=== PATIENT | male | born 1990 | race Caucasian/White ===

== ENCOUNTER → 2022-04-13 14:10 | Outpatient (BNVA) | payer BC, MEDICAID, SELFPAY | PROVIDERS: Visit Provider Registered Nurse Neonatal Intensive Care | DX: Z20.822 Contact with and (suspected) exposure to COVID-19 (principal) | CPT/HCPCS: 87426 ==

== ENCOUNTER 2022-05-26 02:38 | Emergency (ER) | payer BC, MEDICAID, SELFPAY ==
[2022-05-26 02:44] VITALS: BP 150/95; PULSE 116; RESP 16; TEMP 36.6; O2SAT 97
--- NOTE | 2022-05-26 02:50 | ED_ITS ---
HPI - General Adult General: Chief complaint: General Medical Stated complaint: ETOH Time Seen by Provider: 05/26/22 02:39 Source: patient and EMS Mode of arrival: EMS Limitations: no limitations History of Present Illness: 32-year-old male states he has been drinking today along with using marijuana. He states he has had 3-4 shots of alcohol tonight he states he is also smoked 8 bowls of marijuana. He states that roughly an hour ago he started to feel like he was seeing triple vision. He states that his vision has been blurry and he feels like he is seeing 3 of everything. He had no slurred speech no weakness patient is able ambulate here. Denies any pain anywhere PFS ED PFSH: Medical History (Updated 05/26/22 @ 04:29 by Carlos Stanley MD) Seizure Social History (Updated 05/26/22 @ 02:51 by Carlos Stanley MD) Substance/Drug Use: current Substance/Drug use type: Marijuana Physical Exam Const: COMMON NORMALS: no acute distress and patient oriented x3 OTHER: Appears to be under the influence of drugs and alcohol HENMT: COMMON NORMALS: normocephalic and atraumatic HEAD & SCALP: normocephalic and atraumatic Eye: COMMON NORMALS: Equal, round and reactive pupils present and EOMs intact bilaterally PUPIL: Yes Equal, round and reactive pupils present Neck/C-Spine: COMMON NORMALS: full ROM and supple Chest: COMMONS NORMALS: normal inspection of the chest and normal palpation of entire chest wall Resp: COMMON NORMALS: normal respiratory effort, No retractions, No use of accessory muscles and clear to auscultation bilaterally AUSCULTATION: clear to auscultation bilaterally Cardio: COMMON NORMALS: regular rate, regular rhythm and No murmurs present (Cardio) RATE: regular rate RHYTHM: regular rhythm GI: COMMON NORMALS: Normal to inspection, nondistended, normoactive bowel sounds present, Soft to palpation, non-tender and no masses PALPATION: Yes Soft to palpation Extremity: COMMON NORMALS: normal to inspection and full ROM Neuro: COMMON NORMALS: patient oriented x3, moves all extremities and no focal motor deficits Psych: COMMON NORMALS: mental status grossly normal, Normal thought process present and cooperative THOUGHT PROCESS: Normal thought process present Skin: COMMON NORMALS: no rashes or lesions noted and no wounds GENERAL SKIN EXAM: no rashes or lesions noted Course Vital Signs: Vital signs: Vital Signs Temperature 97.8 F 05/26/22 02:44 Pulse Rate 111 H 05/26/22 04:52 Respiratory Rate 16 05/26/22 04:52 Blood Pressure 165/90 05/26/22 04:52 Pulse Oximetry 97 05/26/22 04:52 Oxygen Delivery Me thod 05/26/22 02:44 MDM - General Adult Medical Decision Making Patient presents with blurry vision that is now resolved is likely due to drug abuse he feels improved here he is able ambulate he is stable for discharge he is to follow-up with PCP and return if worsening. Lab Data : 05/26/22 02:25 05/26/22 02:25 Laboratory Results WBC 8.7 10^3/uL (4.0-10.0) 05/26/22 02:25 RBC 4.23 10^6/uL (4.1-5.3) 05/26/22 02:25 Hgb 14.3 g/dL (11.7-16.6) 05/26/22 02:25 Hct 39.9 % (42.0-52.0) L 05/26/22 02:25 MCV 94.3 fl (80-94) H 05/26/22 02:25 MCH 33.8 pg (28.0-34.0) 05/26/22 02:25 MCHC 35.8 g/dL (30.0-36.0) 05/26/22 02:25 RDW 11.3 % (12.1-15.1) L 05/26/22 02:25 Plt Count 181 10^3/cmm (130-400) 05/26/22 02:25 MPV 11.0 fL (7.4-10.4) H 05/26/22 02:25 Neut % (Auto) 29.1 % 05/26/22 02:25 Lymph % (Auto) 66.4 % 05/26/22 02:25 [place] % (Auto) 4.0 % 05/26/22 02:25 Eos % (Auto) 0.2 % 05/26/22 02:25 Baso % (Auto) 0.2 % 05/26/22 02:25 Neut # (Auto) 2.51 10^3/uL (1.8-7.7) 05/26/22 02:25 Lymph # (Auto) 5.8 10^3/uL (0.8-4.8) H 05/26/22 02:25 [place] # (Auto) 0.4 10^3/uL (0.2-0.9) 05/26/22 02:25 Eos # (Auto) 0.0 10^3/uL (0.0-0.8) 05/26/22 02:25 Baso # (Auto) 0.0 10^3/uL (0.0-0.1) 05/26/22 02:25 Nucleated RBC % (auto) 0 % 05/26/22 02:25 Nucleated RBCs # 0.0 /100WBC 05/26/22 02:25 Sodium 140 mmol/L (136-145) 05/26/22 02:25 Potassium 3.4 mmol/L (3.5-5.1) L 05/26/22 02:25 Chloride 101 mmol/L (98-107) 05/26/22 02:25 Carbon Dioxide 26 mmol/L (22-29) 05/26/22 02:25 Anion Gap 16.4 (5-19) 05/26/22 02:25 BUN 13 mg/dL (6-20) 05/26/22 02:25 Creatinine 1.0 mg/dL (0.7-1.2) 05/26/22 02:25 GFR Calculation 87.7 mL/min (90-130) L 05/26/22 02:25 Glucose 126 mg/dL (65-115) H 05/26/22 02:25 Calculated Osmolality 292 mOsm/kg (285-295) 05/26/22 02:25 Calcium 9.7 mg/dL (8.5-10.5) 05/26/22 02:25 Total Bilirubin 0.3 mg/dL (0.15-1.2) 05/26/22 02:25 AST 15 U/L (0-40) 05/26/22 02:25 ALT 11 U/L (0-41) 05/26/22 02:25 Alkaline Phosphatase 40 U/L (40-130) 05/26/22 02:25 Total Protein 7.2 g/dL (6.6-8.7) 05/26/22 02:25 Albumin 4.8 g/dL (3.5-5.2) 05/26/22 02:25 Globulin 2.4 g/dL (1.3-4.6) 05/26/22 02:25 Valproic Acid 134.5 ug/mL (50-100) H 05/26/22 02:25 Ethyl Alcohol < 10 mg/dL (0-10) 05/26/22 02:25 EKG Data EKG 1: I personally reviewed and interpreted this EKG as follows: EKG interpretation date: 05/26/22 EKG interpretation time: 03:00 Interpretation: sinus tach hr [address] or t wave abnormalities qrs 93 qtc 391 Discharge Plan Discharge Patient Disposition: Home Clinical Impression: Blurred vision, Cannabis abuse Prescriptions: No Action clobazam 10 mg tablet 25 mg PO BID oxcarbazepine 300 mg tablet 450 mg PO BID lamotrigine 100 mg tablet 100 mg PO BID aripiprazole 15 mg tablet 7.5 mg PO DAILY divalproex 250 mg tablet,delayed release (DR/EC) 750 mg PO TID mupirocin 2 % ointment 1 applic topical TID Qty: 22 0RF Discharge Orders: Discharge ED (Routine); Ordered 05/26/22 Ordered By: Carlos Stanley Discharge Diet: Advance as tolerated Discharge Activity: Resume usual activity Patient Instructions: Marijuana Abuse Coding Level of Care Code ED Hair Machine Operator for Chg Fwd Exam Comprehensive
--- NOTE | 2022-05-26 03:00 | ECG_ITS ---
[facility] Test Date: 2022-05-26 Pat Name: Guido Dill Department: Room: Gender: Male Seat Trimmer: : 1990 Requested By: Carlos Stanley Order Number: [id number] Sita MD: Ramiro Crocker M.D. Measurements Intervals Matthews Rate: 113 P: 55 NV: 140 QRS: 84 QRSD: 93 T: 48 QT: 324 QTc: 445 Interpretive Statements SINUS TACHYCARDIA VOLTAGE CRITERIA FOR LVH [MEETS CRITERIA IN ONE OF: R(aVL), S(V1), R(V5), R(V5/V6)+S(V1)] Compared to ECG 06/07/2019 06:05:10 Left ventricular hypertrophy now present Sinus bradycardia no longer present Early repolarization no longer present Electronically Signed On 05-27-2022 22:01:40 CDT by Ramiro Crocker M.D. [id number]
[2022-05-26] MEDS: lactated ringers 1,000 ML 999 ML IV (03:02)
[2022-05-26 03:03] LABS: Basophils % 0.2 %; Eosinophils % 0.2 %; Hematocrit 39.9 % (42.0-52.0); Hemoglobin 14.3 g/dL (11.7-16.6); Lymphocytes # 5.8 10^3/uL (0.8-4.8); Lymphocytes % 66.4 %; Mean Corpuscular HGB Conc 35.8 g/dL (30.0-36.0); Mean Corpuscular Hemoglobin 33.8 pg (28.0-34.0); Mean Corpuscular Volume 94.3 fl (80-94); Monocytes # 0.4 10^3/uL (0.2-0.9); Neutrophils # 2.51 10^3/uL (1.8-7.7); Neutrophils % 29.1 %; Nucleated Red Blood Cells % 0 %; Platelet Count 181 10^3/cmm (130-400); Red Blood Count 4.23 10^6/uL (4.1-5.3); Red Cell Distribution Width 11.3 % (12.1-15.1); White Blood Count 8.7 10^3/uL (4.0-10.0)
[2022-05-26] MEDS: LORazepam 1 mg Tablet PO (03:06)
[2022-05-26 03:21] LABS: Valproic Acid Level 134.5 ug/mL (50-100)
[2022-05-26 03:22] LABS: Alanine Aminotransferase 11 U/L (0-41); Albumin Level 4.8 g/dL (3.5-5.2); Alkaline Phosphatase 40 U/L (40-130); Anion Gap 16.4 (5-19); Aspartate Amino Transferase 15 U/L (0-40); Blood Urea Nitrogen 13 mg/dL (6-20); Calcium 9.7 mg/dL (8.5-10.5); Carbon Dioxide 26 mmol/L (22-29); Chloride 101 mmol/L (98-107); Globulin 2.4 g/dL (1.3-4.6); Glomerular Filtration Rate 87.7 mL/min (90-130); Glucose 126 mg/dL (65-115); Osmolality Calculated 292 mOsm/kg (285-295); Potassium 3.4 mmol/L (3.5-5.1); Sodium 140 mmol/L (136-145); Total Bilirubin 0.3 mg/dL (0.15-1.2); Total Protein 7.2 g/dL (6.6-8.7)
[2022-05-26 03:25] LABS: Alcohol Level < 10 mg/dL (0-10)
[2022-05-26 03:40] LABS: Slide Review Slide Review Perform
[2022-05-26 04:52] VITALS: BP 165/90; PULSE 111; RESP 16; O2SAT 97
== END 2022-05-26 04:54 | disposition home or self-care (01) ==
PROVIDERS: Emergency Provider Emergency Medicine
DX: H53.8 Other visual disturbances (principal); F12.10 Cannabis abuse, uncomplicated
CPT/HCPCS: 80053; 80164; 80307; 85025; 93005; 96360; 96361; 99284

== ENCOUNTER 2022-06-25 16:49 | Inpatient (IN) | payer BC, SELFPAY ==
--- NOTE | 2022-06-25 16:52 | ED.C_ITS ---
HPI - Psych General: Chief Complaint: Psychiatric Symptoms Stated Complaint: SUICIDAL IDEATIONS Time Seen by Provider: 06/25/22 16:52 Limitations: other (Mental state) History of Present Illness: Mr. Dill is a 32-year-old gentleman with history of psychiatric disorder and seizures presenting to the emergency department due to suicidal ideation and psychiatric symptoms. History is somewhat limited as the patient appears quite anxious and frantic at times. He does endorse suicidal ideation with plan to cut himself though this has been going on for so me time. Apparently he was in half-way and released and was trying to get back into half-way to see his friends. He has quite focused on seeing his friends and appears to be fearful of not being able to see his friends that he made in half-way. He did report that he would commit a crimes to get back into half-way. He has difficulty articulating why he feels so strongly about this. History is otherwise limited by current psychiatric state. Review of Systems General: Reports: ROS unobtainable due to medical condition PFSH ED PFSH: Medical History (Updated 07/09/22 @ 00:00 by Henri Garrett MD) Bipolar disorder Psychiatric care Seizure Family History (Updated 07/06/22 @ 13:29 by Jcarlos Yu MD) Grandmother Hyperlipidemia Hypertension Mother Lupus Other Cancer Stroke Denies family history of Diabetes CAD (coronary artery disease) Clotting disorder Psychiatric illness Chronic kidney disease (CKD) Anesthesia complication Bleeding disorder Lung disease Social History (Updated 07/06/22 @ 13:11 by Shanell Coon LPN) Smoking and tobacco status: current some day smoker e-cigarettes E-Cigarette Details: vaporizer device Alcohol intake: former Desire information about alcohol rehabilitation?: No Substance/Drug Use: current Substance/Drug use frequency: daily Substance/Drug use type: Marijuana Desire information about substance/drug rehabilitation?: No Lives independently: Yes Marital status: Single Number of children: 0 Current occupational status: unemployed Current gender identity: Male Physical Exam Const: COMMON NORMALS: alert GENERAL APPEARANCE: well developed HENMT: COMMON NORMALS: normocephalic and atraumatic HEAD & SCALP: normocephalic and atraumatic Eye: COMMON NORMALS: conjunctivae normal CONJUNCTIVA: Yes conjunctivae normal SCLERA: sclerae normal Neck/C-Spine: COMMON NORMALS: supple GENERAL: Yes trachea midline Resp: COMMON NORMALS: clear to auscultation bilaterally EFFORT & IN SPECTION: Yes able to speak in complete sentences and Yes tachypneic AUSC ULTATION: clear to auscultation bilaterally Cardio: COMMON NORMALS: regular rate RATE: regular rate GI: COMMON NORMALS: Soft to palpation PALPATION: Yes Soft to palpation and No Tenderness to palpation present (GI) PERCUSSION: normal to percussion Extremity: GENERAL: Yes normal exam except as noted and No edema Neuro: COMMON NORMALS: moves all extremities SENSORIUM/ORIENTATION: Yes alert and No Orientation impaired Psych: ATTITUDE: Yes bizarre ACTIVITY/MOTOR BEHAVIOR: Yes fidgeting MOOD & AFFECT: Yes anxious and Yes fearful THOUGHT PROCESS: Perseverating thought process present THOUGHT CONTENT: Yes Suicidality present INSIGHT: Limited insight present (Psych) JUDGEMENT: questionable Course Vital Signs: Vital signs: Vital Signs Temperature 98.0 F 06/29/22 11:47 Pulse Rate 51 L 06/29/22 11:47 Respiratory Rate 16 06/29/22 11:47 Blood Pressure 100/82 06/29/22 11:47 Pulse Oximetry 97 06/29/22 11:47 Oxygen Delivery Me thod 06/29/22 06:00 MDM - Psych Medical Decision Making 32-year-old male presenting for psychiatric evaluation. Exams above. Patient is acting bizarrely and is fixated on returning to half-way. No leukocytosis or significant hematologic abnormality. Mild dehydration, patient can satisfactorily orally rehydrate. Negative toxic ingestions. Patient became increasingly frantic and Ativan and Geodon given with desired therapeutic effect. Given the patient's bizarre behavior and concern regarding suicidal ideation as well as patient reported plan to admit crime if necessary to get back into half-way I do believe that he requires inpatient psychiatric assessment and stabilization. Based on ED evaluation at this point there is no obvious condition that would preclude the patient from inpatient management of psychiatric symptoms. Discussed case with psychiatry service and patient admitted to neuropsych unit. Medical Records I reviewed the patient's medical records. Lab Data I reviewed the patient's lab results. 06/25/22 17:49 06/25/22 17:49 Laboratory Results WBC 5.8 10^3/uL (4.0-10.0) 06/25/22 17:49 RBC 4.09 10^6/uL (4.1-5.3) L 06/25/22 17:49 Hgb 13.5 g/dL (11.7-16.6) 06/25/22 17:49 Hct 38.1 % (42.0-52.0) L 06/25/22 17:49 MCV 93.2 fl (80-94) 06/25/22 17:49 MCH 33.0 pg (28.0-34.0) 06/25/22 17:49 MCHC 35.4 g/dL (30.0-36.0) 06/25/22 17:49 RDW 11.8 % (12.1-15.1) L 06/25/22 17:49 Plt Count 175 10^3/cmm (130-400) 06/25/22 17:49 MPV 10.4 fL (7.4-10.4) 06/25/22 17:49 Neut % (Auto) 43.9 % 06/25/22 17:49 Lymph % (Auto) 47.9 % 06/25/22 17:49 [place] % (Auto) 7.6 % 06/25/22 17:49 Eos % (Auto) 0.3 % 06/25/22 17:49 Baso % (Auto) 0.3 % 06/25/22 17:49 Neut # (Auto) 2.52 10^3/uL (1.8-7.7) 06/25/22 17:49 Lymph # (Auto) 2.8 10^3/uL (0.8-4.8) 06/25/22 17:49 [place] # (Auto) 0.4 10^3/uL (0.2-0.9) 06/25/22 17:49 Eos # (Auto) 0.0 10^3/uL (0.0-0.8) 06/25/22 17:49 Baso # (Auto) 0.0 10^3/uL (0.0-0.1) 06/25/22 17:49 Nucleated RBC % (auto) 0 % 06/25/22 17:49 Nucleated RBCs # 0.0 /100WBC 06/25/22 17:49 Sodium 133 mmol/L (136-145) L 06/25/22 17:49 Potassium 3.4 mmol/L (3.5-5.1) L 06/25/22 17:49 Chloride 100 mmol/L (98-107) 06/25/22 17:49 Carbon Dioxide 26 mmol/L (22-29) 06/25/22 17:49 Anion Gap 10.4 (5-19) 06/25/22 17:49 BUN 16 mg/dL (6-20) 06/25/22 17:49 Creatinine 0.8 mg/dL (0.7-1.2) 06/25/22 17:49 GFR Calculation 113.5 mL/min (90-130) 06/25/22 17:49 Glucose 96 mg/dL (65-115) 06/25/22 17:49 Calculated Osmolality 277 mOsm/kg (285-295) L 06/25/22 17:49 Calcium 9.4 mg/dL (8.5-10.5) 06/25/22 17:49 Total Bilirubin 0.3 mg/dL (0.15-1.2) 06/25/22 17:49 AST 19 U/L (0-40) 06/25/22 17:49 ALT 14 U/L (0-41) 06/25/22 17:49 Alkaline Phosphatase 44 U/L (40-130) 06/25/22 17:49 Total Protein 6.6 g/dL (6.6-8.7) 06/25/22 17:49 Albumin 4.2 g/dL (3.5-5.2) 06/25/22 17:49 Globulin 2.4 g/dL (1.3-4.6) 06/25/22 17:49 TSH 0.48 uIU/mL (0.27-4.20) 06/25/22 17:49 Salicylates < 0.3 mg/dL (3-10) L 06/25/22 17:49 Acetaminophen < 5.0 ug/mL (10-30) L 06/25/22 17:49 Valproic Acid 53.3 ug/mL (50-100) 06/25/22 17:49 Ethyl Alcohol < 10 mg/dL (0-10) 06/25/22 17:49 Discharge Plan Discharge Patient Disposition: Admitted As Inpatient Admit Provider: Darnell Singh Clinical Impression: Acute psychosis, Suicidal ideation Condition: Stable Discharge Diet: Regular Discharge Activity: Resume usual activity Coding Level of Care Code ED Machine Tool Technician Instructor for Chg Fwd Exam Comprehensive
[2022-06-25 17:07] VITALS: BP 183/102; PULSE 83; RESP 18; O2SAT 98
[2022-06-25] MEDS: ziprasidone 20 mg/mL SDV IM (17:35)
[2022-06-25 18:02] LABS: Basophils % 0.3 %; Eosinophils % 0.3 %; Hematocrit 38.1 % (42.0-52.0); Hemoglobin 13.5 g/dL (11.7-16.6); Lymphocytes # 2.8 10^3/uL (0.8-4.8); Lymphocytes % 47.9 %; Mean Corpuscular HGB Conc 35.4 g/dL (30.0-36.0); Mean Corpuscular Volume 93.2 fl (80-94); Mean Platelet Volume 10.4 fL (7.4-10.4); Monocytes # 0.4 10^3/uL (0.2-0.9); Monocytes % 7.6 %; Neutrophils # 2.52 10^3/uL (1.8-7.7); Neutrophils % 43.9 %; Nucleated Red Blood Cells % 0 %; Platelet Count 175 10^3/cmm (130-400); Red Blood Count 4.09 10^6/uL (4.1-5.3); Red Cell Distribution Width 11.8 % (12.1-15.1); White Blood Count 5.8 10^3/uL (4.0-10.0)
[2022-06-25 18:47] LABS: Acetaminophen < 5.0 ug/mL (10-30); Alanine Aminotransferase 14 U/L (0-41); Albumin Level 4.2 g/dL (3.5-5.2); Alcohol Level < 10 mg/dL (0-10); Alkaline Phosphatase 44 U/L (40-130); Anion Gap 10.4 (5-19); Aspartate Amino Transferase 19 U/L (0-40); Blood Urea Nitrogen 16 mg/dL (6-20); Calcium 9.4 mg/dL (8.5-10.5); Carbon Dioxide 26 mmol/L (22-29); Chloride 100 mmol/L (98-107); Globulin 2.4 g/dL (1.3-4.6); Glomerular Filtration Rate 113.5 mL/min (90-130); Glucose 96 mg/dL (65-115); Osmolality Calculated 277 mOsm/kg (285-295); Potassium 3.4 mmol/L (3.5-5.1); Salicylate < 0.3 mg/dL (3-10); Sodium 133 mmol/L (136-145); Thyroid Stimulating Hormone 0.48 uIU/mL (0.27-4.20); Total Bilirubin 0.3 mg/dL (0.15-1.2); Total Protein 6.6 g/dL (6.6-8.7)
[2022-06-25 18:54] VITALS: BP 115/63; PULSE 58; RESP 17; O2SAT 98
[2022-06-25 20:41] VITALS: BP 115/63; PULSE 58; RESP 17; O2SAT 98
[2022-06-25 20:47] VITALS: BP 115/63; PULSE 58; RESP 17; O2SAT 98
[2022-06-25 22:16] LABS: Valproic Acid Level 53.3 ug/mL (50-100)
--- NOTE | 2022-06-25 23:36 | NUR.SHIFT ---
Patient was sedated but able to be aroused and able to answer a limited amount of questions upon admission to [facility]PU.
[2022-06-26] MEDS: diphenhydrAMINE 50 mg/mL SDV 1mL IM (02:07)
[2022-06-26] MEDS: haloperidol inj 5 mg/mL INJ 1 mL IM (02:07)
[2022-06-26] MEDS: LORazepam 2 mg/mL INJ 1 mL IM (02:07)
--- NOTE | 2022-06-26 02:40 | PC.NURSE ---
Patient woke up around 01:20 stating that he had urinated in his sleep and needed new pants. He was provided with clean dry scrubs. Skin assessment was done while he changed into new scrubs. He then began to become agitated stating that he wanted to leave NOW! It was explained to him again that he was on a 96 hour hold. It was also explained to him again that the Doctor would see him in the morning and the doctor was the only one that could determine his length of stay. He became increasingly angry, belligerent and aggressive. Security and household manager were called as patient was obviously escalating. Patient was standing at the nurses station loudly ranting that he was allowed to call his emg technician and I am not staying here, let me the FUCK OUT OF HERE NOW! Multiple attempts were made by the charge nurse(me)as well as the household manager to deescalate / quiet down the patient's tone and voice level. These attempts were marginally successful. Patient was offered food, snacks, and a beverage as well as PO medication to help him better deal with his situation; of which he refused. Again, Patient was instructed to vacate the nurses station and go to the dayroom or his room. His response was that he was going to stay at the nurses station so I can hear the the shit you people talk about the patients! . At that point I gave the patient five options. 1. Go to his room. 2.Go to the dayroom. 3. Take PO medications to calm him down. 4. Take IM medication willingly to calm him down OR 5. Take IM medication weather he wanted it or not!. He stated he would take a shot if it was IV OXYCONTIN, I want the high! I explained that was not an option however the end result would be the same... He would most likely fall asleep. He stated he would take option # 5. At 01:53 I requested the med nurse to draw up 5mg IM Haldol, 50mg IM Benadryl and 2mg IM Atavan. At 02:05 patient was willingly escorted to his room with Security, Director Of Individual Giving, Med Nurse, DEALER CARD ROOM and myself. Patient received 2mg IM Atavan and 5mg IM Haldol in his right deltoid and 50mg IM Benadryl in his left deltoid. At the time of this note Patient had consumed two sandwiches and two cups of lemonade (of which he had requested calmly, politely and respectfully). Patient is calmly sitting on his bed, in his room reading quietly.
[2022-06-26 06:00] VITALS: RESP 18
--- NOTE | 2022-06-26 10:05 | PC.OT ---
OT EVALUATION ATTEMPTED. SLEEPING SOUNDLY; UNABLE TO AWAKEN. WILL ATTEMPT AGAIN AT A LATER TIME.
--- NOTE | 2022-06-26 12:09 | PC.NURSE ---
Patient refusing to take medications. This RN explained the importance of taking his seizure meds and that he would most likely have one if he skipped doses. He stated, I didn't take them in longterm for two days and I had a seizure so hopefully I will. Patient then stormed off to his room.
[2022-06-26] MEDS: divalproex DR 250 mg Tablet 750 MG PO ×3 (12:39→20:05)
[2022-06-26] MEDS: lamoTRIgine 100 mg Tablet PO ×2 (12:41→16:35)
[2022-06-26] MEDS: OXcarbazepine 300 mg Tablet 900 MG PO ×2 (12:41→16:35)
[2022-06-26] MEDS: CLOBAZAM 10 MG 25 EACH PO ×2 (13:22→16:36)
--- NOTE | 2022-06-26 13:22 | PC.NURSE ---
At 12:38 patient approached the nurses' station and asked, Will I get out of here faster if I take my meds? Another nurses stated, It will help with your chances, yes. Patient then took his medications that he had refused earlier this morning.
--- NOTE | 2022-06-26 13:28 | P.NPUHP_ITS ---
Providers/Chief Complaint Admitting Physician: Darnell Singh MD Chief Complaint: SUICIDAL IDEATIONS HPI NPU History of Present Illness Guido Dill is a 32 year old male who presented to the emergency department with the following report: Chief Complaint: Psychiatric Symptoms Stated Complaint: SUICIDAL IDEATIONS Time Seen by Provider: 06/25/22 16:52 Limitations: other (Mental state) History of Present Illness: Mr. Dill is a 32-year-old gentleman with history of psychiatric disorder and seizures presenting to the emergency department due to suicidal ideation and psychiatric symptoms. History is alexys ewhat limited as the patient appears quite anxious and frantic at times. He does endorse suicidal ideation with plan to cut himself though this has been going on for some time. Apparently he was in group home and released and was trying to get back into group home to see his friends. He has quite focused on seeing his friends and appears to be fearful of not being able to see his friends that he made in group home. He did report that he would admit a crimes to get back into group home. He has difficulty articulating why he feels so strongly about this. History is otherwise limited by current psychiatric state. The patient was admitted to the neuropsychiatric unit for definitive treatment of those issues. He is not currently taking any psychiatric medications. He presents today reporting he does not know why he presents on a 96 hour hold. He has been psychiatrically hospitalized 5 times but could not recall the first time he was hospitalized, has received outpatient services when he was younger but not recently, and has been on some psychiatric medications. He reports vaping and using nicotine pouches, alcohol occasionally, marijuana daily since he was 16 years old, and reports illicit drug use of ?everything except heroine?. He has never had drug and alcohol treatment but has a DUI from when he was 18 years old though no other drug and alcohol related charges. He had been in group home for around 2 weeks for breaking and entering when he went to court and was told he was being released which he was after he had lunch. After he was released, he tried to pay his roommates gutierrez but was told it was a reinoso only gutierrez. He reports he wanted to go back into group home for a night as his friends were in there and he did not appreciate being lied to about the gutierrez. He was then taken to the hospital by the police. He denies having any knowledge of why he was previously psychiatrically hospitalized nor why he was put on psychiatric medication in the past such as [place], reporting that his ?doctor just pre scribes medication?. He reports self-injurious behaviors which began later in life and the last time of which was before he went into group home. Psychiatric History: As above. Substance Abuse History: As above. Family History: He reports he does not know his father?s side of the family and denies mental health or addiction issues on his mother?s side of the family and denies suicide attempts or completions. 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 Psychosocial History: He reports his parents were not together when he was born and he is the only product of this union. He has a younger half brother and his father had one a dditional child. He described his childhood as harsh due to his stepfather being ?a hard man? and denies emotional, physical or sexual abuse. He denies CYS involvement. He reports he has had two people in front of him but denies any tomasz symptoms of PTSD. 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 He endorses being heterosexual with his longest relationship being a year. He has never been , does not have children, has not been in the and endorses being roman catholic. His longest employment history is a year and a half at [employer] and he is not currently employed. He currently lives in an apartment by himself. Legal History: He has been to group home twice, the longest time of which was 2 weeks. Medical History: He denies any known allergies to medications. He reports epilepsy which began at age 22 for which he is on medication. Meds NPU Home Medications Medication Instructions Recorded Confirmed Last Taken Type aripiprazole 15 mg tablet 7.5 mg PO BEDTIME 04/05/22 06/25/22 06/24/22 History clobazam 10 mg tablet 25 mg PO BID 04/05/22 06/25/22 06/24/22 History divalproex 250 mg tablet,delayed 750 mg PO TID 04/05/22 06/25/22 06/24/22 History release lamotrigine 100 mg tablet 100 mg PO BID 04/05/22 06/25/22 06/25/22 History mupirocin 2 % topical ointment 1 applic topical TID #22 grams 04/05/22 06/25/22 Unknown Rx oxcarbazepine 600 mg tablet 900 mg PO BID 06/25/22 06/25/22 06/24/22 History Allergies Allergy/AdvReac Type Severity Reaction Status Date / Time No Known Allergies Allergy Verified 04/13/22 13:56 PFSH NPU PFSH: Medical History Psychiatric care Seizure Social History Smoking and tobacco status: unknown if ever smoked Mental Status Exam MSE Comments: This is a thin well nourished, well developed male with hospital scrubs on with limited grooming and eye contact. No abnormal movements except for psychomotor retardation. Cooperative with exam in mild to moderate distress. Speech was normal rate and volume. Mood described as ?ready to get out of here?, affect is restricted. Thought process, organized. Thought content: patient denies suicidal or homicidal ideation, no delusions reported or noted and denies any auditory or visual hallucinations. Attention and concentration are intact and memory appeared reliable but none were formally tested. He is alert and oriented times three. Insight and judgment are limited. Impulse control is fair. Vitals/I&O/Wt Last Vital Signs Temp 98 F 06/26/22 14:00 Pulse 80 06/26/22 14:00 Resp 16 06/26/22 14:00 BP 118/68 06/26/22 14:00 Pulse Ox 98 06/26/22 14:00 O2 Del Method 06/26/22 14:00 Weight last 48 hrs Weight 68.039 kg Data NPU : 06/25/22 17:49 06/25/22 17:49 A&P Assessment and plan (1) Seizure: (2) Altered mental status: (3) Psychosis: Plan This is a 32 year old man with a record of five psychiatric hospitalizations with likely some psychosis versus mood dysregulation who presents after recently being discharged from group home reporting he tried to return for a night to group home as his friends are all in there and denying any mental health issues or need for changes at this time. 1. Continue current medications 2. Encourage individual, group and milieu therapy 3. Continue q-15 minute check for safety 4. Recommend sober living treatment at the highest level of care to which the patient is willing to commit. Involuntary Hold Information 96 Hour Hold: 96 Hour Involuntary Admission: Yes 96 Hour Hold Ending Date: 06/29/22 96 Hour Hold Ending Time: 18:30 Attestations NPU Medical Necessity Statement*: Inpatient hospitalization is medically necessary and the clinically appropriate intervention at this time. We will monitor medications and make changes as indicated. Patient will be in the hospital for over two midnights. Likely length of stay is three to five days. Coding Level of Care Code Acute Technology Recruiter for Neda Chambers Diagnoses Seizure R56.9 Altered mental status R41.82 Psychosis F29
[2022-06-26 14:00] VITALS: BP 118/68; PULSE 80; RESP 16; TEMP 36.6; O2SAT 98
[2022-06-26 15:07] LABS: Amphetamines Screen Urine Negative (Negative); Barbiturates Screen Urine Negative (Negative); Benzodiazepines Screen Urine Positive (Negative); Cocaine Screen Urine Negative (Negative); Opiate Screen Urine Negative (Negative); PCP Screen Urine Negative (Negative); THC Screen Urine Negative (Negative)
[2022-06-26] MEDS: nicotine 4 mg lozenge MUCOUS MEM (18:46)
[2022-06-26] MEDS: ARIPiprazole 10 mg Tablet 7.5 MG PO (20:05)
[2022-06-26 20:20] VITALS: BP 125/67; PULSE 76; RESP 18; TEMP 36.7; O2SAT 98
[2022-06-27 06:00] VITALS: BP 117/59; PULSE 78; RESP 18; TEMP 36.6; O2SAT 98
[2022-06-27] MEDS: OXcarbazepine 300 mg Tablet 900 MG PO ×2 (07:58→20:11)
[2022-06-27] MEDS: divalproex DR 250 mg Tablet 750 MG PO ×2 (07:59→20:11)
[2022-06-27] MEDS: lamoTRIgine 100 mg Tablet PO ×2 (07:59→20:11)
[2022-06-27] MEDS: CLOBAZAM 10 MG 25 EACH PO ×2 (08:00→20:18)
[2022-06-27] MEDS: nicotine 4 mg lozenge MUCOUS MEM (10:06)
[2022-06-27] MEDS: nicotine 2 mg Gum BUCCAL ×2 (13:38→17:30)
[2022-06-27 14:00] VITALS: BP 131/74; PULSE 107; RESP 16; TEMP 36.6; O2SAT 100
--- NOTE | 2022-06-27 18:10 | P.NPUPN_ITS ---
Subjective NPU Subjective: Patient presents today reporting that he is optimistic about discharge soon. He reports that he wants to return to his apartment and hopefully connect with some of his new friends [facility]. We discussed some of the concerns that were raised in the affidavits and the fact that he would continue to monitor him to determine a plan for when it would be reasonable to discharge. We agreed to meet with a 30-day and discharged him as soon as it is appropriate. Mental Status Exam MSE Comments: This is a thin well nourished, well developed male with hospital scrubs on with limited grooming and eye contact. No abnormal movements except for mild psychomotor retardation. Cooperative with exam in decreasing distress. Speech was normal rate and volume. Mood described as good, affect is restricted. Thought process, organized. Thought content: patient denies suicidal or homicidal ideation, no delusions reported or noted and denies any auditory or visual hallucinations. Attention and concentration are intact and memory appeared unreliable but likely purposely so but none were formally tested. He is alert and oriented times three. Insight and judgment are limited. Impulse cont rol is limited but improving. Vitals/I&O/Wt Last Vital Signs Temp 98.6 F 06/27/22 22:00 Pulse 84 06/27/22 22:00 Resp 18 06/27/22 22:00 BP 134/74 06/27/22 22:00 Pulse Ox 96 06/27/22 22:00 O2 Del Method 06/27/22 22:00 Data NPU 06/25/22 17:49 06/25/22 17:49 A&P Assessment and plan (1) Seizure: (2) Altered mental status: (3) Psychosis: Plan This is a 32 year old man with a record of five psychiatric hospitali zations with likely some psychosis versus mood dysregulation who presents after recently being [facility] reporting he tried to return for a night to penitentiary as his friends are all in there and denying any mental health issues or need for changes at this time. 1. Continue current medications 2. Encourage individual, group and milieu therapy 3. Continue q-15 minute check for safety 4. Recommend sober living treatment at the highest level of care to which the patient is willing to commit. Involuntary Hold Information 96 Hour Hold: 96 Hour Involuntary Admission: Yes 96 Hour Hold Ending Date: 06/29/22 96 Hour Hold Ending Time: 18:30 Attestations NPU Medical Necessity Statement*: Inpatient hospitalization is medically necessary and the clinically appropriate intervention at this time. We will monitor medications and make changes as indicated. Likely length of stay is 1-4 days. Coding Level of Care Code Acute Workers Compensation Claims Assistant for Wilfridg Fwd Diagnoses Seizure R56.9 Altered mental status R41.82 Psychosis F29
[2022-06-27] MEDS: trazodone 50 mg Tablet PO (20:11)
[2022-06-27] MEDS: ARIPiprazole 10 mg Tablet 7.5 MG PO (20:11)
[2022-06-27 22:00] VITALS: BP 134/74; PULSE 84; RESP 18; TEMP 37; O2SAT 96
[2022-06-28 06:00] VITALS: RESP 18
[2022-06-28] MEDS: divalproex DR 250 mg Tablet 750 MG PO ×2 (08:39→22:10)
[2022-06-28] MEDS: OXcarbazepine 300 mg Tablet 900 MG PO ×2 (08:39→22:09)
[2022-06-28] MEDS: lamoTRIgine 100 mg Tablet PO ×2 (08:39→22:10)
[2022-06-28 14:00] VITALS: BP 128/79; PULSE 75; RESP 16; TEMP 36.7; O2SAT 99
[2022-06-28] MEDS: nicotine 2 mg Gum BUCCAL (14:07)
[2022-06-28] MEDS: mupirocin oint 22 gm 1 APPLIC TOPICAL (15:15)
[2022-06-28] MEDS: nicotine 4 mg lozenge MUCOUS MEM (18:31)
--- NOTE | 2022-06-28 18:39 | W.PM.NPUPNS ---
Subjective NPU Subjective: Patient presents today continuing to slowly gain more self control and appeared less frantic. He reported he was doing fine, from the standpoint of medication. We discussed his 90 hold and plan for discharge tomorrow. Mental Status Exam MSE Comments: This is a thin well nourished, well developed male with hospital scrubs on with limited grooming and eye contact. No abnormal movements except for mild psychomotor retardation. Cooperative with exam in no acute distress. Speech was normal rate and volume. Mood described as good, affect is less restricted. Thought process, organized. Thought content: patient denies suicidal or homicidal ideation, no delusions reported or noted and denies any auditory or visual hallucinations. Attention and concentration are intact and memory appeared unreliable but likely purposely so but none were formally tested. He is alert and oriented times three. Insight and judgment are limited. Impulse control is limited but improving. Vitals/I&O/Wt Last Vital Signs Temp 98.9 F 06/28/22 22:00 Pulse 97 06/28/22 22:00 Resp 16 06/28/22 22:00 BP 129/85 06/28/22 22:00 Pulse Ox 98 06/28/22 22:00 O2 Del Method 06/28/22 22:00 Data NPU 06/25/22 17:49 06/25/22 17:49 A&P Assessment and plan (1) Seizure: (2) Altered mental status: (3) Psychosis: (4) Cluster A personality disorder: Plan This is a 32 year old man with a record of five psychiatric hospitalizations with likely some psychosis versus mood dysregulation who presents after recently being discharged from longterm reporting he tried to return for a night to longterm as his friends are all in there and denying any mental health issues or need for changes at this time. 1. Continue current medications 2. Encourage individual, group and milieu therapy 3. Continue q-15 minute check for safety 4. Recommend sober living treatment at the highest level of care to which the patient is willing to commit. Involuntary Hold Information 96 Hour Hold: 96 Hour Involuntary Admission: Yes 96 Hour Hold Ending Date: 06/29/22 96 Hour Hold Ending Time: 18:30 Attestations NPU Medical Necessity Statement*: Inpatient hospitalization is medically necessary and the clinically appropriate intervention at this time. We will monitor medications and make changes as indicated. Plan for discharge tomorrow. Coding Level of Care Code Acute Rn Resource Nurse for Chg Fwd Diagnoses Seizure R56.9 Altered mental status R41.82 Psychosis F29 Cluster A personality disorder F60.89
[2022-06-28 22:00] VITALS: BP 129/85; PULSE 97; RESP 16; TEMP 37.2; O2SAT 98
[2022-06-28] MEDS: trazodone 50 mg Tablet PO (22:10)
[2022-06-28] MEDS: ARIPiprazole 10 mg Tablet 7.5 MG PO (22:10)
--- NOTE | 2022-06-29 02:59 | PC.NURSE ---
pt refused to take the three tabs of oxycarbazepine 300mg. he stated he would take 1.5 tabs because that is what he did at home. attempted to talk pt into taking all three tablets but pt refused.
[2022-06-29 06:00] VITALS: BP 100/82; PULSE 51; RESP 16; TEMP 36.7; O2SAT 97
[2022-06-29] MEDS: divalproex DR 250 mg Tablet 750 MG PO (09:54)
[2022-06-29] MEDS: nicotine 4 mg lozenge MUCOUS MEM (09:54)
[2022-06-29] MEDS: mupirocin oint 22 gm 1 APPLIC TOPICAL (09:55)
[2022-06-29] MEDS: lamoTRIgine 100 mg Tablet PO (09:55)
[2022-06-29] MEDS: OXcarbazepine 300 mg Tablet 900 MG PO (09:55)
--- NOTE | 2022-06-29 11:25 | W.PM.NPUDCS ---
Diagnoses at Discharge Discharge Diagnosis (1) Seizure: Status: Acute (2) Altered mental status: Status: Resolved (3) Psychosis: Status: Resolved (4) Cluster A personality disorder: Status: Acute Reason for Visit Reason for Visit: SUICIDAL IDEATIONS Brief History: History of Present Illness Guido Dill is a 32 year old male who presented to the emergency department with the following report: Chief Complaint: Psychiatric Symptoms Stated Complaint: SUICIDAL IDEATIONS Time Seen by Provider: 06/25/22 16:52 Limitations: other (Mental state) History of Present Illness:?? Mr. Dill is a 32-year-old gentleman with history of psychiatric disorder and seizures presenting to the emergency department due to suicidal ideation and psychiatric symptoms.? History is somewhat limited as the patient appears quite anxious and frantic at times.? He does endorse suicidal ideation with plan to cut himself though this has been going on for some time.? Apparently he was in detention and released and was trying to get back into detention to see his friends.? He has quite focused on seeing his friends and appears to be fearful of not being able to see his friends that he made in detention.? He did report that he would admit a crimes to get back into detention.? He has difficulty articulating why he feels so strongly about this.? History is otherwise limited by current psychiatric state. The patient was admitted to the neuropsychiatric unit for definitive treatment of those issues. He is not currently taking any psychiatric medications. He presents today reporting he does not know why he presents on a 96 hour hold. He has been psychiatrically hospitalized 5 times but could not recall the first time he was hospitalized, has received outpatient services when he was younger but not recently, and has been on some psychiatric medications. He reports vaping and using nicotine pouches, alcohol occasionally, marijuana daily since he was 16 years old, and reports illicit drug use of ?everything except heroine?. He has never had drug and alcohol treatment but has a DUI from when he was 18 years old though no other drug and alcohol related charges. He had been in detention for around 2 weeks for breaking and entering when he went to court and was told he was being released which he was after he had lunch. After he was released, he tried to pay his roommates gutierrez but was told it was a reinoso only gutierrez. He reports he wanted to go back into detention for a night as his friends were in there and he did not appreciate being lied to about the gutierrez. He was then taken to the hospital by the police. He denies having any knowledge of why he was previously psychiatrically hospitalized nor why he was put on psychiatric medication in the past such as [place], reporting that his ?doctor just prescribes medication?. He reports self-injurious behaviors which began later in life and the last time of which was before he went into detention. Psychiatric History: As above. Substance Abuse History: As above. Family History: He reports he does not know his father?s side of the family and denies mental health or addiction issues on his mother?s side of the family and denies suicide attempts or completions. 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 Psychosocial History: He reports his parents were not together when he was born and he is the only product of this union. He has a younger half brother and his father had one additional child. He described his childhood as harsh due to his stepfather being ?a hard man? and denies emotional, physical or sexual abuse. He denies CYS involvement. He reports he has had two people in front of him but denies any tomasz symptoms of PTSD. 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 He endorses being heterosexual with his longest relationship being a year. He has never been , does not have children, has not been in the and endorses being tenriism. His longest employment history is a year and a half at [employer] and he is not currently employed. He currently lives in an apartment by himself. Legal History: He has been to detention twice, the longest time of which was 2 weeks. Medical History: He denies any known allergies to medications. He reports epilepsy which began at age 22 for which he is on medication. Hospital Course Hospital Course He slowly acclimated to the individual, group and milieu therapies provided.? He presented with odd behavior including trying to get back into detention/visit. He was restarted on home medications including those procedures. He progressively improved after restarting his medications. He was able to contract for safety outside of the hospital prior to discharge and showed marked improvement.? During the hospitalization, patient had routine laboratory studies which were within normal limits except for few outliers.? Additionally there was a general medical evaluation which was also within normal limits and revealed no new acute processes. Discharge Summary: At the time of discharge, she denied psychosis or lethality.? Mood and anxiety were well managed.? Patient endorsed a plan to avoid all drugs of abuse and follow-up with the aftercare recommendations of the treatment team.? Patient was evaluated and deemed to be absent credible lethality, and had achieved the maximum benefit from an inpatient hospitalization, so was discharged.? Involuntary Hold Information 96 Hour Hold: 96 Hour Involuntary Admission: Yes 96 Hour Hold Ending Date: 06/29/22 96 Hour Hold Ending Time: 18:30 Mental Status Exam MSE Comments: This is a thin well nourished, well developed male with hospital scrubs on with limited grooming and eye contact. No abnormal movements except for mild psychomotor retardation. Cooperative with exam in no acute distress. Speech was normal rate and volume. Mood described as good, affect is less restricted. Thought process, organized. Thought content: patient denies suicidal or homicidal ideation, no delusions reported or noted and denies any auditory or visual hallucinations. Attention and concentration are intact and memory appeared unreliable but likely purposely so but none were formally tested. He is alert and oriented times three. Insight and judgment are limited. Impulse control is limited but improving. Discharge Data Studies Completed and Pending: Laboratory Results WBC 5.8 10^3/uL (4.0- 10.0) 06/25/22 17:49 RBC 4.09 10^6/uL (4.1 -5.3) L 06/25/22 17:49 Hgb 13.5 g/dL (11.7-1 6.6) 06/25/22 17:49 Hct 38.1 % (42.0-52.0 ) L 06/25/22 17:49 MCV 93.2 fl (80-94) 06/25/22 17:49 MCH 33.0 pg (28.0-34. 0) 06/25/22 17:49 MCHC 35.4 g/dL (30.0-3 6.0) 06/25/22 17:49 RDW 11.8 % (12.1-15.1 ) L 06/25/22 17:49 Plt Count 175 10^3/cmm (130 -400) 06/25/22 17:49 MPV 10.4 fL (7.4-10.4 ) 06/25/22 17:49 Neut % (Auto) 43.9 % 06/25/22 17:49 Lymph % (Auto) 47.9 % 06/25/22 17:49 [place] % (Auto) 7.6 % 06/25/22 17:49 Eos % (Auto) 0.3 % 06/25/22 17:49 Baso % (Auto) 0.3 % 06/25/22 17:49 Neut # (Auto) 2.52 10^3/uL (1.8 -7.7) 06/25/22 17:49 Lymph # (Auto) 2.8 10^3/uL (0.8- 4.8) 06/25/22 17:49 [place] # (Auto) 0.4 10^3/uL (0.2- 0.9) 06/25/22 17:49 Eos # (Auto) 0.0 10^3/uL (0.0- 0.8) 06/25/22 17:49 Baso # (Auto) 0.0 10^3/uL (0.0- 0.1) 06/25/22 17:49 Nucleated RBC % (a uto) 0 % 06/25/22 17:49 Nucleated RBCs # 0.0 /100WBC 06/25/22 17:49 Sodium 133 mmol/L (136-1 45) L 06/25/22 17:49 Potassium 3.4 mmol/L (3.5-5 .1) L 06/25/22 17:49 Chloride 100 mmol/L (98-10 7) 06/25/22 17:49 Carbon Dioxide 26 mmol/L (22-29) 06/25/22 17:49 Anion Gap 10.4 (5-19) 06/25/22 17:49 BUN 16 mg/dL (6-20) 06/25/22 17:49 Creatinine 0.8 mg/dL (0.7-1. 2) 06/25/22 17:49 GFR Calculation 113.5 mL/min (90- 130) 06/25/22 17:49 Glucose 96 mg/dL (65-115) 06/25/22 17:49 Calculated Osmolal ity 277 mOsm/kg (285- 295) L 06/25/22 17:49 Calcium 9.4 mg/dL (8.5-10 .5) 06/25/22 17:49 Total Bilirubin 0.3 mg/dL (0.15-1 .2) 06/25/22 17:49 AST 19 U/L (0-40) 06/25/22 17:49 ALT 14 U/L (0-41) 06/25/22 17:49 Alkaline Phosphata se 44 U/L (40-130) 06/25/22 17:49 Total Protein 6.6 g/dL (6.6-8.7 ) 06/25/22 17:49 Albumin 4.2 g/dL (3.5-5.2 ) 06/25/22 17:49 Globulin 2.4 g/dL (1.3-4.6 ) 06/25/22 17:49 TSH 0.48 uIU/mL (0.27 -4.20) 06/25/22 17:49 Salicylates < 0.3 mg/dL (3-10 ) L 06/25/22 17:49 Urine Opiates Scre en Negative ng/mL (N egative) 06/26/22 14:32 Acetaminophen < 5.0 ug/mL (10-3 0) L 06/25/22 17:49 Ur Barbiturates Sc reen Negative ng/mL (N egative) 06/26/22 14:32 Valproic Acid 53.3 ug/mL (50-10 0) 06/25/22 17:49 Ur Phencyclidine S crn Negative ng/mL (N egative) 06/26/22 14:32 Ur Amphetamines Sc reen Negative ng/mL (N egative) 06/26/22 14:32 U Benzodiazepines Scrn Positive ng/mL (N egative) H 06/26/22 14:32 Urine Cocaine Scre en Negative ng/mL (N egative) 06/26/22 14:32 U Marijuana (THC) Screen Negative ng/mL (N egative) 06/26/22 14:32 Ethyl Alcohol < 10 mg/dL (0-10) 06/25/22 17:49 Vitals: Last Vital Signs Temp 98.0 F 06/29/22 06:00 Pulse 51 L 06/29/22 06:00 Resp 16 06/29/22 06:00 BP 100/82 06/29/22 06:00 Pulse Ox 97 06/29/22 06:00 O2 Del Method 06/29/22 06:00 Discharge Plan Discharge Patient Disposition: Home Condition: Stable Prescriptions: Continued clobazam 10 mg tablet 25 mg PO BID lamotrigine 100 mg tablet 100 mg PO BID aripiprazole 15 mg tablet 7.5 mg PO BEDTIME divalproex 250 mg tablet,delayed release (DR/EC) 750 mg PO TID mupirocin 2 % ointment 1 applic topical TID Qty: 22 0RF oxcarbazepine 600 mg tablet 900 mg PO BID Discharge Orders: Discharge Order (Routine); Ordered 06/29/22 Ordered By: Darnell Singh Referrals: Bonilla Chowdary MD Neurologist [Other] - 07/19/22 11:00 am (Will see Latisha Pacheco NP) [employer] [Other] (Call Lynne Begum for assistance with [employer] insurance. ) [facility] [Outside] - 07/02/22 11:45 am (07/02/22@1200-needs to be here at 11:45am for check-in to see Lali Walton. [facility] will call for other appointments when they get the referrals assigned to appropriate providers. ) Jcarlos Yu MD [Physician] - 07/04/22 10:00 am (Follow up ) Discharge Diet: Regular Discharge Activity: Resume usual activity Patient Instructions: Bipolar Disorder (DC), Altered Mental Status (ED), Psychotic Disorder (DC), Opioid Safety, Seizures Discharge Attestations NPU Time Spent in Discharge Care*: less than 30 min Specific Discharge Activities: Specific discharge activities: educating patient, discussing with caser/social workers/dc planners, documenting/other paperwork and evaluating patient/reviewing data Coding Level of Care Code Acute Chg FW DC note Diagnoses Seizure R56.9 Altered mental status R41.82 Psychosis F29 Cluster A personality disorder F60.89
[2022-06-29 11:47] VITALS: BP 100/82; PULSE 51; RESP 16; TEMP 36.7; O2SAT 97
== END 2022-06-29 12:14 | disposition home or self-care (01) | DRG 885 ==
LOC: ER 17:25 → NP 18:11
PROVIDERS: Admitting Provider Psychiatry & Neurology Psychiatry; Emergency Provider Emergency Medicine; Visit Provider Psychiatry & Neurology Psychiatry
DX: F29 Unspecified psychosis not due to a substance or known physiological condition (principal); R45.851 Suicidal ideations; F60.89 Other specific personality disorders; G40.909 Epilepsy, unspecified, not intractable, without status epilepticus; Z79.899 Other long term (current) drug therapy; Z65.3 Problems related to other legal circumstances
CPT/HCPCS: 80053; 80164; 80306; 80307; 84443; 85025; 96372; 97150; 97165; 99285; J1200; J1630; J2060; J3486

== ENCOUNTER 2022-07-23 13:36 | Outpatient (CLI) | payer BC, MEDICAID, SELFPAY ==
[2022-07-23 14:37] LABS: Basophils % 0.2 %; Eosinophils % 0.4 %; Hematocrit 46.3 % (42.0-52.0); Hemoglobin 15.8 g/dL (11.7-16.6); Lymphocytes # 2.3 10^3/uL (0.8-4.8); Lymphocytes % 42.5 %; Mean Corpuscular HGB Conc 34.1 g/dL (30.0-36.0); Mean Corpuscular Hemoglobin 34.1 pg (28.0-34.0); Mean Corpuscular Volume 99.8 fl (80-94); Mean Platelet Volume 10.6 fL (7.4-10.4); Monocytes # 0.4 10^3/uL (0.2-0.9); Monocytes % 7.8 %; Neutrophils # 2.61 10^3/uL (1.8-7.7); Neutrophils % 48.7 %; Nucleated Red Blood Cells % 0 %; Platelet Count 207 10^3/cmm (130-400); Red Blood Count 4.64 10^6/uL (4.1-5.3); Red Cell Distribution Width 12.2 % (12.1-15.1); White Blood Count 5.4 10^3/uL (4.0-10.0)
[2022-07-23 14:58] LABS: Valproic Acid Level 93.3 ug/mL (50-100)
[2022-07-23 14:59] LABS: Alanine Aminotransferase 16 U/L (0-41); Albumin Level 4.8 g/dL (3.5-5.2); Alkaline Phosphatase 44 U/L (40-130); Anion Gap 12.5 (5-19); Aspartate Amino Transferase 16 U/L (0-40); Blood Urea Nitrogen 15 mg/dL (6-20); Calcium 9.7 mg/dL (8.5-10.5); Carbon Dioxide 28 mmol/L (22-29); Chloride 100 mmol/L (98-107); Globulin 2.1 g/dL (1.3-4.6); Glomerular Filtration Rate 132.4 mL/min (90-130); Glucose 92 mg/dL (65-115); Osmolality Calculated 282 mOsm/kg (285-295); Potassium 4.5 mmol/L (3.5-5.1); Sodium 136 mmol/L (136-145); Total Bilirubin 0.3 mg/dL (0.15-1.2); Total Protein 6.9 g/dL (6.6-8.7)
[2022-07-27 04:19] LABS: Oxcarbazepine Metabolite 22.7 mcg/mL (8.0-35.0)
[2022-07-27 09:54] LABS: Lamotrigine (Lamictal) Level 4.3 mcg/mL (4.0-18.0)
== END 2022-07-23 13:37 | disposition home or self-care (01) ==
PROVIDERS: Visit Provider Nurse Practitioner Gerontology
DX: G40.019 Localization-related (focal) (partial) idiopathic epilepsy and epileptic syndromes with seizures of localized onset, intractable, without status epilepticus (principal)
CPT/HCPCS: 36415; 80053; 80164; 80175; 80183; 85025

== ENCOUNTER 2022-09-28 17:25 | Emergency (ER) | payer BC, MEDICAID, SELFPAY ==
[2022-09-28 17:39] VITALS: BP 124/84; PULSE 73; RESP 16; TEMP 37.1; O2SAT 97; BMI 21.5
--- NOTE | 2022-09-28 18:47 | ED_ITS ---
HPI - Extremity Problem General: Chief complaint: Extremity Injury, Upper Stated complaint: left arm pain Time Seen by Provider: 09/28/22 18:47 History of Present Illness: 32-year-old male patient comes in for injury to the left shoulder. Patient has a history of seizures and believes he might of had a seizure when the injury occurred. Patient responds appropriate to questions. Patient appears nontoxic. On exam we note some abrasion to the anterior left shoulder. Tenderness is noted to palpation. Review of history notes psychosis, cannabis use disorder, bipolar disorder, cluster personality disorder and seizures. Associated symptoms: Deny chest pain, fever(s) or rash Review of Systems Const: Denies: fever(s) ENMT: Denies: throat pain Card: Denies: chest pain Resp: Denies: dyspnea GI: Denies: abdominal pain Musc: Reports: joint pain (Left shoulder pain) Skin/Breast: Denies: rash Neuro: Denies: headache(s) Psych: Denies: depression or paranoia PFSH ED PFSH: Medical History Bipolar disorder Psychiatric care Seizure Family History (Updated 07/06/22 @ 13:29 by Jcarlos Yu MD) Grandmother Hyperlipidemia Hypertension Mother Lupus Other Cancer Stroke Denies family history of Diabetes CAD (coronary artery disease) Clotting disorder Psychiatric illness Chronic kidney disease (CKD) Anesthesia complication Bleeding disorder Lung disease Social History (Updated 07/06/22 @ 13:11 by Shanell Coon LPN) Smoking and tobacco status: current some day smoker e-cigarettes E-Cigarette Details: vaporizer device Alcohol intake: former Desire information about alcohol rehabilitation?: No Desire information about substance/drug rehabilitation?: No Lives independently: Yes Marital status: Single Number of children: 0 Current occupational status: unemployed Current gender identity: Male Physical Exam Const: COMMON NORMALS: alert HENMT: COMMON NORMALS: TM's normal bilaterally and Normal external nose p resent HEAD & SCALP: abrasion (2 superficial abrasions left cheek) NOSE: Normal external nose present TYMPANIC MEMBRANE: TM's normal bilaterally MOUTH: Normal oral and palatal mucosa present Neck/C-Spine: CERVICAL SPINE: Yes cervical ROM normal and No Cervical spine tenderness Chest: COMMONS NORMALS: normal palpation of entire chest wall Resp: COMMON NORMALS: normal respiratory effort and clear to auscultation bilaterally AUSCULTATION: clear to auscultation bilaterally Cardio: COMMON NORMALS: regular rate and regular rhythm RATE: regular rate RHYTHM: regular rhythm GI: COMMON NORMALS: non-tender Back/Pelvis: COMMON NORMALS: thoracic and lumbar spine normal to inspection Extremity: LEFT UPPER EXTREMITY: Yes shoulder joint (Decreased range of motion due to pain) Left shoulder joint: Yes inspection (4 cm circular abrasion an terior left shoulder), Yes palpation (Tenderness) and Yes ROM (Decreased due to pain) Neuro: SENSORIUM/ORIENTATION: Yes alert Psych: COMMON NORMALS: cooperative Skin: TRAUMA: abrasion (Large abrasion left anterior shoulder) Course Vital Signs: Vital signs: Vital Signs Temperature 98.8 F 09/28/22 17:39 Pulse Rate 73 09/28/22 17:39 Respiratory Rate 16 09/28/22 17:39 Blood Pressure 124/84 09/28/22 17:39 Pulse Oximetry 97 09/28/22 17:39 Oxygen Delivery Me thod 09/28/22 17:39 MDM - Extremity (Nontraumatic) Medical Decision Making 32-year-old male patient comes in today for concerns of injury to the left shoulder. On exam patient has a large abrasion approximately 4 cm to the anterior left shoulder. Patient has some increased pain with movement of the s houlder. Distal pulses and sensation are intact. No signs of serious injury is noted. Differential diagnosis includes dislocation of the shoulder, fracture of the humerus, abrasion of the skin, contusion. X-ray noted no fracture or dislocation of the shoulder. Reviewed exam with patient recommended medication for pain and inflammation with diclofenac. Recommend treatment of the wound with bacitracin ointment. Patient reported understanding agreed to plan. Discharge Plan Discharge Patient Disposition: Home Clinical Impression: Abrasion of left shoulder, initial encounter Condition: Stable Prescriptions: New bacitracin 500 unit/gram ointment 1 applic topical BID Qty: 28 0RF diclofenac potassium 50 mg tablet 50 mg PO Q8H PRN (Reason: pain) Qty: 10 0RF No Action divalproex [Depakote] 250 mg tablet,delayed release (DR/EC) 750 mg PO BID Qty: 60 1RF Rx Instructions: 340b aripiprazole 15 mg tablet 7.5 mg PO BEDTIME Qty: 30 1RF Rx Instructions: 340b clobazam 10 mg tablet 25 mg PO BID 30 Days Qty: 150 1RF Rx Instructions: 340b lamotrigine 100 mg tablet 100 mg PO BID 30 Days Qty: 60 1RF Rx Instructions: 340b oxcarbazepine 600 mg tablet 900 mg PO BID 30 Days Qty: 90 1RF Rx Instructions: 340b mupirocin 2 % ointment 1 applic topical BID 7 Days Qty: 22 0RF Discharge Orders: Discharge ED (Routine); Ordered 09/28/22 Ordered By: Humberto Malhotra Discharge Diet: Usual diet Discharge Activity: Increase activity as tolerated Patient Instructions: Abrasion (ED) Activity Restrictions/Additional Instructions: Clean wound gently with mild soap and water. Apply antibiotic ointment do this twice a day until wound is healed. Follow-up with primary care in 2 to 3 days for recheck. Return to emergency department for worsening symptoms such as increased redness, fever greater than 100.4, increased swelling and tenderness to the left arm and hand, or new concerns. Coding Level of Care Code ED Watcher [employer] for Neda Chambers
--- NOTE | 2022-09-28 19:01 | XRR_ITS ---
PROCEDURE INFORMATION: Exam: XR Left Shoulder Exam date and time: 09/28/2022 7:07 PM Age: 32 years old Clinical indication: Pain; Shoulder; Left; Additional info: Injury TECHNIQUE: Imaging protocol: Radiologic exam of the Left shoulder. Views: 2 or more views. COMPARISON: CR XR chest 1V [id number] 06/06/2019 3:56 PM FINDINGS: Bones/joints: Osseous structures are intact. Negative for fracture. Joint spaces are preserved. Soft tissues: Normal. XR/XR shoulder LT min 2V* [id number] IMPRESSION: No acute findings.
== END 2022-09-28 19:27 | disposition home or self-care (01) ==
PROVIDERS: Emergency Provider Nurse Practitioner Family
DX: S40.212A Abrasion of left shoulder, initial encounter (principal); F17.290 Nicotine dependence, other tobacco product, uncomplicated; X58.XXXA Exposure to other specified factors, initial encounter
CPT/HCPCS: 73030; 99283

== ENCOUNTER → 2023-01-17 11:49 | Outpatient (BNVA) | payer BC, MEDICAID, SELFPAY | PROVIDERS: Visit Provider Psychiatry & Neurology Psychiatry | DX: F33.2 Major depressive disorder, recurrent severe without psychotic features (principal); Z79.899 Other long term (current) drug therapy | CPT/HCPCS: 80061; 83036 ==

== ENCOUNTER 2023-03-21 15:03 | Emergency (ER) | payer BC, MEDICAID, SELFPAY ==
[2023-01-22 16:55] VITALS: BP 120/70; BMI 30.9
[2023-03-21 15:07] VITALS: BP 137/86; TEMP 36.7
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
[2023-03-21] MEDS: HYDROcodone-acetaminophen 5-325 mg Tablet 1 TAB PO (15:41)
[2023-03-21] MEDS: tetanus-dipt-pertussis 0.5 mL SDV IM (15:42)
[2023-03-21 15:47] VITALS: BP 135/80; PULSE 81; RESP 17; O2SAT 97
[2023-03-21 16:06] LABS: Glucose Point of Care 89 mg/dL (70-110)
--- NOTE | 2023-03-21 17:07 | XRR_ITS ---
PROCEDURE INFORMATION: Exam: XR Left Elbow Exam date and time: 03/21/2023 5:17 PM Age: 32 years old Clinical indication: Pain; Elbow; Left; Additional info: Abnormal forearm XR, with radial head view please TECHNIQUE: Imaging protocol: Radiologic exam of the left elbow. Views: 3 or more views. COMPARISON: CR XR forearm LT 2V [id number] 03/21/2023 3:56 PM FINDINGS: Bones/joints: Mild cortical irregularity along the articular surface of the radial head, with mild depression. The other bones are intact. No visible elbow joint effusion or hemarthrosis. Soft tissues: Normal. XR/XR elbow LT min 3V* [id number] IMPRESSION: 1. Depression and mild cortical irregularity in the articular surface of the radial head is suspicious for an acute fracture.
[2023-03-21 17:47] VITALS: BP 132/82; PULSE 77; O2SAT 100
[2023-03-21 18:33] VITALS: BP 134/77; PULSE 75; O2SAT 99
--- NOTE | 2023-03-22 07:37 | DCPLANNER ---
Addendum entered by Celine Farrell 04/08/23 15:42: Patient did attend this appointment. Addendum entered by Celine Farrell 03/27/23 11:34: Patient has a follow up appointment scheduled for Saturday, April 01, [address]23 at 8:[address] Erickson at ortho. Original Note: intermediate manager had message to schedule a follow up appointment for patient with ortho. intermediate manager sent patients information to the front office staff at ortho. Patients information will be printed and reviewed. Clinic will call patient with appointment information.
== END 2023-03-21 18:34 | disposition home or self-care (01) ==
PROVIDERS: Emergency Provider Emergency Medicine; PCP Family Medicine
DX: S42.032A Displaced fracture of lateral end of left clavicle, initial encounter for closed fracture (principal); S52.122A Displaced fracture of head of left radius, initial encounter for closed fracture; S60.812A Abrasion of left wrist, initial encounter; S50.312A Abrasion of left elbow, initial encounter; V13.4XXA Pedal cycle driver injured in collision with car, pick-up truck or van in traffic accident, initial encounter; Z23 Encounter for immunization
CPT/HCPCS: 29105; 36416; 70450; 71045; 72125; 73060; 73080; 73090; 73562; 82962; 90471; 90715; 99284

== ENCOUNTER → 2023-04-03 09:27 | Outpatient (BNVA) | payer BC, MEDICAID, SELFPAY ==
[2023-01-22 16:55] VITALS: BP 120/70; BMI 30.9
== END ==
PROVIDERS: PCP Family Medicine; Visit Provider Specialist
DX: S52.122A Displaced fracture of head of left radius, initial encounter for closed fracture; V09.9XXA Pedestrian injured in unspecified transport accident, initial encounter
CPT/HCPCS: 73000; 73080

== ENCOUNTER 2023-04-03 15:18 | Outpatient (CLI) | payer BC, MEDICAID, SELFPAY ==
[2023-01-22 16:55] VITALS: BP 120/70; BMI 30.9
== END 2023-04-03 15:19 | disposition home or self-care (01) ==
LOC: SPT 15:18
PROVIDERS: PCP Family Medicine; Visit Provider Specialist
DX: Z46.89 Encounter for fitting and adjustment of other specified devices (principal); S42.002D Fracture of unspecified part of left clavicle, subsequent encounter for fracture with routine healing; X58.XXXD Exposure to other specified factors, subsequent encounter
CPT/HCPCS: 97760; L3761

== ENCOUNTER 2023-05-14 16:33 | Observation (INO) | payer MEDICAID, SELFPAY ==
[2023-01-22 16:55] VITALS: BP 120/70; BMI 30.9
[2023-05-14] VITALS (35 sets, daily range): BP systolic 98–131; BP diastolic 44–73; PULSE 52–115; RESP 16–39; TEMP 36.6–38.3; O2SAT 90–100; BMI 24.3
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
--- NOTE | 2023-05-14 17:05 | W.ED.SEIZURE ---
HPI - Seizure General: Chief Complaint: Seizure Stated Complaint: seizure Time Seen by Provider: 05/14/23 16:43 Source: patient Mode of arrival: wheelchair Limitations: altered mental status History of Present Illness: HPI Narrative: Patient is a 32-year-old male who presents to ED today after a taxicab brought him for report of witnessed seizure. According to the student truck driver he was also having a seizure in the cab upon arrival to the ED. Apparently post-ictal he was swinging at the student truck driver. Upon my initial assessment in patient's room he is curled in a position complaining of a headache. He states he has had intermittent headaches over the past month or so. He states he discontinued all of his seizure medications 3 days ago thinking that they could be responsible for his headaches. He states his neurologist is in [place]. Patient states he is not sure of the names of all his medications. He tells me he lives here in [place] at the [facility]. Patient admits to marijuana use but no other drug use. complaint: seizure Onset (ago): hour(s) Description of Episode: tonic-clonic movement -: minutes(s) Witnessed: Yes - by Bystander Trauma: No Seizure History: Yes Place: unsure Possible Precipitating Event: none Associated symptoms: Reports confusion; Deny chest pain, chills, fever(s), malaise or syncope Treatments prior to arrival: none Review of Systems Const: Denies: fever(s), chills, body aches, fatigue or malaise Eyes: Denies: change in vision, blurry vision, photophobia, floaters or seeing flashes Card: Denies: chest pain, palpitations, irregular heart rhythm, edema, swelling of feet/ankles, lightheadedness, syncope or pre-syncope Resp: Denies: dyspnea GI: Reports: nausea; Denies: abdominal pain, vomiting or diarrhea Musc: Denies: neck pain, back pain, extremity pain or joint pain Skin/Breast: Denies: rash Neuro: Reports: headache(s), confusion and seizure-like activity; Denies: numbness in extremities, weakness in extremities, sensory changes, frequent falls, dizziness or Slurred speech present [facility] ED PFSH: Medical History Bipolar disorder Psychiatric care Seizure Family History Grandmother Hyperlipidemia Hypertension Mother Lupus Other Cancer Stroke Denies family history of Diabetes CAD (coronary artery disease) Clotting disorder Psychiatric illness Chronic kidney disease (CKD) Anesthesia complication Bleeding disorder Lung disease Social History Smoking and tobacco status: current some day smoker e-cigarettes E-Cigarette Details: vaporizer device E-cig/vape details: rare but if someone has some in a flavor i like. Second hand smoke exposure: Yes Alcohol intake: former Desire information about alcohol rehabilitation?: No Substance/Drug Use: current Substance/Drug use frequency: daily Desire information about substance/drug rehabilitation?: No Adopted: No Caregiver/support person: No Lives independently: Yes Household members: none Housing: Apartment Marital status: Single Number of children: 0 Highest education level completed: High School Graduate service: No Current occupational status: unemployed Current occupational exposures/hazards: No Pets and animals: No Leisure activites: exercise, games and other Leisure activities details: video games, cards, bike rides Sexually active: No Current gender identity: Male Veronica/Synagogue: Orthodox Special veronica needs: No Agree to transfusion: Yes Financial difficulty paying for basics: Somewhat Hard Physical Exam Const: COMMON NORMALS: average body habitus, healthy appearing, alert and well nourished EXAM LIMITATIONS: altered mental status (pt makes statements at times that do not make much sense) GENERAL APPEARANCE: cooperative ORIENTATION/CONSCIOUSNESS: Yes awake, Yes oriented to person, Yes oriented to place and Yes oriented to time OTHER: pt is curled in a position-he does answer the majority of my questions appropriately and can tell me where he lives, his mother's name, names of some of his medications, social history, etc but there are a few times where his comments do not seem to make much sense in the context HENMT: COMMON NORMALS: normocephalic, atraumatic and TM's normal bilaterally HEAD & SCALP: normal to inspection, normocephalic and atraumatic FACE & SINUS: normal facial exam TYMPANIC MEMBRANE: TM's normal bilaterally Eye: COMMON NORMALS: Equal, round and reactive pupils present and EOMs intact bilaterally GENERAL EYE: appearance normal, both eyes and all related structures PUPIL: Yes Equal, round and reactive pupils present Neck/C-Spine: COMMON NORMALS: full ROM, no lymphadenopathy, no meningeal signs and no JVD GENERAL: Yes normal visual inspection, No anterior neck swelling and No submandibular swelling Chest: COMMONS NORMALS: normal inspection of the chest Resp: COMMON NORMALS: normal respiratory effort and clear to auscultation bilaterally AUSCULTATION: clear to auscultation bilaterally Cardio: COMMON NORMALS: no JVD, regular rate and regular rhythm RATE: regular rate RHYTHM: regular rhythm GI: COMMON NORMALS: Normal to inspection, nondistended, normoactive bowel sounds present, Soft to palpation and non-tender PALPATION: Yes Soft to palpation Extremity: COMMON NORMALS: normal to inspection GENERAL: Yes normal exam except as noted Neuro: BABATUNDE COMA SCALE: document GCS findings [place] coma scale eye opening: Spontaneous [place] coma scale verbal response: Orientated [place] coma scale motor response: Obey commands [place] coma scale total score: 15 COMMON NORMALS: moves all extremities, no focal motor deficits and no sensory deficits noted SENSORIUM/ORIENTATION: Yes alert, Yes oriented to person, Yes oriented to place and Yes oriented to time MENINGEAL SIGNS: Yes no meningeal signs Skin: COMMON NORMALS: no rashes or lesions noted GENERAL SKIN EXAM: no rashes or lesions noted Course ED course: Patient witnessed by medical staff services manager having a seizure. IV Ativan was ordered but patient ripped out his IV during administration thus most of it infiltrated. He was given 2mg IM as we tried to re-establish IV access. Following this he was very combative postictal swinging at staff and again trying to rip out his IV/remove his oxygen and trying to flip over on his side/back. He was eventually placed in partial restraints and moved to room 10 where restraints were removed as he was resting comfortably at this time. Patient was re-evaluated shortly later and had rolled himself over in bed and again pulled on his IV causing fluids to infiltrate into his upper arm. He once again became combative during IV attempt requiring eventual restraints again. Dr. Mcadams aware of patient and has assessed him as well. Dr. Stanley aware of restraints and will write additional orders for these. Consultations: Consultation #1: Dr. Dwyer-accepts admission Vital Signs: Vital signs: Vital Signs Temperature 98 F 05/14/23 21:52 Pulse Rate 59 L 05/14/23 21:52 Respiratory Rate 16 05/14/23 21:52 Blood Pressure 130/63 05/14/23 21:52 Pulse Oximetry 100 05/14/23 21:52 Oxygen Delivery Me thod Room Air 05/14/23 19:28 MDM - Seizure MDM Narrative Medical decision making narrative: Patient is a 32-year-old male with a history of seizures here following a witnessed seizure. For whatever reason he arrived to the emergency department via taxicab and according to the student truck driver had a seizure on the way here. He was combative towards student truck driver turing post-ictal period. During my assessment he seemed to be more alert and oriented but shortly later seized and was again combative post-ictal. He had to eventually be placed in restraints to maintain IV access and monitoring. Patient will be admitted to medicine for continued observation. Lab Data 05/14/23 17:30 05/14/23 17:30 Labs: Radiology Impressions Chest X-Ray 05/14/23 17:02 IMPRESSION: No acute findings. Head CT 05/14/23 17:02 IMPRESSION: No acute intracranial abnormality. Laboratory Results WBC 18.67 10^3/uL (3.29-11.43) H 05/14/23 17:30 RBC 4.80 10^6/uL (3.85-5.65) 05/14/23 17:30 Hgb 15.70 g/dL (11.27-16.99) 05/14/23 17:30 Hct 45.2 % (37-53) 05/14/23 17:30 MCV 94.2 fl (82-101) 05/14/23 17:30 MCH 32.7 pg (27-33) 05/14/23 17:30 MCHC 34.7 g/dL (30-55) 05/14/23 17:30 RDW 12.0 % (12.1-15.1) L 05/14/23 17:30 Plt Count 270 10^3/cmm (157-399) 05/14/23 17:30 MPV 10.3 fL (7.4-10.4) 05/14/23 17:30 Neut % (Auto) 86.1 % 05/14/23 17:30 Lymph % (Auto) 8.2 % 05/14/23 17:30 Cobb % (Auto) 5.2 % 05/14/23 17:30 Eos % (Auto) 0.0 % 05/14/23 17:30 Baso % (Auto) 0.2 % 05/14/23 17:30 Neut # (Auto) 16.07 10^3/uL (1.8-7.7) H 05/14/23 17:30 Lymph # (Auto) 1.5 10^3/uL (0.8-4.8) 05/14/23 17:30 Cobb # (Auto) 1.0 10^3/uL (0.2-0.9) H 05/14/23 17:30 Eos # (Auto) 0.0 10^3/uL (0.0-0.8) 05/14/23 17:30 Baso # (Auto) 0.0 10^3/uL (0.0-0.1) 05/14/23 17:30 Nucleated RBC % (auto) 0 % 05/14/23 17:30 Nucleated RBCs # 0.0 /100WBC 05/14/23 17:30 Sodium 142 mmol/L (136-145) 05/14/23 17:30 Potassium 4.2 mmol/L (3.5-5.1) 05/14/23 17:30 Chloride 103 mmol/L (98-107) 05/14/23 17:30 Carbon Dioxide 24 mmol/L (22-29) 05/14/23 17:30 Anion Gap 19.2 (5-19) H 05/14/23 17:30 BUN 15 mg/dL (6-20) 05/14/23 17:30 Creatinine 1.0 mg/dL (0.7-1.2) 05/14/23 17:30 GFR Calculation 87.7 mL/min (90-130) L 05/14/23 17:30 Glucose 74 mg/dL (65-115) 05/14/23 17:30 Calculated Osmolality 293 mOsm/kg (285-295) 05/14/23 17:30 Lactic Acid 4.1 mmol/L (0.5-2.2) H* 05/14/23 17:30 Lactic Acid (Sepsis) 2.2 mmol/L (0.5-2.2) 05/14/23 21:06 Calcium 9.8 mg/dL (8.5-10.5) 05/14/23 17:30 Total Bilirubin 0.5 mg/dL (0.15-1.2) 05/14/23 17:30 AST 29 U/L (0-40) 05/14/23 17:30 ALT 49 U/L (0-41) H 05/14/23 17:30 Alkaline Phosphatase 71 U/L (40-130) 05/14/23 17:30 Ammonia 54 umol/L (16-60) 05/14/23 21:10 Creatine Kinase 710 U/L (39-308) H* 05/14/23 17:30 CK-MB (CK-2) 3.3 ng/mL (0-10.4) 05/14/23 17:30 CK-MB (CK-2) Rel Index % (0.0-5.3) 05/14/23 17:30 C-Reactive Protein 3.0 mg/L (0.0-4.9) 05/14/23 21:06 Total Protein 8.5 g/dL (6.6-8.7) 05/14/23 17:30 Albumin 5.4 g/dL (3.5-5.2) H 05/14/23 17:30 Globulin 3.1 g/dL (1.3-4.6) 05/14/23 17:30 Procalcitonin 0.08 ng/mL (0-0.5) 05/14/23 21:06 Urine Color Yellow (Yellow) 05/14/23 19:17 Urine Appearance Hazy (CLEAR) A 05/14/23 19:17 Urine pH 5 (5-7) 05/14/23 19:17 Ur Specific [place] 1.030 (1.005-1.030) 05/14/23 19:17 Urine Protein 2+ (Negative) H 05/14/23 19:17 Urine Glucose (UA) Norm (Normal) 05/14/23 19:17 Urine Ketones 2+ (Negative) H 05/14/23 19:17 Urine Blood 2+ (Negative) H 05/14/23 19:17 Urine Nitrate Negative (Negative) 05/14/23 19:17 Urine Bilirubin Neg (Negative) 05/14/23 19:17 Urine Urobilinogen Norm mg/dL (Negative) 05/14/23 19:17 Ur Leukocyte Esterase Negative (Negative) 05/14/23 19:17 Urine RBC 0-4 /hpf (0-2) H 05/14/23 19:17 Urine WBC 0-4 /hpf (0-5) H 05/14/23 19:17 Ur Squamous Epith Cells Rare /hpf (0-5) 05/14/23 19:17 Amorphous Sediment 1+ /hpf 05/14/23 19:17 Urine Bacteria Trace /hpf (NONE) 05/14/23 19:17 Urine Mucus 1+ /hpf 05/14/23 19:17 Salicylates 0.8 mg/dL (3-10) L 05/14/23 17:30 Urine Opiates Screen Negative ng/mL (Negative) 05/14/23 19:17 Acetaminophen < 5.0 ug/mL (10-30) L 05/14/23 17:30 Ur Barbiturates Screen Negative ng/mL (Negative) 05/14/23 19:17 Valproic Acid 38.4 ug/mL (50-100) L 05/14/23 21:06 Ur Phencyclidine Scrn Negative ng/mL (Negative) 05/14/23 19:17 Ur Amphetamines Screen Negative ng/mL (Negative) 05/14/23 19:17 U Benzodiazepines Scrn Positive ng/mL (Negative) H 05/14/23 19:17 Urine Cocaine Screen Negative ng/mL (Negative) 05/14/23 19:17 U Marijuana (THC) Screen Positive ng/mL (Negative) H 05/14/23 19:17 Ethyl Alcohol < 10 mg/dL (0-10) 05/14/23 17:30 All radiology interpretation(s) finalized by discharge Discharge Plan Discharge Patient Disposition: Admitted As Inpatient Admit Provider: Agustin Dwyer Clinical Impression: Seizure Condition: Stable Coding Level of Care Code ED Lockstitch Front Edge Tape Sewer for g Fwd Face to Face: Restrn/Seclusion Events leading up to initiation: Combative/Striking out at staff or others (combative post-ictal) Evaluation of patient's immediate situation: Signs of physical distress (post-ictal/altered) Patient reaction since intervention applied: Continued attempts/displays harmful behavior (still trying to rip out IV/oxygen/cardiac leads; trying to roll onto stomach-seizure aspiration risk) Recent labs reviewed: Yes Review of medications: Yes Need for restraint or seclusion is: Continued Attending notified: Yes
[2023-05-14] MEDS: divalproex ER 250 mg Tablet (24H) 500 MG PO (17:22)
[2023-05-14] MEDS: sodium chloride 0.9% 1,000 ML 999 ML IV (17:31)
[2023-05-14 17:38] LABS: Basophils % 0.2 %; Hematocrit 45.2 % (37-53); Lymphocytes # 1.5 10^3/uL (0.8-4.8); Lymphocytes % 8.2 %; Mean Corpuscular HGB Conc 34.7 g/dL (30-55); Mean Corpuscular Hemoglobin 32.7 pg (27-33); Mean Corpuscular Volume 94.2 fl (82-101); Mean Platelet Volume 10.3 fL (7.4-10.4); Monocytes % 5.2 %; Neutrophils # 16.07 10^3/uL (1.8-7.7); Neutrophils % 86.1 %; Nucleated Red Blood Cells % 0 %; Platelet Count 270 10^3/cmm (157-399); White Blood Count 18.67 10^3/uL (3.29-11.43)
[2023-05-14] MEDS: LORazepam 2 mg/mL INJ 1 mL 4 MG IVP (17:55)
[2023-05-14] MEDS: LORazepam 2 mg/mL INJ 1 mL IM (17:55)
--- NOTE | 2023-05-14 17:56 | PC.NURSE ---
HEARD OTHER NURSE SOFIE FOR HELP. ARRIVED TO ROOM TO SEE PT SITTING UP IN BED. PT STARTED SEIZING. SEIZURE LASTED APPROX 45 SECONDS. 15L 02 APPLIED BY NONREBREATHER. PT PULLED IV. ONE NEW IV STARTED IN LEFT UPPER ARM. ATIVAN GIVEN THROUGH IV AND IM. PT PLACED IN TWO POINT RESTRAINT DURING POSTICTAL PHASE FOR TRANSPORT. PT TRANSPORTED TO ROOM 10 FROM ROOM 3. PHYSICIAN SUPPLY AND DISTRIBUTION MANAGER AT BEDSIDE FOR ENTIRETY OF EVENT. PT RESTING IN ROOM 10. RESTRAINTS RELEASED. PT EYES CLOSE. RR 16 CHEST RISE AND FALL EQUAL. PT LYING RIGHT SIDE.
--- NOTE | 2023-05-14 17:57 | PC.NURSE ---
this nurse heard commotion coming from down the hallway and heard other staff calling for help. arrived to room to see pt seizing and seizure lasted about 45sec to 1min. this nurse got verbal orders to pull and override 2mg of Ativan in the Pyxis from GARY V[place]. returned to room with medication and November, RN began pushing the medication when pt pulled out IV and pt did not get full dose of medication. pt was put in restraints for transport from room 3 to room 10. restraints have been removed at this time and seizure pads have been applied. pt is resting with eyes closed and equal chest rise.
--- NOTE | 2023-05-14 17:57 | PC.NURSE ---
Patient was laying in bed while this nurse was placing PIV and drawing labs. As soon as PIV was placed patient jumped impulsively out of bed and starting throwing and swinging. This nurse called for assistance, a team arrived to assist at patient went into a full seizure lasting approximately 45-60 seconds then went into a postical phase combative state. Mid level was present at start of seizure and verbally gave orders for ativan and orders have been placed and given. Patient lost PIV during aggressive state. Patient had non-rebreather placed and suction available while staff had to hold patient down for safety precautions as patient was combative and unaware. Place patient in fish style soft restraints. Moved patient to trauma room 10 to be closer to nurses station and reported off to nurse taking over. Patients belongings moved to room.
[2023-05-14 18:06] LABS: Alanine Aminotransferase 49 U/L (0-41); Albumin Level 5.4 g/dL (3.5-5.2); Alkaline Phosphatase 71 U/L (40-130); Anion Gap 19.2 (5-19); Aspartate Amino Transferase 29 U/L (0-40); Blood Urea Nitrogen 15 mg/dL (6-20); Calcium 9.8 mg/dL (8.5-10.5); Carbon Dioxide 24 mmol/L (22-29); Chloride 103 mmol/L (98-107); Globulin 3.1 g/dL (1.3-4.6); Glomerular Filtration Rate 87.7 mL/min (90-130); Glucose 74 mg/dL (65-115); Osmolality Calculated 293 mOsm/kg (285-295); Potassium 4.2 mmol/L (3.5-5.1); Salicylate 0.8 mg/dL (3-10); Sodium 142 mmol/L (136-145); Total Bilirubin 0.5 mg/dL (0.15-1.2); Total Protein 8.5 g/dL (6.6-8.7)
[2023-05-14 18:10] LABS: Acetaminophen < 5.0 ug/mL (10-30); Alcohol Level < 10 mg/dL (0-10)
[2023-05-14 18:11] LABS: Creatine Phosphokinase 710 U/L (39-308); Lactic Sepsis W/Reflex 4.1 mmol/L (0.5-2.2)
[2023-05-14 18:43] LABS: CKMB 3.3 ng/mL (0-10.4)
[2023-05-14 19:23] LABS: Reflex Lactate Order REFLEX LACTIC ORDERD
[2023-05-14 19:50] LABS: Amphetamines Screen Urine Negative (Negative); Barbiturates Screen Urine Negative (Negative); Benzodiazepines Screen Urine Positive (Negative); Cocaine Screen Urine Negative (Negative); Opiate Screen Urine Negative (Negative); PCP Screen Urine Negative (Negative); THC Screen Urine Positive (Negative)
[2023-05-14 19:59] LABS: Add Urine Microscopic? YES; Bilirubin Urine Neg (Negative); Blood Urine 2+ (Negative); Glucose Urine UA Norm (Normal); Ketones Urine 2+ (Negative); Leukocyte Esterase Urine Negative (Negative); Nitrate Urine Negative (Negative); Protein Urine 2+ (Negative); Urine Appearance Hazy (CLEAR); Urine Color Yellow (Yellow); Urobilinogen Urine Norm (Negative); pH Urine 5 (5-7)
[2023-05-14 20:03] LABS: Add Urine Culture? No; Amorphous Sediment Urine 1+ /hpf; Bacteria Urine TRACE /hpf; Mucus Urine 1+ /hpf; RBC Urine 0-4 /hpf (0-2); Squamous Epithelial Cell Urine RARE /hpf (0-5); WBC Urine 0-4 /hpf (0-5)
[2023-05-14] MEDS: sodium chloride 0.9% 1,000 ML 100 ML IV (21:14)
[2023-05-14 21:39] LABS: Ammonia 54 umol/L (16-60)
[2023-05-14 21:39] LABS: Valproic Acid Level 38.4 ug/mL (50-100)
[2023-05-14 21:40] LABS: Lactic Acid level (Lactate) 2.2 mmol/L (0.5-2.2)
--- NOTE | 2023-05-14 21:40 | PM.HP ---
Providers/Chief Complaint Admitting Physician: Agustin Dwyer MD Primary Care Provider: Jcarlos Yu MD Chief Complaint: seizure History of Present Illness Guido Dill is a 32 year old male with a past medical history of seizures, on Depakote, Lamictal, oxcarbazepine clobazam, bipolar disorder, is on Abilify, follows up with a neurologist at [facility], who presents to [facility] due to seizures. Currently patient is alert and oriented x0, he does awaken, but falls back asleep, he has received several sedating medications, normotensive, bradycardia cardiac, respiratory rate 16, temperature 98, O2 sats 100% on room air, pupils are somewhat constricted, they are reactive to light, he does track, he does withdraw from pain, he does localize pain, he does awaken once stimulated, his GCS score is 9, currently, according to ER provider, patient was brought in from a taxicab due to report of witnessed seizure episode, according to local company tanker driver patient was having seizure in the back of the cab upon arrival to the ED, was postictal and was swinging at the local company tanker driver, upon ER providers evaluation, patient was curled in position complaining of headache, has been having headaches for the last month, so he is stopped taking seizure medications 3 days ago as he was thinking that this was etiology, patient then had a witnessed seizure episode in the ER by staff development nurse, was given IV 4 mg Ativan, but patient ripped out his IV during administration, resulting in most of it being infiltrated, he was then given 2 mg IM Ativan, trying to establish IV access, patient was very combative, postictal, swinging at staff again tried to rip out his IV, remove his oxygen, try to flip over on his side his back, patient was placed in partial restraints, then placed in four-point restraints, currently patient is calm, post ictal, under the effect also of Ativan, Aaron Ngte Review of Systems General: Reports: ROS unobtainable due to medical condition and ROS unobtainable due to mental status Medications/Allergies Home Medications Medication Instructions Recorded Confirmed Last Taken Type aripiprazole 15 mg tablet 7.5 mg PO BEDTIME #30 tabs 07/06/22 03/21/23 03/20/23 Rx clobazam 10 mg tablet 25 mg PO BID 30 days #150 tabs 07/06/22 03/21/23 03/21/23 Rx divalproex 250 mg tablet,delayed 750 mg PO BID #60 tabs 07/06/22 03/21/23 03/21/23 Rx release (Depakote) lamotrigine 100 mg tablet 100 mg PO BID 30 days #60 tabs 07/06/22 03/21/23 03/21/23 Rx oxcarbazepine 600 mg tablet 900 mg PO BID 30 days #90 tabs 07/06/22 03/21/23 03/21/23 Rx ondansetron 4 mg disintegrating 4 mg PO Q8H PRN nausea and 03/21/23 Unknown Rx tablet vomiting #15 tabs oxycodone 5 mg tablet 5 mg PO Q4H PRN pain #10 tabs 03/21/23 Unknown Rx HINGED ELBOW BRACE #1 ea 04/03/23 04/03/23 Unknown Rx naloxone 4 mg/actuation nasal 1 spray intranasal Q3M 04/03/23 04/03/23 Unknown History spray (Narcan) Allergies Allergy/AdvReac Type Severity Reaction Status Date / Time No Known Allergies Allergy Verified 03/07/23 13:06 PFSH Acute PFSH: Medical History Bipolar disorder Psychiatric care Seizure Family History Grandmother Hyperlipidemia Hypertension Mother Lupus Other Cancer Stroke Denies family history of Diabetes CAD (coronary artery disease) Clotting disorder Psychiatric illness Chronic kidney disease (CKD) Anesthesia complication Bleeding disorder Lung disease Social History Smoking and tobacco status: current some day smoker e-cigarettes E-Cigarette Details: vaporizer device E-cig/vape details: rare but if someone has some in a flavor i like. Second hand smoke exposure: Yes Alcohol intake: former Desire information about alcohol rehabilitation?: No Substance/Drug Use: current Substance/Drug use frequency: daily Desire information about substance/drug rehabilitation?: No Adopted: No Caregiver/support person: No Lives independently: Yes Household members: none Housing: Apartment Marital status: Single Number of children: 0 Highest education level completed: High School Graduate service: No Current occupational status: unemployed Current occupational exposures/hazards: No Pets and animals: No Leisure activites: exercise, games and other Leisure activities details: video games, cards, bike rides Sexually active: No Current gender identity: Male Veronica/Orthodoxy: Confucianist Special veronica needs: No Agree to transfusion: Yes Financial difficulty paying for basics: Somewhat Hard Vitals/I&O/Wt Last Vital Signs Temp 98 F 05/14/23 16:43 Pulse 59 L 05/14/23 20:44 Resp 16 05/14/23 20:44 BP 130/63 05/14/23 20:44 Pulse Ox 100 05/14/23 20:44 O2 Del Method Room Air 05/14/23 19:28 05/14/23 05/14/23 05/14/23 06:59 14:59 22:59 Intake Total 1000 / 1000 Balance 1000 / 1000 Weight last 48 hrs Weight 77.111 kg Physical Exam Const: COMMON NORMALS: no acute distress EXAM LIMITATIONS: altered mental status ORIENTATION/CONSCIOUSNESS: Yes awake; not oriented to person, not oriented to place, not oriented to time and not confused HENMT: COMMON NORMALS: normocephalic HEAD & SCALP: normocephalic Eye: COMMON NORMALS: Equal, round and reactive pupils present Neck/C-Spine: COMMON NORMALS: no JVD Lymph: LYMPHATIC: no lymphadenopathy noted Chest: COMMONS NORMALS: normal inspection of the chest Resp: COMMON NORMALS: normal respiratory effort, No retractions, No use of accessory muscles and clear to auscultation bilaterally AUSCULTATION: clear to auscultation bilaterally Cardio: COMMON NORMALS: regular rate, regular rhythm, S1 normal heart sound present and S2 normal heart sound present RATE: regular rate RHYTHM: regular rhythm HEART SOUNDS: S1 normal heart sound present and S2 normal heart sound present GI: COMMON NORMALS: Normal to inspection, nondistended, normoactive bowel sounds present, Soft to palpation and non-tender : COMMON NORMALS: Yes no CVA tenderness Extremity: COMMON NORMALS: capillary refill normal, no clubbing, cyanosis or edema, no calf tenderness and no pedal edema Neuro: OTHER: Does not follow neurologic testing Data 05/14/23 17:30 05/14/23 17:30 Micro: Microbiology 05/14/23 21:06 Blood Culture - Preliminary Blood SPECIMEN COLLECTED 05/14/23 21:06 Blood Culture - Preliminary Blood SPECIMEN COLLECTED A&P Assessment and plan (1) Seizures: (2) Acute encephalopathy: (3) Leukocytosis: (4) Rhabdomyolysis: (5) Elevated lactic acid level: Plan Seizures -Patient has stopped taking his seizure medications for the last 3 days as he has been having persistent headaches -Has received Keppra, Depakote, Ativan in the emergency room -Currently GCS 9, postictal Plan -Monitor in ICU -Neurochecks, aspiration precautions -Continue home appropriate Zoll, clobazam, divalproex, Lamictal, oxcarbazepine -Keppra 500 mg IV twice daily for now Elevated lactic acid, monitor Rhabdomyolysis, likely sec to seizures, IV fluids Acute encephalopathy likely postictal Patient had a combative state in the emergency room, monitor in ICU Complaints of headaches, CT head no acute findings Does not leukocytosis, Kernig sign negative, Babinski sign negative, Pro-Graham, CRP negative, follow blood cultures monitor for fevers Attestations Medical Necessity Statement*: Patient requires hospitalization, outpatient with observation, for seizures, elevated lactic acid, elevated white blood cell count, acute encephalopathy, rhabdomyolysis, leukocytosis Diagnoses Seizures R56.9 Acute encephalopathy G93.40 Leukocytosis D72.829 Rhabdomyolysis M62.82 Elevated lactic acid level R79.89
[2023-05-14 21:47] LABS: Procalcitonin 0.08 ng/mL (0-0.5)
[2023-05-14] MEDS: pantoprazole 40 mg SDV IVP (22:29)
[2023-05-14] MEDS: enoxaparin 40 mg/0.4 mL Syringe SUBCUT (22:29)
[2023-05-14 22:48] LABS: Erythrocyte Sedimentation Rate < 1 mm/hr (0-10)
[2023-05-14] MEDS: acetaminophen 325 mg Tablet 650 MG PO (23:56)
[2023-05-15] VITALS (86 sets, daily range): BP systolic 78–121; BP diastolic 45–82; PULSE 56–114; RESP 12–45; TEMP 36.6–37.2; O2SAT 91–97
[2023-05-15 01:13] LABS: Magnesium 2.1 mg/dL (1.7-2.3); Thyroid Stimulating Hormone 0.37 uIU/mL (0.27-4.20)
[2023-05-15 01:14] LABS: Alcohol Level < 10 mg/dL (0-10)
[2023-05-15 06:11] LABS: Basophils % 0.2 %; Eosinophils % 0.1 %; Hematocrit 41.3 % (37-53); Lymphocytes # 4.5 10^3/uL (0.8-4.8); Lymphocytes % 31.6 %; Mean Corpuscular HGB Conc 33.4 g/dL (30-55); Mean Corpuscular Hemoglobin 32.5 pg (27-33); Mean Corpuscular Volume 97.2 fl (82-101); Mean Platelet Volume 10.6 fL (7.4-10.4); Monocytes # 1.2 10^3/uL (0.2-0.9); Monocytes % 8.4 %; Neutrophils % 59.4 %; Nucleated Red Blood Cells % 0 %; Platelet Count 219 10^3/cmm (157-399); Red Blood Count 4.25 10^6/uL (3.85-5.65); Red Cell Distribution Width 12.1 % (12.1-15.1); White Blood Count 14.29 10^3/uL (3.29-11.43)
[2023-05-15] MEDS: sodium chloride 0.9% 1,000 ML 100 ML IV (06:12)
[2023-05-15 06:28] LABS: Anion Gap 15.7 (5-19); Blood Urea Nitrogen 14 mg/dL (6-20); Calcium 8.6 mg/dL (8.5-10.5); Carbon Dioxide 24 mmol/L (22-29); Chloride 107 mmol/L (98-107); Glomerular Filtration Rate 113.5 mL/min (90-130); Glucose 89 mg/dL (65-115); Osmolality Calculated 296 mOsm/kg (285-295); Potassium 3.7 mmol/L (3.5-5.1); Sodium 143 mmol/L (136-145)
--- NOTE | 2023-05-15 08:40 | PM.DCS ---
Discharge Providers Date of Admission: 05/14/23 21:56 Date of Discharge: May 15, 2023 Attending Provider at Admission: Agustin Dwyer MD Attending Provider at Discharge: Deny Langston MD Primary Care Provider: Jcarlos Yu MD Diagnoses at Discharge Discharge Diagnosis (1) Seizures: Status: Acute (2) Acute encephalopathy: Status: Acute (3) Leukocytosis: Status: Acute (4) Rhabdomyolysis: Status: Acute (5) Elevated lactic acid level: Status: Acute Reason for Visit Reason for Visit: seizure Hospital Course Hospital Course 33 male with past medical history of seizures on antiepileptics follows up with neurologist at [facility] presented with breakthrough seizure for noncompliance with his medications. Patient required IV Ativan for his agitation and hyperactivity in the ER, he was monitored in the ICU he did not experience recurrent/breakthrough seizures during hospitalization. High temperatures likely related to seizure related activity. Patient is not confused at the time of my evaluation, patient is stating that he will follow-up with neurologist at [facility], I have given him refills for his antiepileptics and added Augmentin for possible aspiration pneumonitis. Head CT is unremarkable No signs of UTI Drug screen positive for marijuana and benzodiazepines antiepileptic levels are low Physical Exam Narrative: Awake and alert Euvolemic GCS 15 S1, S2 Abdomen soft Hemodynamically stable Doing well on room air Discharge Data Studies Completed and Pending Completed Studies During Hospitalization Category Date Time Status CT head wo con* [id number] Urgent Cat Scan 05/14/23 17:02 Completed XR chest 1V portable [id number] Urgent Exams 05/14/23 17:02 Completed Pending at discharge Category Date Time Status Blood Culture Stat Lab 05/14/23 21:06 Results Lamotrigine (Lamictal) Level Timed Lab 05/14/23 17:30 Received Radiology Impressions Chest X-Ray 05/14/23 17:02 IMPRESSION: No acute findings. Head CT 05/14/23 17:02 IMPRESSION: No acute intracranial abnormality. Laboratory Results WBC 14.29 10^3/uL (3.29-11.43) H 05/15/23 05:15 RBC 4.25 10^6/uL (3.85-5.65) 05/15/23 05:15 Hgb 13.80 g/dL (11.27-16.99) 05/15/23 05:15 Hct 41.3 % (37-53) 05/15/23 05:15 MCV 97.2 fl (82-101) 05/15/23 05:15 MCH 32.5 pg (27-33) 05/15/23 05:15 MCHC 33.4 g/dL (30-55) 05/15/23 05:15 RDW 12.1 % (12.1-15.1) 05/15/23 05:15 Plt Count 219 10^3/cmm (157-399) 05/15/23 05:15 MPV 10.6 fL (7.4-10.4) H 05/15/23 05:15 Neut % (Auto) 59.4 % 05/15/23 05:15 Lymph % (Auto) 31.6 % 05/15/23 05:15 [place] % (Auto) 8.4 % 05/15/23 05:15 Eos % (Auto) 0.1 % 05/15/23 05:15 Baso % (Auto) 0.2 % 05/15/23 05:15 Neut # (Auto) 8.50 10^3/uL (1.8-7.7) H 05/15/23 05:15 Lymph # (Auto) 4.5 10^3/uL (0.8-4.8) 05/15/23 05:15 [place] # (Auto) 1.2 10^3/uL (0.2-0.9) H 05/15/23 05:15 Eos # (Auto) 0.0 10^3/uL (0.0-0.8) 05/15/23 05:15 Baso # (Auto) 0.0 10^3/uL (0.0-0.1) 05/15/23 05:15 Nucleated RBC % (auto) 0 % 05/15/23 05:15 Nucleated RBCs # 0.0 /100WBC 05/15/23 05:15 ESR < 1 mm/hr (0-10) 05/14/23 17:50 Sodium 143 mmol/L (136-145) 05/15/23 05:15 Potassium 3.7 mmol/L (3.5-5.1) 05/15/23 05:15 Chloride 107 mmol/L (98-107) 05/15/23 05:15 Carbon Dioxide 24 mmol/L (22-29) 05/15/23 05:15 Anion Gap 15.7 (5-19) 05/15/23 05:15 BUN 14 mg/dL (6-20) 05/15/23 05:15 Creatinine 0.8 mg/dL (0.7-1.2) 05/15/23 05:15 GFR Calculation 113.5 mL/min (90-130) 05/15/23 05:15 Glucose 89 mg/dL (65-115) 05/15/23 05:15 Calculated Osmolality 296 mOsm/kg (285-295) H 05/15/23 05:15 Lactic Acid 1.0 mmol/L (0.5-2.2) 05/15/23 05:15 Lactic Acid (Sepsis) 2.2 mmol/L (0.5-2.2) 05/14/23 21:06 Calcium 8.6 mg/dL (8.5-10.5) 05/15/23 05:15 Magnesium 2.1 mg/dL (1.7-2.3) 05/15/23 00:00 Total Bilirubin 0.5 mg/dL (0.15-1.2) 05/14/23 17:30 AST 29 U/L (0-40) 05/14/23 17:30 ALT 49 U/L (0-41) H 05/14/23 17:30 Alkaline Phosphatase 71 U/L (40-130) 05/14/23 17:30 Ammonia 54 umol/L (16-60) 05/14/23 21:10 Creatine Kinase 710 U/L (39-308) H* 05/14/23 17:30 CK-MB (CK-2) 3.3 ng/mL (0-10.4) 05/14/23 17:30 CK-MB (CK-2) Rel Index % (0.0-5.3) 05/14/23 17:30 C-Reactive Protein 3.0 mg/L (0.0-4.9) 05/14/23 21:06 Total Protein 8.5 g/dL (6.6-8.7) 05/14/23 17:30 Albumin 5.4 g/dL (3.5-5.2) H 05/14/23 17:30 Globulin 3.1 g/dL (1.3-4.6) 05/14/23 17:30 Procalcitonin 0.08 ng/mL (0-0.5) 05/14/23 21:06 TSH 0.37 uIU/mL (0.27-4.20) 05/15/23 00:00 Urine Color Yellow (Yellow) 05/14/23 19:17 Urine Appearance Hazy (CLEAR) A 05/14/23 19:17 Urine pH 5 (5-7) 05/14/23 19:17 Ur Specific [place] 1.030 (1.005-1.030) 05/14/23 19:17 Urine Protein 2+ (Negative) H 05/14/23 19:17 Urine Glucose (UA) Norm (Normal) 05/14/23 19:17 Urine Ketones 2+ (Negative) H 05/14/23 19:17 Urine Blood 2+ (Negative) H 05/14/23 19:17 Urine Nitrate Negative (Negative) 05/14/23 19:17 Urine Bilirubin Neg (Negative) 05/14/23 19:17 Urine Urobilinogen Norm mg/dL (Negative) 05/14/23 19:17 Ur Leukocyte Esterase Negative (Negative) 05/14/23 19:17 Urine RBC 0-4 /hpf (0-2) H 05/14/23 19:17 Urine WBC 0-4 /hpf (0-5) H 05/14/23 19:17 Ur Squamous Epith Cells Rare /hpf (0-5) 05/14/23 19:17 Amorphous Sediment 1+ /hpf 05/14/23 19:17 Urine Bacteria Trace /hpf (NONE) 05/14/23 19:17 Urine Mucus 1+ /hpf 05/14/23 19:17 Salicylates 0.8 mg/dL (3-10) L 05/14/23 17:30 Urine Opiates Screen Negative ng/mL (Negative) 05/14/23 19:17 Acetaminophen < 5.0 ug/mL (10-30) L 05/14/23 17:30 Ur Barbiturates Screen Negative ng/mL (Negative) 05/14/23 19:17 Valproic Acid 38.4 ug/mL (50-100) L 05/14/23 21:06 Ur Phencyclidine Scrn Negative ng/mL (Negative) 05/14/23 19:17 Ur Amphetamines Screen Negative ng/mL (Negative) 05/14/23 19:17 U Benzodiazepines Scrn Positive ng/mL (Negative) H 05/14/23 19:17 Urine Cocaine Screen Negative ng/mL (Negative) 05/14/23 19:17 U Marijuana (THC) Screen Positive ng/mL (Negative) H 05/14/23 19:17 Ethyl Alcohol < 10 mg/dL (0-10) 05/15/23 00:00 Vitals Last Vital Signs Temp 99.0 F 05/15/23 01:45 Pulse 76 05/15/23 07:51 Resp 22 H 05/15/23 03:55 BP 113/47 05/15/23 03:55 Pulse Ox 93 05/15/23 07:51 O2 Del Method Room Air 05/15/23 07:51 Discharge Plan Discharge Patient Disposition: Home Condition: Stable Prescriptions: New amoxicillin-pot clavulanate 875-125 mg tablet 1 tab PO BID Qty: 10 0RF Continued clobazam 10 mg tablet 25 mg PO BID 30 Days Qty: 150 1RF Rx Instructions: 340b naloxone [Narcan] 4 mg/actuation spray,non-aerosol 1 spray intranasal Q3M Rx Instructions: spray 1 dose into ONE nostril; alternate nostrils w each dose until help arrives (DME) HINGED ELBOW BRACE See Rx Instructions .ROUTE .MEDSUPPLY Qty: 1 0RF Rx Instructions: As directed ondansetron 4 mg tablet,disintegrating 4 mg PO Q8H PRN (Reason: nausea and vomiting) Qty: 15 0RF oxycodone 5 mg tablet 5 mg PO Q4H PRN (Reason: pain) Qty: 10 0RF Depakote 250 mg tablet,delayed release (DR/EC) 750 mg PO BID Qty: 90 3RF Rx Instructions: 340b oxcarbazepine 600 mg tablet 900 mg PO BID 30 Days Qty: 60 3RF Rx Instructions: 340b lamotrigine 100 mg tablet 100 mg PO BID 30 Days Qty: 90 3RF Rx Instructions: 340b aripiprazole 15 mg tablet 7.5 mg PO BEDTIME Qty: 60 4RF Rx Instructions: 340b Discharge Orders: Discharge Order (Routine); Ordered 05/15/23 Ordered By: Deny Langston Referrals: Jcarlos Yu MD [Primary Care Provider] - 2 weeks Discharge Diet: Regular Discharge Activity: Increase activity as tolerated Patient Instructions: Opioid Safety Discharge Attestations Time Spent in Discharge Care*: greater than 30 min Quality Metrics Clinical Quality Measures [ No reported AMI, CVA or VTE this stay] Coding Level of Care Code Acute Code for Chg Fwd Diagnoses Seizures R56.9 Acute encephalopathy G93.40 Leukocytosis D72.829 Rhabdomyolysis M62.82 Elevated lactic acid level R79.89
[2023-05-15] MEDS: lamoTRIgine 100 mg Tablet PO (08:55)
[2023-05-15] MEDS: divalproex DR 250 mg Tablet 750 MG PO (08:55)
[2023-05-15] MEDS: OXcarbazepine 300 mg Tablet 900 MG PO (08:56)
--- NOTE | 2023-05-15 08:56 | PC.PHAR ---
DISCHARGE ORDERS IN FOR PT- UNABLE TO VERIFY MEDICATIONS
--- NOTE | 2023-05-15 14:27 | PC.NURSE ---
Discharge instructions provided and discussed. Carenotes provided on medications, pt preferred to review at home. Care noted for Epilepsy, rhabdomyolysis and encephalophathy provided and briefly discussed. Follow-up appt,s medications discussed. Pt verbalized understanding. Pt provided with paper scrubs for discharge. Pt to front entrance with belongings, including his big box, to await his taxi cab.
[2023-05-21 22:25] LABS: Lamotrigine (Lamictal) Level <0.5 mcg/mL (2.5-15.0)
== END 2023-05-15 14:26 | disposition home or self-care (01) ==
LOC: ER 20:19 → ICU 21:19
PROVIDERS: Emergency Medicine; Internal Medicine; Admitting Provider Family Medicine; Emergency Provider Physician Assistant; PCP Family Medicine; Visit Provider Internal Medicine
DX: R56.9 Unspecified convulsions (principal); G93.40 Encephalopathy, unspecified; D72.829 Elevated white blood cell count, unspecified; M62.82 Rhabdomyolysis; R79.89 Other specified abnormal findings of blood chemistry; Z91.148 Patient's other noncompliance with medication regimen for other reason; F17.290 Nicotine dependence, other tobacco product, uncomplicated
CPT/HCPCS: 36415; 70450; 71045; 80048; 80053; 80164; 80175; 80306; 80307; 81001; 82140; 82550; 82553; 83605; 83735; 84145; 84443; 85025; 85651; 86140; 87040; 94664; 96361; 96372; 96374; 96375; 99285; C9113; G0378; J1650; J1953; J2060; J7030

== ENCOUNTER 2023-05-20 13:23 | Emergency (ER) | payer MEDICAID, SELFPAY ==
[2023-01-22 16:55] VITALS: BP 120/70; BMI 30.9
[2023-05-20 13:25] VITALS: BP 146/94; PULSE 94; RESP 17; TEMP 36.3; O2SAT 98
--- NOTE | 2023-05-20 13:40 | ED_ITS ---
HPI - Altered Mental Status General: Chief Complaint: Altered Mental Status Stated Complaint: memory issues/possible seizures Time Seen by Provider: 05/20/23 13:36 Source: patient Mode of arrival: ambulatory History of Present Illness: 32-year-old male presents to the emergency room complaints of confusion and disorientation. He was here last week for similar episode. He was admitted to the hospital monitored in the ICU and discharged home initially reactive to exam seizures given some sedating medications. Following day he was discharged home his antiepileptic levels were low at the time. He has not slept well since he left. When he initially admitted the last time he had a low-grade fever was thought to be related to seizure activity. He has not had any chest or abdominal pain no dysuria urgency or frequency no difficulty with bowel or bladder function. No vomiting no diarrhea. Has a history of psychiatric disorders he was admitted in June of last year was extremely anxious and tearful when he arrived at that time was suicidal and was admitted to PCU. He is not suicidal he does not appear to be having any hallucinations auditory or visual. MD complaint: confusion Onset (ago): week(s) Severity: mild Consistency of symptoms: Waxing and Waning Context: history of similar presentation Review of Systems Const: Denies: fever(s) or chills Card: Denies: chest pain Resp: Denies: dyspnea GI: Denies: abdominal pain : Denies: dysuria, urinary frequency or urinary urgency Musc: Denies: neck pain or back pain Skin/Breast: Denies: rash PFSH ED PFSH: Medical History Acute encephalopathy Bipolar disorder Elevated lactic acid level Leukocytosis Psychiatric care Rhabdomyolysis Seizure Seizures Family History Grandmother Hyperlipidemia Hypertension Mother Lupus Other Cancer Stroke Denies family history of Diabetes CAD (coronary artery disease) Clotting disorder Psychiatric illness Chronic kidney disease (CKD) Anesthesia complication Bleeding disorder Lung disease Social History Smoking and tobacco status: current some day smoker e-cigarettes E-Cigarette Details: vaporizer device E-cig/vape details: rare but if someone has some in a flavor i like. Second hand smoke exposure: Yes Alcohol intake: former Desire information about alcohol rehabilitation?: No Substance/Drug Use: current Substance/Drug use frequency: daily Desire information about substance/drug rehabilitation?: No Adopted: No Caregiver/support person: No Lives independently: Yes Household members: none Housing: Apartment Marital status: Single Number of children: 0 Highest education level completed: High School Graduate service: No Current occupational status: unemployed Current occupational exposures/hazards: No Pets and animals: No Leisure activites: exercise, games and other Leisure activities details: video games, cards, bike rides Sexually active: No Current gender identity: Male Veronica/Orthodoxy: Spiritism Special veronica needs: No Agree to transfusion: Yes Financial difficulty paying for basics: Somewhat Hard Physical Exam Const: COMMON NORMALS: no acute distress GENERAL APPEARANCE: cooperative and comfortable ORIENTATION/CONSCIOUSNESS: Yes awake, Yes oriented to person, Yes oriented to place and Yes oriented to time HENMT: COMMON NORMALS: normocephalic, atraumatic and hearing grossly normal bilaterally HEAD & SCALP: normocephalic and atraumatic Resp: COMMON NORMALS: normal respiratory effort, No retractions, No use of accessory muscles and clear to auscultation bilaterally AUSCULTATION: clear to auscultation bilaterally Cardio: COMMON NORMALS: regular rate, regular rhythm and No murmurs present (Cardio) RATE: regular rate RHYTHM: regular rhythm GI: COMMON NORMALS: Soft to palpation and No hepatosplenomegaly present AUSCULTATION: Yes normoactive bowel sounds PALPATION: Yes Soft to palpation, No Tenderness to palpation present (GI), No Guarding due to palpation present (GI) and Yes No hepatosplenomegaly present Extremity: COMMON NORMALS: normal to inspection, capillary refill normal, no clubbing, cyanosis or edema, no calf tenderness and no pedal edema Neuro: SENSORIUM/ORIENTATION: Yes oriented to person, Yes oriented to place and Yes oriented to time Skin: COMMON NORMALS: no rashes or lesions noted GENERAL SKIN EXAM: no rashes or lesions noted Course Vital Signs: Vital signs: Vital Signs Temperature 97.4 F L 05/20/23 13:25 Pulse Rate 94 05/20/23 13:25 Respiratory Rate 17 05/20/23 13:25 Blood Pressure 146/94 05/20/23 13:25 Pulse Oximetry 98 05/20/23 13:25 Oxygen Delivery Me thod Room Air 05/20/23 13:25 MDM - Altered Mental Status Medical Decision Making Past medical records reviewed today's laboratory test reviewed. Also reviewed p revious doctors visits and ER visits and hospital visits. Patient has had memory issues for some time. Did discuss with him the positive finding in the urine recommend that he abstain from marijuana as that can complicate matters. We will make referral to neurology for further evaluation no emergent or acute findings at this time. Medical Records I reviewed the patient's medical records. Lab Data I reviewed the patient's lab results. 05/20/23 13:50 05/20/23 13:50 Laboratory Results WBC 6.69 10^3/uL (3.29-11.43) 05/20/23 13:50 RBC 4.80 10^6/uL (3.85-5.65) 05/20/23 13:50 Hgb 15.70 g/dL (11.27-16.99) 05/20/23 13:50 Hct 44.7 % (37-53) 05/20/23 13:50 MCV 93.1 fl (82-101) 05/20/23 13:50 MCH 32.7 pg (27-33) 05/20/23 13:50 MCHC 35.1 g/dL (30-55) 05/20/23 13:50 RDW 11.4 % (12.1-15.1) L 05/20/23 13:50 Plt Count 233 10^3/cmm (157-399) 05/20/23 13:50 MPV 10.7 fL (7.4-10.4) H 05/20/23 13:50 Neut % (Auto) 48.0 % 05/20/23 13:50 Lymph % (Auto) 45.7 % 05/20/23 13:50 [place] % (Auto) 5.7 % 05/20/23 13:50 Eos % (Auto) 0.1 % 05/20/23 13:50 Baso % (Auto) 0.4 % 05/20/23 13:50 Neut # (Auto) 3.20 10^3/uL (1.8-7.7) 05/20/23 13:50 Lymph # (Auto) 3.1 10^3/uL (0.8-4.8) 05/20/23 13:50 [place] # (Auto) 0.4 10^3/uL (0.2-0.9) 05/20/23 13:50 Eos # (Auto) 0.0 10^3/uL (0.0-0.8) 05/20/23 13:50 Baso # (Auto) 0.0 10^3/uL (0.0-0.1) 05/20/23 13:50 Nucleated RBC % (auto) 0 % 05/20/23 13:50 Nucleated RBCs # 0.0 /100WBC 05/20/23 13:50 Sodium 137 mmol/L (136-145) 05/20/23 13:50 Potassium 4.0 mmol/L (3.5-5.1) 05/20/23 13:50 Chloride 99 mmol/L (98-107) 05/20/23 13:50 Carbon Dioxide 26 mmol/L (22-29) 05/20/23 13:50 Anion Gap 16.0 (5-19) 05/20/23 13:50 BUN 12 mg/dL (6-20) 05/20/23 13:50 Creatinine 0.7 mg/dL (0.7-1.2) 05/20/23 13:50 GFR Calculation 132.4 mL/min (90-130) H 05/20/23 13:50 Glucose 96 mg/dL (65-115) 05/20/23 13:50 Calculated Osmolality 284 mOsm/kg (285-295) L 05/20/23 13:50 Lactic Acid 1.0 mmol/L (0.5-2.2) 05/20/23 13:50 Calcium 9.6 mg/dL (8.5-10.5) 05/20/23 13:50 Magnesium 2.1 mg/dL (1.7-2.3) 05/20/23 13:50 Total Bilirubin 0.4 mg/dL (0.15-1.2) 05/20/23 13:50 AST 14 U/L (0-40) 05/20/23 13:50 ALT 18 U/L (0-41) 05/20/23 13:50 Alkaline Phosphatase 58 U/L (40-130) 05/20/23 13:50 Total Protein 7.6 g/dL (6.6-8.7) 05/20/23 13:50 Albumin 5.2 g/dL (3.5-5.2) 05/20/23 13:50 Globulin 2.4 g/dL (1.3-4.6) 05/20/23 13:50 Urine Color Yellow (Yellow) 05/20/23 14:40 Urine Appearance Clear (CLEAR) 05/20/23 14:40 Urine pH 5 (5-7) 05/20/23 14:40 Ur Specific [place] 1.025 (1.005-1.030) 05/20/23 14:40 Urine Protein 1+ (Negative) H 05/20/23 14:40 Urine Glucose (UA) Norm (Normal) 05/20/23 14:40 Urine Ketones 2+ (Negative) H 05/20/23 14:40 Urine Blood Trace (Negative) H 05/20/23 14:40 Urine Nitrate Negative (Negative) 05/20/23 14:40 Urine Bilirubin 1+ (Negative) H 05/20/23 14:40 Urine Urobilinogen 1 mg/dL (Negative) H 05/20/23 14:40 Ur Leukocyte Esterase Negative (Negative) 05/20/23 14:40 Urine RBC None /hpf (0-2) 05/20/23 14:40 Urine WBC 0-4 /hpf (0-5) H 05/20/23 14:40 Ur Squamous Epith Cells Rare /hpf (0-5) 05/20/23 14:40 Amorphous Sediment Not Reportable 05/20/23 14:40 Urine Bacteria Trace /hpf (NONE) 05/20/23 14:40 Urine Mucus 3+ /hpf 05/20/23 14:40 Urine Opiates Screen Negative ng/mL (Negative) 05/20/23 14:40 Ur Barbiturates Screen Negative ng/mL (Negative) 05/20/23 14:40 Valproic Acid 5.6 ug/mL (50-100) L 05/20/23 13:50 Ur Phencyclidine Scrn Negative ng/mL (Negative) 05/20/23 14:40 Ur Amphetamines Screen Negative ng/mL (Negative) 05/20/23 14:40 U Benzodiazepines Scrn Positive ng/mL (Negative) H 05/20/23 14:40 Urine Cocaine Screen Negative ng/mL (Negative) 05/20/23 14:40 U Marijuana (THC) Screen Positive ng/mL (Negative) H 05/20/23 14:40 Ethyl Alcohol < 10 mg/dL (0-10) 05/20/23 13:50 No radiology studies performed this visit Discharge Plan Discharge Patient Disposition: Home Clinical Impression: Memory loss of unknown cause, Cannabis use disorder, Seizure Condition: Stable Prescriptions: No Action clobazam 10 mg tablet 25 mg PO BID 30 Days Qty: 150 1RF Rx Instructions: 340b naloxone [Narcan] 4 mg/actuation spray,non-aerosol 1 spray intranasal Q3M PRN (Reason: overdose) Rx Instructions: spray 1 dose into ONE nostril; alternate nostrils w each dose until help arrives (DME) HINGED ELBOW BRACE See Rx Instructions .ROUTE .MEDSUPPLY Qty: 1 0RF Rx Instructions: As directed ondansetron 4 mg tablet,disintegrating 4 mg PO Q8H PRN (Reason: nausea and vomiting) Qty: 15 0RF oxycodone 5 mg tablet 5 mg PO Q4H PRN (Reason: pain) Qty: 10 0RF divalproex [Depakote] 250 mg tablet,delayed release (DR/EC) 750 mg PO BID Qty: 90 3RF Rx Instructions: 340b oxcarbazepine 600 mg tablet 900 mg PO BID 30 Days Qty: 60 3RF Rx Instructions: 340b lamotrigine 100 mg tablet 100 mg PO BID 30 Days Qty: 90 3RF Rx Instructions: 340b aripiprazole 15 mg tablet 7.5 mg PO BEDTIME Qty: 60 4RF Rx Instructions: 340b amoxicillin-pot clavulanate 875-125 mg tablet 1 tab PO BID Qty: 10 0RF Rx Instructions: rx written 05/15/23 not picked up from [facility] Discharge Orders: Discharge ED (Routine); Ordered 05/20/23 Ordered By: Rik Mcguire Referrals: Jcarlos Yu MD [Primary Care Provider] - Patient Instructions: Opioid Safety, Pain Management Activity Restrictions/Additional Instructions: You are seen today for complaints of memory loss this has been an ongoing issue there was no acute finding in the emergency room or with review of recent testing. Recommend that you have a consultation with neurology the emergency room case management will make an appointment for you. 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
[2023-05-20 13:56] LABS: Basophils % 0.4 %; Eosinophils % 0.1 %; Hematocrit 44.7 % (37-53); Lymphocytes # 3.1 10^3/uL (0.8-4.8); Lymphocytes % 45.7 %; Mean Corpuscular HGB Conc 35.1 g/dL (30-55); Mean Corpuscular Hemoglobin 32.7 pg (27-33); Mean Corpuscular Volume 93.1 fl (82-101); Mean Platelet Volume 10.7 fL (7.4-10.4); Monocytes # 0.4 10^3/uL (0.2-0.9); Monocytes % 5.7 %; Nucleated Red Blood Cells % 0 %; Platelet Count 233 10^3/cmm (157-399); Red Cell Distribution Width 11.4 % (12.1-15.1); White Blood Count 6.69 10^3/uL (3.29-11.43)
[2023-05-20 14:21] LABS: Alanine Aminotransferase 18 U/L (0-41); Albumin Level 5.2 g/dL (3.5-5.2); Alkaline Phosphatase 58 U/L (40-130); Aspartate Amino Transferase 14 U/L (0-40); Blood Urea Nitrogen 12 mg/dL (6-20); Calcium 9.6 mg/dL (8.5-10.5); Carbon Dioxide 26 mmol/L (22-29); Chloride 99 mmol/L (98-107); Creatinine Clr Calc Pharmacy 151.0344; Globulin 2.4 g/dL (1.3-4.6); Glomerular Filtration Rate 132.4 mL/min (90-130); Glucose 96 mg/dL (65-115); Magnesium 2.1 mg/dL (1.7-2.3); Osmolality Calculated 284 mOsm/kg (285-295); Sodium 137 mmol/L (136-145); Total Bilirubin 0.4 mg/dL (0.15-1.2); Total Protein 7.6 g/dL (6.6-8.7)
--- NOTE | 2023-05-20 14:21 | PC.PHAR ---
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
[2023-05-20 14:28] LABS: Alcohol Level < 10 mg/dL (0-10)
[2023-05-20 14:32] LABS: Valproic Acid Level 5.6 ug/mL (50-100)
[2023-05-20 15:13] LABS: Amphetamines Screen Urine Negative (Negative); Barbiturates Screen Urine Negative (Negative); Benzodiazepines Screen Urine Positive (Negative); Cocaine Screen Urine Negative (Negative); Glucose Urine UA Norm (Normal); Ketones Urine 2+ (Negative); Opiate Screen Urine Negative (Negative); PCP Screen Urine Negative (Negative); Protein Urine 1+ (Negative); Specific Gravity, Urine 1.025 (1.005-1.030); THC Screen Urine Positive (Negative); Urine Appearance Clear (CLEAR); Urine Color Yellow (Yellow); pH Urine 5 (5-7)
[2023-05-20 15:14] LABS: Add Urine Microscopic? YES; Bacteria Urine TRACE /hpf; Bilirubin Urine 1+ (Negative); Blood Urine Trace (Negative); Leukocyte Esterase Urine Negative (Negative); Mucus Urine 3+ /hpf; Nitrate Urine Negative (Negative); Urobilinogen Urine 1 mg/dL (Negative); WBC Urine 0-4 /hpf (0-5)
[2023-05-20 15:15] LABS: Add Urine Culture? No; Squamous Epithelial Cell Urine RARE /hpf (0-5)
--- NOTE | 2023-05-21 08:18 | PC.SOCIAL ---
Neurology Referral Referral to clinic at this time. Clinic will contact patient with appt date/time.
[2023-05-25 22:58] LABS: Lamotrigine (Lamictal) Level 1.8 mcg/mL (2.5-15.0)
== END 2023-05-20 15:43 | disposition home or self-care (01) ==
PROVIDERS: Emergency Provider Family Medicine; PCP Family Medicine
DX: R41.3 Other amnesia (principal); F12.10 Cannabis abuse, uncomplicated; R56.9 Unspecified convulsions; F17.290 Nicotine dependence, other tobacco product, uncomplicated
CPT/HCPCS: 36415; 80053; 80164; 80175; 80306; 80307; 81001; 83605; 83735; 85025; 99283

== ENCOUNTER 2024-03-26 10:51 | Emergency (ER) | payer MEDICAID, SELFPAY ==
[2023-01-22 16:55] VITALS: BP 120/70; BMI 30.9
[2024-03-26 11:00] VITALS: BP 137/80; PULSE 79; RESP 18; TEMP 37.2; O2SAT 97
--- NOTE | 2024-03-26 11:07 | XR_ITS ---
WS: [id number] Examination: XR knee RT 3V* [id number] Reason for Exam: injury Date: March 26, 2024 Comparison: None. Findings: The bone density is maintained. There is no destruction There is soft tissue swelling anteriorly above the patella. The joint effusion is identified. There is no displaced fracture. No dislocation is identified XR/XR knee RT 3V* [id number] Impression: There is no displaced fracture Soft tissue swelling and joint effusion is identified.
--- NOTE | 2024-03-26 11:07 | XR_ITS ---
WS: [id number] Examination: XR hand LT min 3V* [id number] Reason for Exam: injury Date: March 26, 2024 Comparison: None. Findings: The bone density is maintained There is no displaced fracture or dislocation. XR/XR hand LT min 3V* [id number] Impression: No displaced fracture noted.
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
[2024-03-26 11:51] VITALS: BP 117/70; PULSE 80; RESP 15; O2SAT 97
== END 2024-03-26 11:54 | disposition home or self-care (01) ==
PROVIDERS: Emergency Provider Emergency Medicine; PCP Family Medicine
DX: S01.412A Laceration without foreign body of left cheek and temporomandibular area, initial encounter (principal); S01.511A Laceration without foreign body of lip, initial encounter; F17.290 Nicotine dependence, other tobacco product, uncomplicated; V18.4XXA Pedal cycle driver injured in noncollision transport accident in traffic accident, initial encounter
CPT/HCPCS: 12014; 73130; 73562; 99284

== ENCOUNTER 2024-03-26 13:19 | Emergency (ER) | payer MEDICAID, SELFPAY ==
[2023-01-22 16:55] VITALS: BP 120/70; BMI 30.9
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
[2024-03-26 13:24] VITALS: BP 122/86; PULSE 63; TEMP 36.9; O2SAT 97; BMI 22.9
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
--- NOTE | 2024-03-26 15:05 | PC.PHAR ---
[facility] HAS FILL GAP-LAST FILL 05/28/23 ON ALL PT MEDICATIONS. EXTERNAL LIST SHOWS MEDS FILLED 02/26/24 THROUGH [facility]. [facility] HAS NEW RX FOR CLOBAZAM 10MG TAKE 2.5 TABLETS (25MG) TWICE DAILY-ON ORDER FOR FILL ON Saturday03/27/24.
[2024-03-26 15:27] VITALS: BP 112/72; PULSE 62; O2SAT 95
== END 2024-03-26 15:28 | disposition home or self-care (01) ==
PROVIDERS: Emergency Provider Emergency Medicine; PCP Family Medicine
DX: S09.8XXA Other specified injuries of head, initial encounter (principal); S00.91XA Abrasion of unspecified part of head, initial encounter; Z72.0 Tobacco use; S00.81XA Abrasion of other part of head, initial encounter; S01.81XA Laceration without foreign body of other part of head, initial encounter; V19.9XXA Pedal cyclist (driver) (passenger) injured in unspecified traffic accident, initial encounter
CPT/HCPCS: 70450; 72125; 99284

== ENCOUNTER 2024-04-02 14:13 | Emergency (ER) | payer MEDICAID, SELFPAY ==
[2023-01-22 16:55] VITALS: BP 120/70; BMI 30.9
[2024-04-02 14:23] VITALS: BP 123/81; PULSE 79; RESP 16; TEMP 36.7; O2SAT 97; BMI 20.9
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
--- NOTE | 2024-04-02 14:48 | XR_ITS ---
WS: [id number] Left hand, 3 views, 04/02/2024 Clinical Data: persistent pain after injury Comparison: Left hand, 03/26/2024 Findings: No fractures or dislocations are seen. The soft tissues are unremarkable. The joint spaces are normal XR/XR hand LT min 3V* [id number] Impression: Negative left hand.
== END 2024-04-02 15:41 | disposition home or self-care (01) ==
PROVIDERS: Emergency Provider Nurse Practitioner Family; PCP Family Medicine
DX: Z48.02 Encounter for removal of sutures (principal); M79.642 Pain in left hand; Z76.0 Encounter for issue of repeat prescription; G40.909 Epilepsy, unspecified, not intractable, without status epilepticus; Z72.0 Tobacco use
CPT/HCPCS: 73130; 99283

== ENCOUNTER 2024-04-15 08:35 | Inpatient (IN) | payer MEDICAID, SELFPAY ==
[2023-01-22 16:55] VITALS: BP 120/70; BMI 30.9
[2024-04-15] VITALS (79 sets, daily range): BP systolic 68–172; BP diastolic 42–108; PULSE 33–100; RESP 10–53; TEMP 36.4; O2SAT 75–100
--- NOTE | 2024-04-15 08:40 | ECG_ITS ---
[facility] Test Date: 2024-04-15 Pat Name: Guido Dill Department: Room: Gender: Male Director Of Student Affairs: : 1990 Requested By: Rik Toledo Order Number: [id number] Sita MD: Yennifer Sanchez M.D. Measurements Intervals [place] Rate: 80 P: 57 FL: 120 QRS: 81 QRSD: 94 T: 49 QT: 387 QTc: 447 Interpretive Statements SINUS RHYTHM LEFT VENTRICULAR HYPERTROPHY AND ST-T CHANGE [VOLTAGE CRITERIA PLUS ST/T ABNORMALITY] Compared to ECG 05/26/2022 03:00:46 ST (T wave) deviation now present Sinus tachycardia no longer present Electronically Signed On 04-15-2024 17:36:01 CDT by Yennifer Sanchez M.D. [email or web address] [email or web address] [email or web address]/store/NU/[id number] f
--- NOTE | 2024-04-15 08:43 | XR_ITS ---
WS: [id number] Examination: XR chest 1V portable [id number] Reason for Exam: dyspnea/cough Date: 04/15/2024 Comparison: 05/14/2023 Findings: Heart is not enlarged. The mediastinum is not widened. There is hyperinflation There is no effusion or consolidation. XR/XR chest 1V portable [id number] Impression: The lungs appear hyperinflated. There is no focal infiltrate.
[2024-04-15 09:10] LABS: Basophils % 0.4 %; Eosinophils # 0.1 10^3/uL (0.0-0.8); Eosinophils % 0.9 %; Lymphocytes # 3.3 10^3/uL (0.8-4.8); Lymphocytes % 60.3 %; Mean Corpuscular HGB Conc 34.8 g/dL (30-55); Mean Corpuscular Hemoglobin 33.2 pg (27-33); Mean Corpuscular Volume 95.5 fl (82-101); Mean Platelet Volume 10.5 fL (7.4-10.4); Monocytes # 0.3 10^3/uL (0.2-0.9); Monocytes % 6.3 %; Neutrophils # 1.74 10^3/uL (1.8-7.7); Neutrophils % 31.9 %; Nucleated Red Blood Cells % 0 %; Platelet Count 206 10^3/cmm (157-399); Red Cell Distribution Width 11.8 % (12.1-15.1); White Blood Count 5.44 10^3/uL (3.29-11.43)
[2024-04-15 09:28] LABS: Troponin(5th) Baseline 11 ng/L (0-15)
[2024-04-15 09:38] LABS: Alanine Aminotransferase 15 U/L (0-41); Albumin Level 4.8 g/dL (3.5-5.2); Alkaline Phosphatase 54 U/L (40-130); Anion Gap 16.5 (5-19); Aspartate Amino Transferase 13 U/L (0-40); Blood Urea Nitrogen 14 mg/dL (6-20); Carbon Dioxide 27 mmol/L (22-29); Chloride 103 mmol/L (98-107); Globulin 2.2 g/dL (1.3-4.6); Glomerular Filtration Rate 131.5 mL/min (90-130); Glucose 115 mg/dL (65-115); Osmolality Calculated 297 mOsm/kg (285-295); Potassium 3.5 mmol/L (3.5-5.1); Sodium 143 mmol/L (136-145); Thyroid Stimulating Hormone 1.83 uIU/mL (0.27-4.20); Total Bilirubin 0.4 mg/dL (0.15-1.2)
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
--- NOTE | 2024-04-15 10:33 | ECG_ITS ---
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 Measurements Intervals [place] Rate: 38 P: -7 CA: 156 QRS: 81 QRSD: 96 T: 52 QT: 457 QTc: 368 Interpretive Statements SINUS BRADYCARDIA LEFT VENTRICULAR HYPERTROPHY AND ST-T CHANGE [VOLTAGE CRITERIA PLUS ST/T ABNORMALITY] CRITICAL TEST RESULT Compared to ECG 04/15/2024 08:40:01 Sinus rhythm no longer present ST (T wave) deviation still present Electronically Signed On 04-15-2024 17:44:11 CDT by Yennifer Sanchez M.D. [id number]
--- NOTE | 2024-04-15 10:55 | ECG_ITS ---
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 Measurements Intervals [place] Rate: 41 P: -10 [place]: 171 QRS: 80 QRSD: 96 T: 52 QT: 456 QTc: 378 Interpretive Statements SINUS BRADYCARDIA LEFT VENTRICULAR HYPERTROPHY AND ST-T CHANGE [VOLTAGE CRITERIA PLUS ST/T ABNORMALITY] Early repolarization changes, generalized Compared to ECG 04/15/2024 10:33:51 No significant changes Electronically Signed On 04-15-2024 17:36:52 CDT by Yennifer Sanchez M.D. [id number] f
[2024-04-15] MEDS: sodium chloride 0.9% 1,000 ML 999 ML IV (11:19)
--- NOTE | 2024-04-15 11:21 | PC.PHAR ---
Addendum entered by Radha Hussein 04/15/24 11:32: Verified with [facility] in [place] [phone] last fill of Depakote 250mg twice daily, Lamotrigine 25mg 3 tablets twice daily, and Oxcarbazepine 600mg 1.5 tablets twice daily. All are 30 day supply and verified with pharmacy staff. They stated pt is known for running out and not refilling medications. Original Note: pt has several medications with fill dates of 02/26/24 for 30 day supply
[2024-04-15 11:59] LABS: Valproic Acid Level 2.8 ug/mL (50-100)
--- NOTE | 2024-04-15 12:26 | USCV_ITS ---
Guido Dill Age: 33 Gender: M : 1990 Exam Date: 04/15/2024 12:44 Ordering Phys: Garett De Dios MD Technologist: [place] [facility] [place]: chato cardia BP: 139 / 49 HR: 63 Rhythm: Sinus Technical Quality: Adequate MEASUREMENTS (Male / Female) Normal Values 2D ECHO LV Diastolic Diameter PLAX 4.1 cm 4.2 - 5.9 / 3.9 - 5.3 cm IVS Diastolic Thickness 1.1 cm 0.6 - 1.0 / 0.6 - 0.9 cm IVS Systolic Thickness 1.3 cm LVPW Diastolic Thickness 1.3 cm 0.6 - 1.0 / 0.6 - 0.9 cm LVPW Systolic Thickness 1.3 cm LVOT Diameter 2.1 cm LV Ejection Fraction 2D Teich 65.5 % LV Ejection Fraction MOD 4C 72.8 % LV Ejection Fraction MOD 2C 73.8 % LV Ejection Fraction 2C AL 74.3 % LA Diameter 3.2 cm RA Systolic Volume 4C AL 29.5 ml RA Systolic Volume 4C MOD 27.9 ml LA Sys Volume AL 49.3 cm cubed LA Sys Volume Index AL 27.9 cm cubed/m squared Aorta at Sinotubular Diameter 2.4 cm IVC Diameter 2.4 cm M-MODE LA Ao Ratio MM 1.0 AV Cusp Separation MM 2.9 cm DOPPLER AV Peak Velocity 113.0 cm/s LVOT Peak Velocity 76.0 cm/s AV Area Cont Eq vti 2.7 cm squared AV Area Cont Eq pk 2.4 cm squared MV Area PHT 3.8 cm squared Mitral E to A Ratio 1.9 TR Peak Velocity 202.0 cm/s TR Peak Gradient 16.3 mmHg TV Peak E Velocity 113.0 cm/s PV Peak Velocity 88.0 cm/s FINDINGS Left Ventricle Left ventricle is normal in size. LV systolic function is normal with EF 55 to 60%. No regional wall motion abnormalities are seen. Right Ventricle Normal in size and function. Right Atrium Normal in size Left Atrium Normal in size Mitral Valve Structurally normal mitral valve.Trace mitral regurgitation. Aortic Valve Structurally normal aortic valve. Trace aortic regurgitation. Tricuspid Valve Insufficient TR jet to calculate RVSP Pulmonic Valve Not well visualized Pericardium Normal Aorta Normal in size IVC Appears to be dilated CONCLUSIONS LV systolic function is normal with EF of 55-60% Trace mitral regurgitation Trace aortic regurgitation IVC appears to be dilated. No comparison studies seen Ramiro Crocker MD (Electronically Signed) Final Date: 15 April 2024 15:50 S
--- NOTE | 2024-04-15 12:30 | CT_ITS ---
WS: [id number] CT CHEST, ABDOMEN AND PELVIS WITH CONTRAST HISTORY: Poor appetite, loss of weight TECHNIQUE: Contiguous 5 mm axial imaging performed through the chest, abdomen and pelvis with IV cont rast, oral contrast has not been provided. Coronal and sagittal reformats chest. Coronal and sagittal reformats through the abdomen and pelvis. All CT scans at [facility] use at least one of the se dose optimization techniques: automated exposure control; mA and/or kV adjustment per patient size (includes targeted exams where dose is matched to clinical indication); or iterative reconstruction. CONTRAST: Omnipaque 350; 100 mL IV. DLP: 593.13 mGy.cm COMPARISON: 06/06/[address]: Lungs are clear. Normal size heart. No pericardial or pleural effusions. No mediastinal or hilar adenopathy. Normal aorta and pulmonary artery. Small hiatal hernia. Abdomen CT: Liver is mildly enlarged. Periportal edema. No bile duct dilatation. Gallbladder is negat naren. Normal spleen, pancreas and adrenal glands. Common bile duct is normal. Normal kidneys with no o bstruction. Normal aorta. Nondistended stomach. No small bowel obstruction. Mild diffuse constipation. The appendix is partiall y visualized and appears normal. No ischemic changes. No diverticulitis. Pelvic CT: Urinary bladder is only minimally distended. There is a small amount of free fluid in the pelvis. No adenopathy. Mild anterior wedging of T12. CT/CT chest abdpel w/*[id number] IMPRESSION: 1. Small amount of free fluid in the pelvis is abnormal in a male patient. The etiology of this fluid has not been determined. 2. No ischemic changes are noted within the GI tract. 3. Mild periportal edema. This can be seen with aggressive IV fluid hydration and hepatitis. 4. No bile duct dilatation. 5. No pneumonia. 6. No adenopathy in the chest, abdomen or pelvis.
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
[2024-04-15 12:51] LABS: D Dimer 0.34 ug/mLFEU (0-0.59)
[2024-04-15 13:20] LABS: HIV 1 & 2 Antibody Non-Reactive (Non-Reactiv); HIV 1 & 2 Antigen Non-Reactive (Non-Reactiv)
[2024-04-15 13:23] LABS: Iron 91 ug/dL (59-158); Percent Saturation 47.6 % (20-50); Total Iron Binding Capacity 191 mcg/dl; Unsaturated Iron Binding 100 ug/dL (112-347)
[2024-04-15 13:29] LABS: Hepatitis A Antibody IgM Non-Reactive (Nonreactive); Hepatitis B Core AB, Total Non-Reactive (Nonreactive); Hepatitis B Surface AB 271.6 (11.5-1000); Hepatitis B Surface Antigen Non-Reactive (Nonreactive); Hepatitis C Virus Antibody Non-Reactive (Nonreactive)
[2024-04-15 13:38] LABS: Vitamin B12 770 pg/mL (232-1245)
[2024-04-15 14:01] LABS: Estmated Average Glucose 85; Hemoglobin A1C 4.6 % (4.0-6.0)
[2024-04-15] MEDS: iohexol 350 mg/mL 500 mL Btl (per mL) IV (14:05)
[2024-04-15 14:07] LABS: Amphetamines Screen Urine Negative (Negative); Barbiturates Screen Urine Negative (Negative); Benzodiazepines Screen Urine Positive (Negative); Cocaine Screen Urine Negative (Negative); Opiate Screen Urine Negative (Negative); PCP Screen Urine Negative (Negative); THC Screen Urine Positive (Negative)
--- NOTE | 2024-04-15 14:43 | ECG_ITS ---
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 Measurements Intervals [place] Rate: 46 P: 1 [place]: 167 QRS: 81 QRSD: 90 T: 52 QT: 434 QTc: 380 Interpretive Statements SINUS BRADYCARDIA VOLTAGE CRITERIA FOR LVH [MEETS CRITERIA IN ONE OF: R(aVL), S(V1), R(V5), R(V5/V6)+S(V1)] Compared to ECG 04/15/2024 10:47:48 ST (T wave) deviation no longer present Electronically Signed On 04-15-2024 17:45:13 CDT by Yennifer Sanchez M.D. [id number]
--- NOTE | 2024-04-15 14:49 | PC.NURSE ---
Addendum entered by Avi Simmons RN 04/15/24 15:19: Patient's home medications were counted alongside Salty Aranda.The Lamotrigine, Divalproex, and Oxcarbazepin were all put in the patient's lock box. The Clobazam and Aripiprazolewere put in the Pyxis. Lamotrigine-16 Divalproex-0 Oxcarbazepin-0 Clobazam-110 Aripiprazole-4 Original Note: Counted Home medications with Avi Ugarte Lamotrigine - 16 Clobazam - 110 Aripiprazole - 4
[2024-04-15] MEDS: sodium chloride 0.9% 1,000 ML 100 ML IV (15:06)
[2024-04-15 15:54] LABS: Charge for UA Resulting for Rev
[2024-04-15 16:01] LABS: Bilirubin Urine Negative (Negative); Blood Urine Negative (Negative); Glucose Urine UA Negative (Normal); Ketones Urine Negative (Negative); Leukocyte Esterase Urine Negative (Negative); Nitrate Urine Negative (Negative); Protein Urine Negative (Negative); Urine Appearance Clear (CLEAR); Urine Color Yellow (Yellow)
[2024-04-15 16:10] LABS: Specific Gravity, Urine 1.056 (1.005-1.030)
[2024-04-15 16:16] LABS: Troponin 5 6HR 8.08 ng/L (0-15)
[2024-04-15] MEDS: enoxaparin 30 mg/0.3 mL Syringe SUBCUT (16:17)
[2024-04-15 16:21] LABS: Troponin 5 6HR Delta -2.92 ng/L (0-12)
[2024-04-15 16:25] LABS: Procalcitonin 0.03 ng/mL (0-0.5)
[2024-04-15] MEDS: divalproex DR 250 mg Tablet 750 MG PO (17:21)
[2024-04-15] MEDS: OXcarbazepine 300 mg Tablet 900 MG PO (17:22)
[2024-04-15] MEDS: CLOBAZAM 10 MG 25 EACH PO (17:22)
[2024-04-15] MEDS: famotidine 20 mg Tablet PO (17:22)
[2024-04-15] MEDS: lamoTRIgine 25 mg Tablet 75 MG PO (17:22)
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
[2024-04-15] MEDS: ARIPIPRAZOLE 15 MG 7.5 EACH PO (20:36)
--- NOTE | 2024-04-15 20:38 | ECG_ITS ---
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 Measurements Intervals [place] Rate: 50 P: 9 NV: 152 QRS: 84 QRSD: 83 T: 59 QT: 435 QTc: 398 Interpretive Statements SINUS BRADYCARDIA MINIMAL VOLTAGE CRITERIA FOR LVH, CONSIDER NORMAL VARIANT [MEETS CRITERIA IN ONE OF: R(aVL), S(V1), R(V5), R(V5/V6)+S(V1)] EARLY REPOLARIZATION [ST ELEVATION WITH NORMALLY INFLECTED T-WAVE] Compared to ECG 04/15/2024 14:57:52 Early repolarization now present Electronically Signed On 04-15-2024 22:38:08 CDT by Yennifer Sanchez M.D. [id number]
[2024-04-15] MEDS: ondansetron 2 mg/ML SDV 2 mL 4 MG IVP (20:56)
[2024-04-15 21:46] LABS: Troponin(5th) Baseline 7 ng/L (0-15)
[2024-04-15 23:47] LABS: Troponin 5 2HR 8.71 ng/L (0-15); Troponin 5 2HR Delta 1.71 ABS# (0-10)
[2024-04-16] VITALS (43 sets, daily range): BP systolic 76–140; BP diastolic 41–88; PULSE 43–72; RESP 3–25; TEMP 36.3–37; O2SAT 75–100; BMI 19.1
[2024-04-16] MEDS: DOPamine drip 400 MG/250 ML PREMIX 11.91 MG IV (00:01)
[2024-04-16] MEDS: sodium chloride 0.9% 1,000 ML 100 ML IV ×2 (01:25→13:18)
--- NOTE | 2024-04-16 02:38 | ECG_ITS ---
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 Measurements Intervals [place] Rate: 45 P: -3 FL: 140 QRS: 82 QRSD: 88 T: 54 QT: 458 QTc: 400 Interpretive Statements SINUS BRADYCARDIA EARLY REPOLARIZATION [ST ELEVATION WITH NORMALLY INFLECTED T-WAVE] Compared to ECG 04/15/2024 21:43:42 No significant changes Electronically Signed On 04-16-2024 14:56:28 CDT by Ramiro Crocker M.D. [id number]
[2024-04-16 03:07] LABS: Basophils % 0.1 %; Eosinophils % 0.5 %; Hematocrit 42.1 % (37-53); Lymphocytes # 3.1 10^3/uL (0.8-4.8); Mean Corpuscular HGB Conc 34.2 g/dL (30-55); Mean Corpuscular Hemoglobin 32.4 pg (27-33); Mean Corpuscular Volume 94.8 fl (82-101); Mean Platelet Volume 10.6 fL (7.4-10.4); Monocytes # 0.4 10^3/uL (0.2-0.9); Monocytes % 5.2 %; Neutrophils # 3.92 10^3/uL (1.8-7.7); Neutrophils % 52.9 %; Nucleated Red Blood Cells % 0 %; Platelet Count 215 10^3/cmm (157-399); Red Blood Count 4.44 10^6/uL (3.85-5.65); Red Cell Distribution Width 11.6 % (12.1-15.1); White Blood Count 7.43 10^3/uL (3.29-11.43)
[2024-04-16 03:27] LABS: Troponin 5 6HR 7.82 ng/L (0-15); Troponin 5 6HR Delta 0.82 ng/L (0-12)
[2024-04-16 03:32] LABS: Cholesterol 176 mg/dL (0-200); HDL Cholesterol 55 mg/dL (60-100); LDL Cholesterol Calculated 98 mg/dL (50-129); LDL HDL Ratio 1.78 RATIO (0.00-3.22); Magnesium 2.1 mg/dL (1.7-2.3); Triglycerides 114 mg/dL (0-150); VLDL Cholestrol Calculation 23 mg/dL (0-30)
[2024-04-16 03:33] LABS: Alanine Aminotransferase 14 U/L (0-41); Albumin Level 4.5 g/dL (3.5-5.2); Alkaline Phosphatase 52 U/L (40-130); Anion Gap 17.7 (5-19); Aspartate Amino Transferase 13 U/L (0-40); Blood Urea Nitrogen 8 mg/dL (6-20); Calcium 8.6 mg/dL (8.5-10.5); Carbon Dioxide 24 mmol/L (22-29); Chloride 105 mmol/L (98-107); Creatinine Clr Calc Pharmacy 174.0972; Globulin 2.3 g/dL (1.3-4.6); Glomerular Filtration Rate 157.1 mL/min (90-130); Glucose 112 mg/dL (65-115); Osmolality Calculated 295 mOsm/kg (285-295); Phosphorus 2.9 mg/dL (2.5-4.5); Potassium 3.7 mmol/L (3.5-5.1); Sodium 143 mmol/L (136-145); Total Bilirubin 0.5 mg/dL (0.15-1.2); Total Protein 6.8 g/dL (6.6-8.7)
[2024-04-16 03:35] LABS: Estmated Average Glucose 94; Hemoglobin A1C 4.9 % (4.0-6.0)
[2024-04-16 03:48] LABS: Folate Level 4.7 ng/mL (4.5-32.2)
[2024-04-16] MEDS: ondansetron 2 mg/ML SDV 2 mL 4 MG IVP ×2 (05:10→09:09)
--- NOTE | 2024-04-16 05:31 | PC.NURSE ---
Discussed variable PTT results with Dr. Dwyer, order received to hold heparin 4 hours and recheck PTT.
--- NOTE | 2024-04-16 05:42 | PC.NURSE ---
Following order from Dr. Dwyer for Dopamine drip, pt's blood pressure improved and medication not started. Later pt became more hypotensive (with MAP consistently in 50's) and dopamine started. Has been titrated according to protocol since. Pt has had intermittent nausea and vomiting, minimal amounts of clear emesis noted. Discussed with Dr. Dwyer and Sweetie frequency increased to q 6 PRN.
[2024-04-16] MEDS: doxycycline 100 mg Tablet PO ×2 (09:09→18:02)
[2024-04-16] MEDS: CLOBAZAM 10 MG 25 EACH PO ×2 (09:09→21:14)
[2024-04-16] MEDS: famotidine 20 mg Tablet PO ×2 (09:09→18:02)
[2024-04-16] MEDS: lamoTRIgine 25 mg Tablet 75 MG PO ×2 (09:09→21:12)
[2024-04-16] MEDS: divalproex DR 250 mg Tablet 750 MG PO ×2 (09:09→21:11)
[2024-04-16] MEDS: OXcarbazepine 300 mg Tablet 900 MG PO ×2 (09:09→21:12)
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
[2024-04-16] MEDS: enoxaparin 40 mg/0.4 mL Syringe SUBCUT (15:30)
[2024-04-16 16:14] LABS: Lyme AB Screen <0.90 index
--- NOTE | 2024-04-16 18:03 | PC.NURSE ---
4 meds on OCT ordered BID that are due at 1800 patient refused at this time stating I take them at 8 at home I do not want to take them before then
--- NOTE | 2024-04-16 19:35 | P.PN_ITS ---
Subjective 2 Subjective: Last night heart rate dipped down to 30s started on dopamine this morning he was weaned off of dopamine given IV fluid feeling much better though still nauseated and not like to eat. Heart rate has good variability anywhere from 40s to 80s to 90. Denies chest pain but feels dizzy Vitals/I&O/Wt Last Vital Signs Temp 98.6 F 04/16/24 11:00 Pulse 50 L 04/16/24 18:30 Resp 7 L 04/16/24 18:30 BP 96/62 04/16/24 18:30 Pulse Ox 100 04/16/24 18:30 O2 Del Method Room Air 04/16/24 18:30 04/16/24 04/16/24 04/16/24 06:59 14:59 22:59 Intake Total 1033.443 / 2273.443 1404.305 / 1404.305 240 / 1644.305 Output Total 1700 / 2450 1250 / 1250 600 / 1850 Balance -666.557 / -176.557 154.305 / 154.305 -360 / -205.695 Weight last 48 hrs Weight 133 lb 6.075 oz Weight 136 lb 6.4 oz Weight 138 lb 14.259 oz Weight 140 lb Physical Exam 2 Const: OTHER: GENERAL: Patient is awake and oriented x3. Patient laying in the bed feeling sleepy when weak HEART: Regular S1 and S2. No murmur, rub or gallop. LUNGS: Clear to auscultate bilaterally. ABDOMEN: Soft, nontender and nondistended. Positive bowel sounds. No guarding, rebound or tenderness. CENTRAL NERVOUS SYSTEM: Grossly nonfocal. EXTREMITIES: Lower extremities without edema bilaterally. Data 04/16/24 02:41 04/16/24 02:41 Micro: Microbiology 04/15/24 13:19 Blood Culture - Preliminary Blood NEGATIVE TO DATE 04/15/24 13:15 Blood Culture - Preliminary Blood NEGATIVE TO DATE 04/15/24 13:44 Legionella Urinary Antigen - Final Unknown Source A&P Assessment and plan (1) Symptomatic bradycardia: Could be multifactorial including, seizure medicines, high vagal tone, electrolyte imbalance, hypothyroidism autonomic dysfunction, patient denies tick bite or Lyme disease. patient appeared to have good variability, encourage increase intake. Will obtain echocardiogram, continue to monitor on telemetry. Today's visit, patient heart rate has good variability however he dips down into 30s to 40s during sleep nap no intermittent heart block noted. Echocardiogram showed structurally normal heart, could be underlying sick sinus syndrome or effect of medications, could be high vagal tone. For now there is no indication for pacemaker plan is to improve appetite increase intake, give IV fluid to stabilize hydration. Will monitor him until tomorrow if there is no significant symptomatic bradycardia and patient stabilize will discharge on monitor for 30 days to follow-up in the clinic (2) History of seizure disorder: Medicine will be adjusted as per medicine Attestations 2 Medical Necessity Statement*: Patient require continuation hospitalization for above defined care Coding Level of Care Code Acute Code for Chg Fwd Diagnoses Symptomatic bradycardia R00.1 History of seizure disorder Z86.69
--- NOTE | 2024-04-16 20:00 | PC.NURSE ---
Confirmed with patient that he wants to take medicines scheduled for 1800 at 2054.
[2024-04-16] MEDS: ARIPIPRAZOLE 15 MG 7.5 EACH PO (21:13)
[2024-04-17] VITALS (14 sets, daily range): BP systolic 87–118; BP diastolic 52–70; PULSE 48–74; RESP 13–19; TEMP 36.8; O2SAT 70–100; BMI 19.9
[2024-04-17] MEDS: sodium chloride 0.9% 1,000 ML 100 ML IV (02:56)
[2024-04-17] MEDS: OXcarbazepine 300 mg Tablet 900 MG PO (08:37)
[2024-04-17] MEDS: lamoTRIgine 25 mg Tablet 75 MG PO (08:37)
[2024-04-17] MEDS: CLOBAZAM 10 MG 25 EACH PO (08:37)
[2024-04-17] MEDS: doxycycline 100 mg Tablet PO (08:37)
[2024-04-17] MEDS: famotidine 20 mg Tablet PO (08:37)
[2024-04-17] MEDS: divalproex DR 250 mg Tablet 750 MG PO (08:37)
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
--- NOTE | 2024-04-17 11:32 | P.PN_ITS ---
Subjective 2 Subjective: Mostly patient heart rate stays into 80s he is stable vital bajwa. He denies any complaint feeling much better. Vitals/I&O/Wt Last Vital Signs Temp 98.2 F 04/17/24 08:00 Pulse 48 L 04/17/24 08:00 Resp 16 04/17/24 08:00 BP 103/56 04/17/24 08:00 Pulse Ox 94 04/17/24 08:00 O2 Del Method Room Air 04/17/24 08:00 04/16/24 04/17/24 04/17/24 22:59 06:59 14:59 Intake Total 460 / 1864.305 240 / 240 Output Total 600 / 1850 600 / 2450 Balance -140 / 14.305 -600 / -585.695 240 / 240 Weight last 48 hrs Weight 138 lb 14.259 oz Weight 133 lb 6.075 oz Weight 136 lb 6.4 oz Weight 138 lb 14.259 oz Physical Exam 2 Const: OTHER: GENERAL: Patient is awake and oriented x3. Patient laying in the bed feeling sleepy when weak HEART: Regular S1 and S2. No murmur, rub or gallop. LUNGS: Clear to auscultate bilaterally. ABDOMEN: Soft, nontender and nondistended. Positive bowel sounds. No guarding, rebound or tenderness. CENTRAL NERVOUS SYSTEM: Grossly nonfocal. EXTREMITIES: Lower extremities without edema bilaterally. Data 04/16/24 02:41 04/16/24 02:41 Micro: Microbiology 04/15/24 13:19 Blood Culture - Preliminary Blood NEGATIVE TO DATE 04/15/24 13:15 Blood Culture - Preliminary Blood NEGATIVE TO DATE A&P Assessment and plan (1) Symptomatic bradycardia: Could be multifactorial including, seizure medicines, high vagal tone, electrolyte imbalance, hypothyroidism autonomic dysfunction, patient denies tick bite or Lyme disease. patient appeared to have good variability, encourage increase intake. Will obtain echocardiogram, continue to monitor on telemetry. Today's visit, patient heart rate has good variability however he dips down into 30s to 40s during sleep nap no intermittent heart block noted. Echocardiogram showed structurally normal heart, could be underlying sick sinus syndrome or effect of medications, could be high vagal tone. For now there is no indication for pacemaker plan is to improve appetite increase intake, give IV fluid to stabilize hydration. Will monitor him until tomorrow if there is no significant symptomatic bradycardia and patient stabilize will discharge on monitor for 30 days to follow-up in the clinic On today's visit dated 04/17/2024 patient bradycardia has improved, will discharge patient on event monitor and follow-up with me in 6 to 8 weeks. Patient need to improve caloric intake hydration. Advised to increase salt intake. Structurally does not have any cardiac problem, would like to rule out intermittent heart block with event monitor though so far on telemetry patient has not shown such trend. From a cardiovascular perspective patient can be discharged home. He has been given, advice not to drive or ride his bicycle if he feels dizzy and noticed that heart rate is slow (2) History of seizure disorder: Medicine will be adjusted as per medicine Attestations 2 Medical Necessity Statement*: From a cardiac perspective patient can be discharged Coding Level of Care Code Acute Code for g Fwd Diagnoses Symptomatic bradycardia R00.1 History of seizure disorder Z86.69
--- NOTE | 2024-04-17 14:00 | PC.NURSE ---
Patient was discharged today with event monitor in place and instructions on the device. Patient's IVs were discontinued and all referral appointments were made. New medication was sent to pharmacy to be picked up.
[2024-04-19 23:10] LABS: RMSF IGG NOT DETECTED; RMSF IGM NOT DETECTED
[2024-04-21 09:54] LABS: Ehrlichia Ab Igg <1:64
[2024-04-21 09:54] LABS: E. Chaffeensis AB IGG <1:64; E. Chaffeensis AB IGM <1:20
[2024-04-22 06:45] LABS: Histoplasma Antigen (Quant) NONE DETECTED; Histoplasma Antigen Interpreta NEGATIVE; Histoplasma Antigen Specimen SERUM
[2024-04-22 07:25] LABS: Clobazam Level 230 ng/mL; Desmethylclobazam Level 900 ng/mL
[2024-04-24 19:00] LABS: Coccidioides AB CF Serum <1:2
[2024-04-24 23:23] LABS: Interpretation NOT DETECTED
== END 2024-04-17 13:34 | disposition home or self-care (01) | DRG 310 ==
LOC: ER 12:46 → ICU 12:59
PROVIDERS: Family Medicine; Admitting Provider Student in an Organized Health Care Education/Training Program; Emergency Provider Family Medicine; PCP Family Medicine; Visit Provider Student in an Organized Health Care Education/Training Program
DX: R00.1 Bradycardia, unspecified (principal); F17.290 Nicotine dependence, other tobacco product, uncomplicated; R63.0 Anorexia; Z68.20 Body mass index [BMI] 20.0-20.9, adult; F31.9 Bipolar disorder, unspecified; F15.11 Other stimulant abuse, in remission; F12.90 Cannabis use, unspecified, uncomplicated; G40.909 Epilepsy, unspecified, not intractable, without status epilepticus; R21 Rash and other nonspecific skin eruption
CPT/HCPCS: 36415; 71045; 71260; 74177; 80053; 80061; 80164; 80175; 80299; 80306; 81003; 81015; 82607; 82746; 83036; 83540; 83550; 83735; 84100; 84145; 84443; 84484; 85025; 85378; 86618; 86635; 86666; 86705; 86706; 86709; 86757; 86803; 87040; 87340; 87385; 87449; 87798; 87806; 93005; 93306; 94664; 96360; 96372; 99285; J1265; J1650; J2405; J7030

== ENCOUNTER 2024-05-01 00:27 | Inpatient (IN) | payer MEDICAID, SELFPAY ==
[2023-01-22 16:55] VITALS: BP 120/70; BMI 30.9
[2024-05-01] VITALS (16 sets, daily range): BP systolic 96–148; BP diastolic 61–103; PULSE 58–106; RESP 13–23; TEMP 36.1–37.2; O2SAT 85–99
--- NOTE | 2024-05-01 00:48 | ED.C_ITS ---
HPI - Psych 2 General: Chief Complaint: Psychiatric Symptoms Stated Complaint: ETOH, SI Time Seen by Provider: 05/01/24 00:34 History of Present Illness: Patient brought in by [facility] for for suicidal ideation. Patient denies drinking and is his friends will give him a ride home so he called 911 to get a ride home when he get another ride he started saying he was suicidal and just wanted to . . He did not state a plan or method just that he wanted to . Related Data Home Medications Medication Instructions Recorded Confirmed lamotrigine 25 mg tablet 75 mg PO BID 03/26/24 04/15/24 clobazam 10 mg tablet (Onfi) 25 mg PO BID 04/15/24 04/15/24 Previous Rx's Medication Instructions Recorded aripiprazole 15 mg tablet 7.5 mg (1/2 x 15 mg) PO BEDTIME 05/15/23 #60 tabs carbamide peroxide 6.5 % ear drops 10 drp otic (ear) Q12H 4 days #15 03/17/24 (Debrox) mL divalproex 250 mg tablet,delayed 750 mg (3 x 250 mg) PO BID 30 days 04/17/24 release (Depakote) #90 tabs oxcarbazepine 600 mg tablet 900 mg (1.5 x 600 mg) PO BID 30 04/17/24 days #60 tabs Allergies Allergy/AdvReac Type Severity Reaction Status Date / Time No Known Allergies Allergy Verified 03/26/24 09:47 Review of Systems 2 General: Reports: 10 or more systems reviewed and unremarkable except in HPI and below PFSH ED 2 PFSH: Medical History History of seizure disorder Suicidal ideation Acute psychosis Elevated lactic acid level Rhabdomyolysis Leukocytosis Acute encephalopathy Seizures Bipolar disorder Psychiatric care Seizure Family History Grandmother Hyperlipidemia Hypertension Mother Lupus Other Cancer Stroke Denies family history of Diabetes CAD (coronary artery disease) Clotting disorder Psychiatric illness Chronic kidney disease (CKD) Anesthesia complication Bleeding disorder Lung disease Social History Smoking and tobacco/nicotine status: current every day tobacco/nicotine user (vape/marijuana) e-cigarettes E-Cigarette Details: vaporizer device E-cig/vape details: rare but if someone has some in a flavor i like. Second hand smoke exposure: Yes Alcohol intake: former Substance/Drug Use: current Substance/Drug use frequency: daily Adopted: No Caregiver/support person: No Lives independently: Yes Household members: none Housing: Apartment Marital status: Single Number of children: 0 Highest education level completed: High School Graduate service: No Current occupational status: unemployed Current occupational exposures/hazards: No Pets and animals: No Leisure activites: exercise, games and other Leisure activities details: video games, cards, bike rides Sexually active: No Current gender identity: Male Veronica/Episcopalian: Restoration Special veronica needs: No Agree to transfusion: Yes Physical Exam 2 Const: COMMON NORMALS: no acute distress, average body habitus, healthy appearing, alert and well nourished Neck/C-Spine: COMMON NORMALS: no JVD Chest: COMMONS NORMALS: normal inspection of the chest and normal palpation of entire chest wall Resp: COMMON NORMALS: normal respiratory effort, No retractions, No use of accessory muscles and clear to auscultation bilaterally AUSCULTATION: clear to auscultation bilaterally Cardio: COMMON NORMALS: no JVD, regular rate, regular rhythm, S1 normal heart sound present, S2 normal heart sound present, No gallops present (Cardio), No clicks present (Cardio), No murmurs present (Cardio) and No rub (Cardio) R ATE: regular rate RHYTHM: regular rhythm HEART SOUNDS: S1 normal heart sound present and S2 normal heart sound present GI: COMMON NORMALS: Normal to inspection, nondistended, normoactive bowel sounds present, Soft to palpation, non-tender, No hepatosplenomegaly present and no masses PALPATION: Yes Soft to palpation and Yes No hepatosplenomegaly present Neuro: SENSORIUM/ORIENTATION: Yes alert Course 2 Vital Signs: Vital signs: Vital Signs Temperature 97.0 F L 05/01/24 00:27 Pulse Rate 72 05/01/24 01:20 Respiratory Rate 16 05/01/24 01:20 Blood Pressure 143/103 05/01/24 01:20 Pulse Oximetry 96 05/01/24 01:20 Oxygen Delivery Me thod Room Air 05/01/24 01:20 MDM - Psych Medical Decision Making Please put the patient with affidavit stating he was suicidal and making suicidal ideations and threats. During the patient's stay in the ER he became irritated and we would not let him leave because he wanted to go get more alcohol. Patient will be placed on 96-hour hold. Dr. Singh was consulted we will place patient in MPU for further evaluation treatment. Differential Diagnosis Likely suicidal ideation Medical Records I reviewed the patient's medical records. Lab Data I reviewed the patient's lab results. 05/01/24 00:44 05/01/24 00:44 Laboratory Results WBC 8.95 10^3/uL (3.29-11.43) 05/01/24 00:44 RBC 4.44 10^6/uL (3.85-5.65) 05/01/24 00:44 Hgb 14.60 g/dL (11.27-16.99) 05/01/24 00:44 Hct 41.9 % (37-53) 05/01/24 00:44 MCV 94.4 fl (82-101) 05/01/24 00:44 MCH 32.9 pg (27-33) 05/01/24 00:44 MCHC 34.8 g/dL (30-55) 05/01/24 00:44 RDW 11.9 % (12.1-15.1) L 05/01/24 00:44 Plt Count 231 10^3/cmm (157-399) 05/01/24 00:44 MPV 9.5 fL (7.4-10.4) 05/01/24 00:44 Neut % (Auto) 60.8 % 05/01/24 00:44 Lymph % (Auto) 34.1 % 05/01/24 00:44 [place] % (Auto) 4.6 % 05/01/24 00:44 Eos % (Auto) 0.0 % 05/01/24 00:44 Baso % (Auto) 0.1 % 05/01/24 00:44 Neut # (Auto) 5.44 10^3/uL (1.8-7.7) 05/01/24 00:44 Lymph # (Auto) 3.1 10^3/uL (0.8-4.8) 05/01/24 00:44 [place] # (Auto) 0.4 10^3/uL (0.2-0.9) 05/01/24 00:44 Eos # (Auto) 0.0 10^3/uL (0.0-0.8) 05/01/24 00:44 Baso # (Auto) 0.0 10^3/uL (0.0-0.1) 05/01/24 00:44 Nucleated RBC % (auto) 0 % 05/01/24 00:44 Nucleated RBCs # 0.0 /100WBC 05/01/24 00:44 Sodium 142 mmol/L (136-145) 05/01/24 00:44 Potassium 4.1 mmol/L (3.5-5.1) 05/01/24 00:44 Chloride 102 mmol/L (98-107) 05/01/24 00:44 Carbon Dioxide 26 mmol/L (22-29) 05/01/24 00:44 Anion Gap 18.1 (5-19) 05/01/24 00:44 BUN 8 mg/dL (6-20) 05/01/24 00:44 Creatinine 0.7 mg/dL (0.7-1.2) 05/01/24 00:44 GFR Calculation 131.5 mL/min (90-130) H 05/01/24 00:44 Glucose 84 mg/dL (65-115) 05/01/24 00:44 Calculated Osmolality 292 mOsm/kg (285-295) 05/01/24 00:44 Calcium 9.1 mg/dL (8.5-10.5) 05/01/24 00:44 Total Bilirubin 0.2 mg/dL (0.15-1.2) 05/01/24 00:44 AST 25 U/L (0-40) 05/01/24 00:44 ALT 17 U/L (0-41) 05/01/24 00:44 Alkaline Phosphatase 58 U/L (40-130) 05/01/24 00:44 Total Protein 7.2 g/dL (6.6-8.7) 05/01/24 00:44 Albumin 4.9 g/dL (3.5-5.2) 05/01/24 00:44 Globulin 2.3 g/dL (1.3-4.6) 05/01/24 00:44 Salicylates < 0.3 mg/dL (3-10) L 05/01/24 00:44 Acetaminophen < 5.0 ug/mL (10-30) L 05/01/24 00:44 Ethyl Alcohol 271 mg/dL (0-10) H 05/01/24 00:44 No radiology studies performed this visit Discharge Plan Discharge Patient Disposition: Admitted As Inpatient Clinical Impression: Suicidal ideation Alcohol intoxication Qualifiers: Complication of substance-induced condition: uncomplicated Qualified Code(s): F 10.920 - Alcohol use, unspecified with intoxication, uncomplicated Condition: Stable Coding Level of Care Code ED Mammalogist for Neda Chambers
[2024-05-01 00:51] LABS: Basophils % 0.1 %; Hematocrit 41.9 % (37-53); Lymphocytes # 3.1 10^3/uL (0.8-4.8); Lymphocytes % 34.1 %; Mean Corpuscular HGB Conc 34.8 g/dL (30-55); Mean Corpuscular Hemoglobin 32.9 pg (27-33); Mean Corpuscular Volume 94.4 fl (82-101); Mean Platelet Volume 9.5 fL (7.4-10.4); Monocytes # 0.4 10^3/uL (0.2-0.9); Monocytes % 4.6 %; Neutrophils # 5.44 10^3/uL (1.8-7.7); Neutrophils % 60.8 %; Nucleated Red Blood Cells % 0 %; Platelet Count 231 10^3/cmm (157-399); Red Blood Count 4.44 10^6/uL (3.85-5.65); Red Cell Distribution Width 11.9 % (12.1-15.1); White Blood Count 8.95 10^3/uL (3.29-11.43)
[2024-05-01 01:09] LABS: Alanine Aminotransferase 17 U/L (0-41); Albumin Level 4.9 g/dL (3.5-5.2); Alcohol Level 271 mg/dL (0-10); Alkaline Phosphatase 58 U/L (40-130); Anion Gap 18.1 (5-19); Aspartate Amino Transferase 25 U/L (0-40); Blood Urea Nitrogen 8 mg/dL (6-20); Calcium 9.1 mg/dL (8.5-10.5); Carbon Dioxide 26 mmol/L (22-29); Chloride 102 mmol/L (98-107); Creatinine Clr Calc Pharmacy 149.6613; Globulin 2.3 g/dL (1.3-4.6); Glomerular Filtration Rate 131.5 mL/min (90-130); Glucose 84 mg/dL (65-115); Osmolality Calculated 292 mOsm/kg (285-295); Potassium 4.1 mmol/L (3.5-5.1); Sodium 142 mmol/L (136-145); Total Bilirubin 0.2 mg/dL (0.15-1.2); Total Protein 7.2 g/dL (6.6-8.7)
[2024-05-01 01:19] LABS: Acetaminophen < 5.0 ug/mL (10-30); Salicylate < 0.3 mg/dL (3-10)
--- NOTE | 2024-05-01 03:49 | PC.NURSE ---
96 Hour Involuntary Patient Hold Rights have been read to the patient and a copy of the same has been given to him. Patient verbalizes understanding of Rights. Irrigator Valve Pipe Aron Yousif was present at bedside at the time of presentation of Rights.
[2024-05-01] MEDS: thiamine 100 mg Tablet PO (08:11)
[2024-05-01] MEDS: folic acid 1 mg Tablet PO (08:11)
[2024-05-01] MEDS: acetaminophen 325 mg Tablet 650 MG PO (08:11)
[2024-05-01] MEDS: multivitamin therapeutic Tablet 1 TAB PO (08:11)
--- NOTE | 2024-05-01 12:21 | PC.NURSE ---
ATTEMPTED TO GIVE PT OXYCARBAZAPINE AM DOSE AND PT REFUSED TWICE STATING I'VE BEEN DRINKING AND CAN'T TAKE THAT RIGHT NOW. PT EDUCATION PROVIDED BUT CONTINUES TO REFUSE MEDICATIONS. SUPPORT VOICED.
--- NOTE | 2024-05-01 16:24 | P.NPUHP_ITS ---
Providers/Chief Complaint 2 Admitting Physician: Darnell Singh MD Chief Complaint: ETOH, SI HPI NPU History of Present Illness Guido Dill is a 33 year old male who presents to the emergency department with the following report: Chief Complaint: Psychiatric Symptoms Stated Complaint: ETOH, SI Time Seen by Provider: 05/01/24 00:34 History of Present Illness: Patient brought in by [facility] for for suicidal ideation. Patient denies drinking and is his friends will give him a ride home so he called 911 to get a ride home when he get another ride he started saying he was suicidal and just wanted to . . He did not state a plan or method just that he wanted to . He was admitted to the neuropsychiatric unit for definitive treatment of those issues. He is known to the neuropsychiatric unit from inpatient services the last of which was in 2021 and through crisis stabilization. He has a history of alcohol use disorder and seizures but is unclear how these 2 are connected. An excerpt of his last inpatient hospitalization is included below for context and the fact that he denies substantive changes. He presents reporting that he has not been doing outpatient psychiatric services but getting his psychiatric medications through his PCP. He also takes multiple medications that double as psychiatric medications/mood stabilizers and antiseizure medications. He reports that he is fine and has no psychiatric concerns and that he found himself out walking and wanted a ride home. So he called the police with the goal of hopefully getting a ride home with good the interaction did not go as planned and he ended up making some comment about wanting to which she reports is not the case but he did say it and next thing he knew he was in the neuropsychiatric unit on a 96-hour hold. He denied any this being true, denied any current problems and reports he really just wants to go home and just needed a ride. We discussed the risk benefits and alternatives of continuing all of his current medications and getting collateral information and he understood and agreed to proceed as documented in this note. Per his 06/29/2022 [facility] inpatient psychiatric discharge summary: Diagnoses at Discharge Discharge Diagnosis (1) Seizure: Status: Acute (2) Altered mental status: Status: Resolved (3) Psychosis: Status: Resolved (4) Cluster A personality disorder: Status: Acute Reason for Visit Reason for Visit: SUICIDAL IDEATIONS Brief History: History of Present Illness Guido Dill is a 32 year old male who presented to the emergency department with the following report: Chief Complaint: Psychiatric Symptoms Stated Complaint: SUICIDAL IDEATIONS Time Seen by Provider: 06/25/22 16:52 Limitations: other (Mental state) History of Present Illness: Mr. Dill is a 32-year-old gentleman with history of psychiatric disorder and seizures presenting to the emergency department due to suicidal ideation and psychiatric symptoms. History is somewhat limited as the patient appears quite anxious and frantic at times. He does endorse suicidal ideation with plan to cut himself though this has been going on for some time. Apparently he was [facility] and released and was trying to get back into [facility] to see his friends. He has quite focused on seeing his friends and appears to be fearful of not being able to see his friends that he made in [facility]. He did report that he would admit a crimes to get back into [facility]. He has difficulty articulating why he feels so strongly about this. History is otherwise limited by current psychiatric state. The patient was admitted to the neuropsychiatric unit for definitive treatment of those issues. He is not currently taking any psychiatric medications. He presents today reporting he does not know why he presents on a 96 hour hold. He has been psychiatrically hospitalized 5 times but could not recall the first time he was hospitalized, has received outpatient services when he was younger but not recently, and has been on some psychiatric medications. He reports vaping and using nicotine pouches, alcohol occasionally, marijuana daily since he was 16 years old, and reports illicit drug use of ?everything except heroine?. He has never had drug and alcohol treatment but has a DUI from when he was 18 years old though no other drug and alcohol related charges. He had been in [facility] for around 2 weeks for breaking and entering when he went to court and was told he was being released which he was after he had lunch. After he was released, he tried to pay his roommates gutierrez but was told it was a reinoso only gutierrez. He reports he wanted to go back into [facility] for a night as his friends were in there and he did not appreciate being lied to about the gutierrez. He was then taken to the hospital by the police. He denies having any knowledge of why he was previously psychiatrically hospitalized nor why he was put on psychiatric medication in the past such as Abilify, reporting that his ?doctor just prescribes medication?. He reports self-injurious behaviors which began later in life and the last time of which was before he went into [facility]. Psychiatric History: As above. Substance Abuse History: As above. Family History: He reports he does not know his father?s side of the family and denies mental health or addiction issues on his mother?s side of the family and denies suicide attempts or completions. 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 Psychosocial History: He reports his parents were not together when he was born and he is the only product of this union. He has a younger half brother and his father had one additional child. He described his childhood as harsh due to his stepfather being ?a hard man? and denies emotional, physical or sexual abuse. He denies CYS involvement. He reports he has had two people in front of him but denies any tomasz symptoms of PTSD. 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 He endorses being heterosexual with his longest relationship being a year. He has never been , does not have children, has not been in the and endorses being scientology. His longest employment history is a year and a half at [employer] and he is not currently employed. He currently lives in an apartment by himself. Legal History: He has been to [facility] twice, the longest time of which was 2 weeks. Medical History: He denies any known allergies to medications. He reports epilepsy which began at age 22 for which he is on medication. Hospital Course He slowly acclimated to the individual, group and milieu therapies provided. He presented with odd behavior including trying to get back into [facility]/visit. He was restarted on home medications including those procedures. He progressively improved after restarting his medications. He was able to contract for safety outside of the hospital prior to discharge and showed marked improvement. During the hospitalization, patient had routine laboratory studies which were within normal limits except for few outliers. Additionally there was a general medical evaluation which was also within normal limits and revealed no new acute processes. Discharge Summary: At the time of discharge, she denied psychosis or lethality. Mood and anxiety were well managed. Patient endorsed a plan to avoid all drugs of abuse and follow-up with the aftercare recommendations of the treatment team. Patient was evaluated and deemed to be absent credible lethality, and had achieved the maximum benefit from an inpatient hospitalization, so was discharged. Meds NPU Home Medications Medication Instructions Recorded Confirmed Last Taken Type aripiprazole 15 mg tablet 7.5 mg (1/2 x 15 mg) PO BEDTIME 05/15/23 05/01/24 04/14/24 Rx #60 tabs lamotrigine 25 mg tablet 75 mg PO BID 03/26/24 05/01/24 04/15/24 History clobazam 10 mg tablet (Onfi) 25 mg PO BID 04/15/24 05/01/24 Unknown History divalproex 250 mg tablet,delayed 750 mg (3 x 250 mg) PO BID 30 days 04/17/24 05/01/24 Unknown Rx release (Depakote) #90 tabs oxcarbazepine 600 mg tablet 900 mg (1.5 x 600 mg) PO BID 30 04/17/24 05/01/24 Unknown Rx days #60 tabs Allergies Allergy/AdvReac Type Severity Reaction Status Date / Time No Known Allergies Allergy Verified 03/26/24 09:47 PFSH NPU 2 PFSH: Medical History History of seizure disorder Suicidal ideation Acute psychosis Elevated lactic acid level Rhabdomyolysis Leukocytosis Acute encephalopathy Seizures Bipolar disorder Psychiatric care Seizure Family History Grandmother Hyperlipidemia Hypertension Mother Lupus Other Cancer Stroke Denies family history of Diabetes CAD (coronary artery disease) Clotting disorder Psychiatric illness Chronic kidney disease (CKD) Anesthesia complication Bleeding disorder Lung disease Social History Smoking and tobacco/nicotine status: current every day tobacco/nicotine user e- cigarettes E-Cigarette Details: vaporizer device E-cig/vape details: rare but if someone has some in a flavor i like. Second hand smoke exposure: Yes Alcohol intake: former Substance/Drug Use: current Substance/Drug use frequency: daily Adopted: No Caregiver/support person: No Lives independently: Yes Household members: none Housing: Apartment Marital status: Single Number of children: 0 Highest education level completed: High School Graduate service: No Current occupational status: unemployed Current occupational exposures/hazards: No Pets and animals: No Leisure activites: exercise, games and other Leisure activities details: video games, cards, bike rides Sexually active: No Current gender identity: Male Veronica/Anglican: Hindu Special veronica needs: No Agree to transfusion: Yes Mental Status Exam 2 MSE Comments: This is a thin well nourished, well developed male with hospital scrubs on with limited grooming and eye contact. No abnormal movements except for mild psychomotor retardation. Cooperative with exam in no acute distress. Speech was normal rate and volume. Mood described as I am fine, affect is slightly subdued. Thought process, organized. Thought content: patient denies suicidal or homicidal ideation, no delusions reported or noted and denies any auditory or visual hallucinations. Attention and concentration are intact and memory appeared mostly reliable but none were formally tested. He is alert and oriented times three. Insight and judgment are limited. Impulse control is limited versus impaired. Vitals/I&O/Wt Last Vital Signs Temp 98.8 F 05/01/24 12:00 Pulse 66 05/01/24 12:00 Resp 18 05/01/24 12:00 BP 148/83 05/01/24 12:00 Pulse Ox 98 05/01/24 12:00 O2 Del Method Room Air 05/01/24 05:24 Weight last 48 hrs Weight 63.503 kg Data NPU 05/01/24 00:44 05/01/24 00:44 A&P Assessment and plan (1) Seizure: (2) Altered mental status: (3) Psychosis: (4) Cluster A personality disorder: (5) Psychosis: (6) Bipolar disorder: (7) Cannabis use disorder: (8) Suicidal ideation: (9) Alcohol intoxication: Qualifiers: Complication of substance-induced condition: uncomplicated Qualified Code(s): F10.920 - Alcohol use, unspecified with intoxication, uncomplicated (10) Alcohol use disorder, severe, dependence: (11) Alcohol withdrawal: Plan This is a 33 year old man with a record of now 6 psychiatric hospitalizations with likely some psychosis versus mood dysregulation who presents after reportedly calling the police hoping to get a ride and that turned into him making statements of lethality and being put on a 96-hour hold now reporting that he is perfectly fine and just wants to go home and that there is no need for any changes. 1. Continue current medications 2. Continue every 15 minute observation. 3. Encourage individual, group and milieu therapies. 4. Obtain collateral information. 5. Encourage sober living treatment after discharge at the highest level of care to which he is willing to commit. Involuntary Hold Information 2 96 Hour Hold: 96 Hour Involuntary Admission: Yes 96 Hour Hold Ending Date: 05/07/24 96 Hour Hold Ending Time: 00:30 Attestations NPU 2 Medical Necessity Statement*: Inpatient hospitalization is medically necessary and the clinically appropriate intervention at this time. We will monitor medications and make changes as indicated. Patient will be in the hospital for over two midnights. Likely length of stay is 2-5 days. Coding Level of Care Code Acute Code for [facility] Diagnoses Seizure R56.9 Altered mental status R41.82 Psychosis F29 Cluster A personality disorder F60.89 Bipolar disorder F31.9 Cannabis use disorder F12.90 Suicidal ideation R45.851 Alcohol intoxication F10.920 Complication of substance-induced condition: uncomplicated Alcohol use disorder, severe, dependence F10.20 Alcohol withdrawal F10.939
[2024-05-01 20:45] LABS: Bilirubin Urine Negative (Negative); Blood Urine Negative (Negative); Glucose Urine UA Negative (Normal); Ketones Urine 1+ (Negative); Leukocyte Esterase Urine Negative (Negative); Nitrate Urine Negative (Negative); Protein Urine Negative (Negative); Specific Gravity, Urine 1.027 (1.005-1.030); Urine Appearance Clear (CLEAR); Urine Color Yellow (Yellow); pH Urine 7.5 (5-7)
[2024-05-01 20:50] LABS: Add Urine Microscopic? YES; Bacteria Urine None Seen /hpf; Hyaline Casts Urine 0.81 /lpf; RBC Urine 0-2 /hpf (0-2); Squamous Epithelial Cell Urine 0-5 /hpf (0-5); WBC Urine 0-5 /hpf (0-5)
[2024-05-01 20:54] LABS: Amphetamines Screen Urine Negative (Negative); Barbiturates Screen Urine Negative (Negative); Benzodiazepines Screen Urine Positive (Negative); Cocaine Screen Urine Negative (Negative); Opiate Screen Urine Negative (Negative); PCP Screen Urine Negative (Negative); THC Screen Urine Positive (Negative)
[2024-05-01 22:54] LABS: Glucose Point of Care 96 mg/dL (70-110)
[2024-05-01] MEDS: OXcarbazepine 300 mg Tablet 900 MG PO (22:54)
[2024-05-01] MEDS: divalproex DR 250 mg Tablet 750 MG PO (22:55)
--- NOTE | 2024-05-01 22:55 | PM.CCNAC ---
Critical Care Event Note The high probability of a clinically significant, sudden or life threatening deterioration of the patient's [] system(s) required my full and direct attention, intervention and personal management. The critical care time is as shown. This time is in addition to time spent performing any reported procedures but includes the following: [x] Data and vital sign review and interpretation [x] Patient assessment, examination and intervention [x] Documentation [x] Medication orders and management Critical Care Time Code activated: Yes Critical Care Time (min): 30 Additional information about critical care time: Rapid response was called as patient had a seizure and was postictal, lethargic -On my examination patient is alert oriented x 3, following commands, no facial droop no slurring of words, alert awake a bit drowsy, appears to be postictal -He reports a history of seizures, -He does have a blood alcohol level that is elevated -Discussed with nursing staff patient has not received his Onfi, his Depakote, his Trileptal tonight -Advised nursing staff to give him his medications -Will obtain blood work CBC, CMP, -Continue CIWA protocol -I need to replace we will give him 250 mL bolus -Will remain n.p.u. for an hour, if he remains seizure-free, will remove IV and keep him n.p.u. -If he does have recurrent seizures, then we will move him to MedSurg -Continue seizure precautions Coding Level of Care Code Acute Code for [facility]
[2024-05-01] MEDS: CLOBAZAM 10 MG 25 EACH PO (22:56)
--- NOTE | 2024-05-01 23:06 | ECG_ITS ---
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 Measurements Intervals [place] Rate: 62 P: 40 NE: 135 QRS: 83 QRSD: 90 T: 57 QT: 379 QTc: 386 Interpretive Statements SINUS RHYTHM VOLTAGE CRITERIA FOR LVH [MEETS CRITERIA IN ONE OF: R(aVL), S(V1), R(V5), R(V5/V6)+S(V1)] Compared to ECG 04/16/2024 00:54:21 Left ventricular hypertrophy now present Sinus bradycardia no longer present Early repolarization no longer present Electronically Signed On 05-02-2024 20:06:07 CDT by Yennifer Sanchez M.D. [email or web address]
[2024-05-01 23:30] LABS: Glucose Point of Care 112 mg/dL (70-110)
[2024-05-01] MEDS: LORazepam 2 mg/mL INJ 1 mL 1 MG IVP (23:33)
--- NOTE | 2024-05-01 23:38 | PC.NURSE ---
patient off unit to ICU
--- NOTE | 2024-05-01 23:39 | PC.NURSE ---
Patient given 1 mg Ativan IVP, 1 mg remaining of Ativan wasted with Jacques Ospina.
--- NOTE | 2024-05-01 23:45 | CTR_ITS ---
PROCEDURE INFORMATION: Exam: CT Head Without Contrast Exam date and time: 05/02/2024 1:23 AM Age: 33 years old Clinical indication: Patient HX: Witnessed seizure. History of seizure disorder. ; Additional info: Seizures TECHNIQUE: Imaging protocol: Computed tomography of the head without contrast. Radiation optimization: All CT scans at this facility use at least one of these dose optimization techniques: automated exposure control; mA and/or kV adjustment per patient size (includes targeted exams where dose is matched to clinical indication); or iterative reconstruction. COMPARISON: CT head wo con* [id number] 03/26/2024 2:15 PM RADIATION DOSE METRICS: Total DLP (mGy-cm): 1077.59 FINDINGS: Brain: No hemorrhage. No mass effect or midline shift. No significant white matter disease. Cerebral ventricles: No ventriculomegaly. Paranasal sinuses: Visualized sinuses are unremarkable. No fluid levels. Mastoid air cells: Visualized mastoid air cells are well aerated. Bones: Unremarkable. No acute fracture. Soft tissues: Unremarkable. CT/CT head wo con* [id number] IMPRESSION: No acute intracranial findings.
[2024-05-01] MEDS: levETIRAcetam 1,000 MG/100 ML PREMIX 400 MG IV (23:55)
[2024-05-02] VITALS (58 sets, daily range): BP systolic 88–134; BP diastolic 48–86; PULSE 52–104; RESP 10–30; TEMP 36.6–36.9; O2SAT 90–100; BMI 19.7; BMI 19.9
[2024-05-02 00:12] LABS: Thyroid Stimulating Hormone 1.62 uIU/mL (0.27-4.20)
--- NOTE | 2024-05-02 00:30 | PC.NURSE ---
Physician Communication Dr. Dwyer at bedside; order received for NS at 125 ml/hr IV continuous.
[2024-05-02] MEDS: sodium chloride 0.9% 250 ML 125 ML IV (00:36)
--- NOTE | 2024-05-02 00:44 | P.CONIM_ITS ---
Providers/Reason For Consult 2 Consulting Physician/Specialty*: Psychiatry Reason for Consult*: Breakthrough seizures Attending Physician: Darnell Singh MD History of Present Illness History of Present Illness Guido Dill is a 33 year old male with a past medical history of symptomatic bradycardia, history of seizures, alcoholic intoxication currently admitted to neuropsychiatric unit for suicidal ideation, rapid response was called for 2 separate seizures. His initial rapid response was for seizure-like episode during my examination was postictal, he had not received his seizure medications tonight including LP, Depakote, Trileptal, I instructed nursing staff to give him seizure medications. However patient had another seizure-like episode, lasting about a minute, he was postictal but responding to be in neuropsychiatric unit, advised nursing staff to move him to ICU, given 1 mg IV push Ativan, will give him a loading dose of Keppra, in addition to IV fluids, head CT ordered. Patient was seen in ICU he is alert to person, place not to time he follows commands, still a bit drowsy receiving IV fluids, has received Keppra loading dose. Denies any headache, blurry vision, no nausea, no vomiting, still a bit drowsy, no facial droop, no slurring of his words, no focal weakness, will continue to monitor in ICU Review of Systems 2 Const: Denies: fever(s) Card: Denies: chest pain GI: Denies: abdominal pain Medications/Allergies Home Medications Medication Instructions Recorded Confirmed Last Taken Type aripiprazole 15 mg tablet 7.5 mg (1/2 x 15 mg) PO BEDTIME 05/15/23 05/01/24 04/14/24 Rx #60 tabs lamotrigine 25 mg tablet 75 mg PO BID 03/26/24 05/01/24 04/15/24 History clobazam 10 mg tablet (Onfi) 25 mg PO BID 04/15/24 05/01/24 Unknown History divalproex 250 mg tablet,delayed 750 mg (3 x 250 mg) PO BID 30 days 04/17/24 05/01/24 Unknown Rx release (Depakote) #90 tabs oxcarbazepine 600 mg tablet 900 mg (1.5 x 600 mg) PO BID 30 04/17/24 05/01/24 Unknown Rx days #60 tabs Allergies Allergy/AdvReac Type Severity Reaction Status Date / Time No Known Allergies Allergy Verified 03/26/24 09:47 Current Medications Generic Name Dose Route Start Last Admin Trade Name Florecita PRN Reason Stop Dose Admin Acetaminophen 650 mg 05/01/24 05:21 05/01/24 08:11 Acetaminophen 325 Mg Tablet PO 650 mg Q4H PRN Administration MILD PAIN Carbamide Peroxide 10 drop 05/01/24 21:00 05/01/24 23:16 Carbamide Peroxide Otic 15 Ml Btl EAR-BOTH Not Given [facility] Divalproex Sodium 750 mg 05/01/24 21:00 05/01/24 22:[address] 250 Mg Tablet PO 750 mg 899,2099 SAVANA Administration Folic Acid 1 mg 05/01/24 09:00 05/01/24 08:11 Folic Acid 1 Mg Tablet PO 1 mg DAILY SAVANA Administration Sodium Chloride 250 mls @ 125 mls/hr 05/01/24 23:15 05/02/24 00:36 Sodium Chloride 0.9% IV 125 mls/hr .Q2H SAVANA Administration Multivitamins Therapeutic 1 tab 05/01/24 09:00 05/01/24 08:11 Multivitamin Therapeutic Tablet PO 1 tab DAILY SAVANA Administration Non-Formulary Medication 25 mg 05/01/24 21:00 05/01/24 22:56 Clobazam [Onfi] PO 25 mg 899,2099 SAVANA Administration Oxcarbazepine 900 mg 05/01/24 10:15 05/01/24 22:54 Oxcarbazepine 300 Mg Tablet PO 900 mg SAVANA Administration Thiamine Mononitrate 100 mg 05/01/24 09:00 05/01/24 08:11 Thiamine 100 Mg Tablet PO 100 mg DAILY SAVANA Administration PFSH Acute 2 PFSH: Medical History History of seizure disorder Suicidal ideation Acute psychosis Elevated lactic acid level Rhabdomyolysis Leukocytosis Acute encephalopathy Seizures Bipolar disorder Psychiatric care Seizure Family History Grandmother Hyperlipidemia Hypertension Mother Lupus Other Cancer Stroke Denies family history of Diabetes CAD (coronary artery disease) Clotting disorder Psychiatric illness Chronic kidney disease (CKD) Anesthesia complication Bleeding disorder Lung disease Social History Smoking and tobacco/nicotine status: current every day tobacco/nicotine user e- cigarettes E-Cigarette Details: vaporizer device E-cig/vape details: rare but if someone has some in a flavor i like. Second hand smoke exposure: Yes Alcohol intake: former Substance/Drug Use: current Substance/Drug use frequency: daily Adopted: No Caregiver/support person: No Lives independently: Yes Household members: none Housing: Apartment Marital status: Single Number of children: 0 Highest education level completed: High School Graduate service: No Current occupational status: unemployed Current occupational exposures/hazards: No Pets and animals: No Leisure activites: exercise, games and other Leisure activities details: video games, cards, bike rides Sexually active: No Current gender identity: Male Veronica/Buddhist: Jain Special veronica needs: No Agree to transfusion: Yes Vitals/I&O/Wt Last Vital Signs Temp 98 F 05/01/24 23:50 Pulse 56 L 05/02/24 00:30 Resp 19 H 05/02/24 00:30 BP 115/71 05/02/24 00:30 Pulse Ox 99 05/02/24 00:41 O2 Del Method Room Air 05/02/24 00:41 O2 Flow Rate 2.5 05/02/24 00:30 05/01/24 05/01/24 05/02/24 14:59 22:59 06:59 Intake Total 100 / 100 Balance 100 / 100 Weight last 48 hrs Weight 62.3 kg Weight 63.503 kg Physical Exam 2 Const: COMMON NORMALS: no acute distress GENERAL APPEARANCE: cooperative ORIENTATION/CONSCIOUSNESS: Yes awake, Yes oriented to person and Yes oriented to place; not oriented to time HENMT: COMMON NORMALS: normocephalic HEAD & SCALP: normocephalic Eye: COMMON NORMALS: Equal, round and reactive pupils present PUPIL: Yes Equal, round and reactive pupils present Neck/C-Spine: COMMON NORMALS: no JVD Resp: COMMON NORMALS: normal respiratory effort, No retractions, No use of accessory muscles and clear to auscultation bilaterally AUSCULTATION: clear to auscultation bilaterally Cardio: COMMON NORMALS: no JVD, regular rate, regular rhythm, S1 normal heart sound present and S2 normal heart sound present RATE: regular rate RHYTHM: regular rhythm HEART SOUNDS: S1 normal heart sound present and S2 normal heart sound present GI: COMMON NORMALS: Normal to inspection, nondistended, normoactive bowel sounds present, non-tender and no bruits Extremity: COMMON NORMALS: no calf tenderness and no pedal edema Neuro: SENSORIUM/ORIENTATION: Yes oriented to person, Yes oriented to place and No oriented to time OTHER: Can follow neurologic testing equal strength bilateral upper and lower extremities able to smile for me, cranial nerves II to XII grossly intact Psych: COMMON NORMALS: mental status grossly normal Data 05/01/24 00:44 05/01/24 00:44 A&P Assessment and plan (1) Breakthrough seizure: Plan ? Monitor in ICU ? Neurochecks ? N/A stroke scale ? Seizure precautions ? Continue IV fluids at 125 cc an hour ago ? Keppra 1000 mg IV once ? Continue p.o. seizure medications ? Will monitor closely # History of alcohol intoxication no tremors on examination, no significant evidence of withdrawal will place on [facility] protocol - CT head # Full code ? SCDs for DVT prophylaxis Consult Attestations 2 Medical Necessity Statement: Patient requires hospitalization, inpatient, greater than 2 midnights, for breakthrough seizures Diagnoses Breakthrough seizure G40.919
--- NOTE | 2024-05-02 01:03 | PC.NURSE ---
Clear liquid Diet Patient requested Dr. Gould. Order received from Dr. Dwyer for clear liquid diet.
--- NOTE | 2024-05-02 01:05 | PC.NURSE ---
Duplicate order, waste alert in Pyxis During a rapid response this nurse pulled the IM dose of Ativan already ordered by Dr Singh to give IM then Dr. Dwyer wanted it given IVP instead. So the pyxis shows the IM waste done but the IVP dose was scanned in [facility]. So now there is a waste showing due for the IVP. Pulled and did the waste on the IM dose but scanned the IVP dose. [facility] house registry rn was the witness. She is aware of the waste error/not error.
[2024-05-02] MEDS: sodium chloride 0.9% 250 ML (01:21)
[2024-05-02] MEDS: sodium chloride 0.9% 1,000 ML 125 ML IV (03:23)
--- NOTE | 2024-05-02 05:11 | XRR_ITS ---
PROCEDURE INFORMATION: Exam: XR Left Wrist Exam date and time: 05/02/2024 5:49 AM Age: 33 years old Clinical indication: Patient HX: C/O left wrist pain TECHNIQUE: Imaging protocol: Radiologic exam of the left wrist. Views: 1 or 2 views. COMPARISON: CR (UP EX, ) 03/21/2023 5:17 PM FINDINGS: Bones/joints: No acute fracture or dislocation. Soft tissues: There is dorsal soft tissue edema. XR/XR wrist LT 2V [id number] IMPRESSION: No acute fracture or dislocation.
[2024-05-02] MEDS: acetaminophen 325 mg Tablet 650 MG PO (05:24)
--- NOTE | 2024-05-02 05:29 | PC.NURSE ---
Wrist Pain Patient complaining of worsening left wrist pain with increasing pain upon movement. Dr. Dwyer notified; order received for wrist xray.
--- NOTE | 2024-05-02 06:24 | PC.NURSE ---
Rapid response called 05/01/24 @22:42 R/T patient appearing to be having a seizure. Patient was observed in bed nonresponsive, jerking violently, very diaphoretic and producing copious amounts of thick saliva. Patient was turned on his side and supported by NPU staff. Vital signs were obtained and continued to be monitored throughout patient?s ictal (Lasting approximately 2 minutes) and post ictal phases. A blood glucose was obtained which was WNL (96). Rapid response was called immediately and arrived on the NPU within minutes. The responders consisted of two RNs from the emergency department, one RN from ICU, a laboratory chief, a respiratory therapist, the Display Department Manager and DR. Dwyer. The patient was assessed by DR. Dwyer and orders were given and carried out. Patient was as this point responsive; able to tell us his name and
--- NOTE | 2024-05-02 06:30 | PC.NURSE ---
Aura Patient's sitter stated that patient thought he was going to have a seizure. Upon assessment, patient was diaphoretic while lying curled into a ball. When inquiring about why patient thought he would have a seizure, patient said he was experiencing an aura. He stated his auras consist of an intense feeling of de javu. Dr. Dwyer notified; order received for 1 mg ativan IVP once to be administered if seizure activity occurs. Approximately 5 minutes later, patient stated he thought he would be ok and that the feeling had passed. Patient educated to call for help if this feeling returned.
--- NOTE | 2024-05-02 06:58 | PC.NURSE ---
The second Rapid response was called 05/01/24 @23:24 R/T patient appearing to be having a second seizure. Patient was observed in bed nonresponsive and very diaphoretic. Patient was turned on his side and supported by NPU staff. Vital signs were obtained and continued to be monitored throughout patient?s ictal (Lasting approximately 1.5 minutes) and post ictal phases. A blood glucose was obtained which was WNL (107). Rapid response was called immediately and arrived on the NPU within minutes. The responders consisted of two RNs from the emergency department, one RN from ICU, a laboratory clerk, a respiratory therapist, the Sr. Logistics Analyst and DR. Dwyer. The patient was assessed by DR. Dwyer and orders were given and carried out. Patient was subsequently transferred to ICU. Patient was as this point responsive; able to tell us his name and
[2024-05-02] MEDS: OXcarbazepine 300 mg Tablet 900 MG PO ×2 (10:04→21:07)
[2024-05-02] MEDS: multivitamin therapeutic Tablet 1 TAB PO (10:04)
[2024-05-02] MEDS: folic acid 1 mg Tablet PO (10:04)
[2024-05-02] MEDS: divalproex DR 250 mg Tablet 750 MG PO ×2 (10:04→21:07)
[2024-05-02] MEDS: thiamine 100 mg Tablet PO (10:05)
[2024-05-02] MEDS: CLOBAZAM 10 MG 25 EACH PO ×2 (10:05→21:07)
[2024-05-02] MEDS: lamoTRIgine 25 mg Tablet 75 MG PO ×2 (11:19→21:07)
--- NOTE | 2024-05-02 12:43 | PC.NURSE ---
Transfer Note Patient transferred to NPU bed 150-1 from ICU via wheelchair. Handoff report given to IKER Chavez. Patient oriented to environment and equipment. Covering service notified. Orders reviewed and will continue to monitor. Patient medications and glasses transferred with patient and placed at nurses station. All IV's removed prior to patient going to NPU.
--- NOTE | 2024-05-02 13:20 | PC.NURSE ---
This nurse received report from IKER Trimble from ICU. initially, this nurse under the impression that patient had a seizure at 0956 . This was cleared up later; patient did not have a seizure, instead, patient was shaking out of frustration, saying he was having a seizure. Patient was transported by security to unit, arriving at about 1229. Patient was cooperative on admission, and tearful. Patient said that there was a misunderstanding, that he called EMS because he was experiencing an aura, indicating that a seizure was imminent. Patient said that he told them they would have a body because he would from the seizure, not that he was suicidal. Patient said he wants to help others but doesn't like getting taken advantage of. Patient said that suicide goes against his taoism, but that he has come to terms with . When asked, patient said that he doesn't want to take his own life, but that he would be okay with dying. Asked if he was depressed, patient said, no, sad. Patient says that he likes to drink because it brings him nehemiah and that he doesn't want treatment despite the complications from epilepsy. patient does admit to having a drinking problem. Seizure activity triggered by lack of seizure meds and drinking alcohol
--- NOTE | 2024-05-02 15:47 | P.PN_ITS ---
Subjective 2 Subjective: Today morning seen in ICU. Patient is awake and alert. Denies any nausea, vomiting, headache. Patient is frustrated and has been showing signs of agitation on and off in ICU. As per nursing staff did have episode of generalized shaking earlier in the morning today but did not have any bowel or bladder accident, changes in his vital signs or any signs of confusion before or after procedure with concerns for any postictal status. Has remained hemodynamically stable and afebrile. Asking when can be discharged. Vitals/I&O/Wt Last Vital Signs Temp 98.1 F 05/02/24 14:00 Pulse 62 05/02/24 14:00 Resp 16 05/02/24 14:00 BP 110/71 05/02/24 14:00 Pulse Ox 97 05/02/24 14:00 O2 Del Method Room Air 05/02/24 14:00 O2 Flow Rate 2.5 05/02/24 00:30 05/02/24 05/02/24 05/02/24 06:59 14:59 22:59 Intake Total 600 / 600 Balance 600 / 600 Weight last 48 hrs Weight 63 kg Weight 62.3 kg Weight 63.503 kg Physical Exam 2 Narrative: General: No acute distress, AO x3, thin built HEENT: PERRLA, pupils bilaterally equal and reactive Chest: Normal vesicular breath sounds, no added sounds, equal good air entry bilaterally CVS: S1-S2 regular, no murmurs, no tachycardia, no gallops, no rubs Abdomen: Soft, nontender, no organomegaly, bowel sounds present Neuro: No focal deficits, no facial deformity, AO x3, power 5/5 in all limbs Psych: COMMON NORMALS: speech normal ATTITUDE: Yes agitated and Yes hostile SPEECH: Yes normal speech Data 05/01/24 00:44 05/01/24 00:44 A&P Assessment and plan (1) Breakthrough seizure: History of seizure disorder with breakthrough seizures in the past. 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 Patient did have episode of shaking while in the ICU without any postictal symptoms as vitals remained stable. Patient supposed be on multiple antiseizure medications. Seems patient has not been taking his seizure medications on and off. Alcohol more than 200 on admission. Breakthrough seizure most likely in setting of poor compliance to seizure medications. Keppra level pending. Will add clobazam and oxcarbazepine level. Restart medications at home dose including clobazam, Depakote, lamotrigine, Trileptal. Seizure precautions. IM Ativan as needed for breakthrough seizure. (2) Cluster A personality disorder: (3) Psychosis: (4) Bipolar disorder: (5) Suicidal ideation: (6) Alcohol intoxication: Qualifiers: Complication of substance-induced condition: uncomplicated Qualified Code(s): F10.920 - Alcohol use, unspecified with intoxication, uncomplicated Plan Admitted for psychosis in setting of bipolar disorder with concerns of suicidal ideation. 96-hour as per psychiatric team. Thank you for involving us in care of Mr. Dill. Regular diet Attestations 2 Medical Necessity Statement*: Concerns for psychosis and suicidal ideation patient with bipolar disorder baseline seizure disorder with concerns for breakthrough seizure in setting of alcohol intoxication Diagnoses Breakthrough seizure G40.919 Cluster A personality disorder F60.89 Psychosis F29 Bipolar disorder F31.9 Suicidal ideation R45.851 Alcohol intoxication F10.920 Complication of substance-induced condition: uncomplicated
[2024-05-02 16:52] LABS: Valproic Acid Level 88.3 ug/mL (50-100)
--- NOTE | 2024-05-02 17:31 | P.NPUPN_ITS ---
Subjective NPU 2 Subjective: Patient presented today reporting that he was doing okay but wanted to leave. When we discussed the issues that were being considered and the concerns that were leading to him still being here he got quite upset and expressed significant frustration. Staff reports of significant irritability were also noted in direct observation. We discussed the fact that Dr. Alejandro would be here tomorrow to cover the unit and that he would be making decisions about discharge going forward. He denied any side effects to his medication. He had suggested that he was not getting all of his medication but reviewed with the nurse in his presence and he is receiving all medications as prescribed. Mental Status Exam 2 MSE Comments: This is a thin well nourished, well developed male with hospital scrubs on with limited grooming and eye contact. No abnormal movements except for mild psychomotor retardation. Semi-cooperative with exam in moderate distress. Speech was normal rate and decreased volume. Mood described as I am fine but I want to go home, affect is slightly subdued. Thought process, organized. Thought content: patient denies suicidal or homicidal ideation, no delusions reported or noted and denies any auditory or visual hallucinations. Attention and concentration are intact and memory appeared mostly reliable but none were formally tested. He is alert and oriented times three. Insight, judgment and impulse control are impaired. Vitals/I&O/Wt Last Vital Signs Temp 98.1 F 05/02/24 14:00 Pulse 62 05/03/24 08:00 Resp 16 05/03/24 08:00 BP 110/71 05/03/24 07:30 Pulse Ox 97 05/03/24 08:00 O2 Del Method Room Air 05/03/24 08:00 Weight last 48 hrs Weight 61.405 kg Weight 63 kg Weight 62.3 kg Data NPU 05/03/24 08:12 05/03/24 08:12 A&P Assessment and plan (1) Seizure: (2) Altered mental status: (3) Psychosis: (4) Cluster A personality disorder: (5) Psychosis: (6) Bipolar disorder: (7) Cannabis use disorder: (8) Suicidal ideation: (9) Alcohol intoxication: Qualifiers: Complication of substance-induced condition: uncomplicated Qualified Code(s): F10.920 - Alcohol use, unspecified with intoxication, uncomplicated (10) Alcohol use disorder, severe, dependence: (11) Alcohol withdrawal: Plan This is a 33 year old man with a record of now 6 psychiatric hospitalizations with likely some psychosis versus mood dysregulation who presents after reportedly calling the police hoping to get a ride and that turned into him making statements of lethality and being put on a 96-hour hold now reporting that he is perfectly fine and just wants to go home and that there is no need for any changes. 1. Continue current medications 2. Continue every 15 minute observation. 3. Encourage individual, group and milieu therapies. 4. Obtain collateral information. 5. Encourage sober living treatment after discharge at the highest level of care to which he is willing to commit. Involuntary Hold Information 2 96 Hour Hold: 96 Hour Involuntary Admission: Yes 96 Hour Hold Ending Date: 05/07/24 96 Hour Hold Ending Time: 00:30 Attestations NPU 2 Medical Necessity Statement*: Inpatient hospitalization is medically necessary and the clinically appropriate intervention at this time. We will monitor medications and make changes as indicated. Likely length of stay is 2-4 days. Coding Level of Care Code Acute Code for [facility] Diagnoses Seizure R56.9 Altered mental status R41.82 Psychosis F29 Cluster A personality disorder F60.89 Bipolar disorder F31.9 Cannabis use disorder F12.90 Suicidal ideation R45.851 Alcohol intoxication F10.920 Complication of substance-induced condition: uncomplicated Alcohol use disorder, severe, dependence F10.20 Alcohol withdrawal F10.939
[2024-05-02] MEDS: nicotine 2 mg Gum BUCCAL (17:49)
--- NOTE | 2024-05-02 17:51 | PC.NURSE ---
PT WAS UPSET THAT HE WAS GIVEN A SPOON TO EAT HIS MEAL WITH PER OUR [facility] POLICY FOR PSYCHIATRIC PTS. PT TOLD THE PHYSICIAN TO GO AHEAD AND CANCEL ALL MY MEALS FROM NOW ON. THIS PT WAS EDUCATED ON POLICY AND OFFERED A SANDWICH AN ALTERNATIVE TO HIS SALAD SINCE HE DID NOT FEEL THOUGH HE COULD EAT HIS SALAD WITH A SPOON. PT STATED TO THIS NURSE NO, THE SALAD LOOKED AMAZING, I WOULD LIKE A FORK. THIS NURSE INFORMED THE PT THAT MANY OF OUR PTS HAVE EATEN SALADS WITH SPOONS AND THAT DUE TO POLICY I AM UNABLE TO PROVIDE A FORK TO HIM AT THIS TIME. PT CONTINUED TO REFUSE HIS MEALS. PT THEN LOOKED AT THIS NURSE AND STATED I JUST WANT YOU TO KNOW THAT ANOTHER TRIGGER FOR MY SEIZURES IS NOT EATING. THIS NURSE AGAIN OFFERED TO GIVE THE PATIENT ALTERNATIVE TO HIS SALAD AND HE REFUSED AND STATED NO, I WANT A FORK. I WILL PROBABLY BE IN THE ICU AGAIN TONIGHT. PT IS AGITATED THAT HE WAS NOT ABLE TO BE DISCHARGED TO DAY AND IS FREQUENTLY STATING THIS HOSPITAL IS SHIT. PT REQUESTED TO OBTAIN PHONE NUMBERS OUT OF HIS CELL PHONE. MAXWELL GARCIA ALLOWED PT TO USE HIS PHONE WITH SUPERVISION AND PT TOOK HIS PHONE AND WENT INTO HIS ROOM EVEN AFTER MULTIPLE EXPLANATIONS. PT PHONE WAS REMOVED FROM HIM.
[2024-05-03] VITALS (46 sets, daily range): BP systolic 83–124; BP diastolic 42–93; PULSE 48–81; RESP 12–33; TEMP 36.6–37.1; O2SAT 93–100
[2024-05-03] MEDS: LORazepam 2 mg/mL INJ 1 mL 1 MG IM (03:41)
--- NOTE | 2024-05-03 03:44 | PC.NURSE ---
Patient off unit by stretcher to ICU at 2381 05/02/24
[2024-05-03] MEDS: levETIRAcetam 500 MG/100 ML PREMIX 400 MG IV ×2 (03:51→15:37)
--- NOTE | 2024-05-03 04:25 | PC.NURSE ---
Addendum entered by Lydia Lee RN 05/03/24 04:32: Rapid Response called 05/03/24 @0321 RADHA Bravo heard a noise at 0320 while in the ly and went into room 150 and hollered out for help. Patient SC was found in the floor displaying seizure like activity and hitting his forehead head on the wooden bed. This nurse and Broomcorn Grader Keyla was at nurse?s station and we went into room. IKER Dale call a Rapid Response at 0321. The patient was on the floor and turned to his side and his head protected with pillows. Symptoms resolved at 0327. Vitals were BP 134/72, HR 140, R 22, O2 97 and patient was diaphoretic. Response team and security present and orders received from Dr. Dwyer. IV access was obtained. Medication administered, see MAR. Patient was placed on a stretcher. Patient transported to ICU at 0339. Original Note: Rapid Response called 05/03/24 @0321 RADHA Bravo heard a noise at 0320 while in the ly and went into room 150 and hollered out for help. Patient SC was found in the floor displaying seizure like activity. This nurse and Broomcorn Grader Keyla was at nurse?s station and we went into room. IKER Dale call a Rapid Response at 0321. The patient was on the floor and turned to his side and his head protected with pillows. Symptoms resolved at 0327. Vitals were BP 134/72, HR 140, R 22, O2 97 and patient was diaphoretic. Response team present and orders received from Dr. Dwyer. IV access was obtained. Patient was placed on a stretcher. Security present. Patient transported to ICU at 0339.
--- NOTE | 2024-05-03 07:34 | PC.NURSE ---
Home Medications Patient home medications transferred to ICU. Controlled medication clobazam recounted with ALE RN and locked in pyxis with non-controlled medications.
[2024-05-03 08:24] LABS: Basophils % 0.2 %; Eosinophils % 0.8 %; Hematocrit 38.9 % (37-53); Lymphocytes # 2.9 10^3/uL (0.8-4.8); Lymphocytes % 57.6 %; Mean Corpuscular HGB Conc 33.9 g/dL (30-55); Mean Corpuscular Hemoglobin 33.1 pg (27-33); Mean Corpuscular Volume 97.5 fl (82-101); Mean Platelet Volume 10.2 fL (7.4-10.4); Monocytes # 0.3 10^3/uL (0.2-0.9); Monocytes % 6.3 %; Neutrophils # 1.73 10^3/uL (1.8-7.7); Neutrophils % 34.9 %; Nucleated Red Blood Cells % 0 %; Platelet Count 160 10^3/cmm (157-399); Red Blood Count 3.99 10^6/uL (3.85-5.65); Red Cell Distribution Width 11.7 % (12.1-15.1); White Blood Count 4.95 10^3/uL (3.29-11.43)
[2024-05-03] MEDS: CLOBAZAM 10 MG 25 EACH PO ×2 (08:34→20:50)
[2024-05-03] MEDS: folic acid 1 mg Tablet PO (08:37)
[2024-05-03] MEDS: multivitamin therapeutic Tablet 1 TAB PO (08:37)
[2024-05-03] MEDS: thiamine 100 mg Tablet PO (08:37)
[2024-05-03] MEDS: OXcarbazepine 300 mg Tablet 900 MG PO ×2 (08:44→20:59)
[2024-05-03] MEDS: lamoTRIgine 25 mg Tablet 75 MG PO ×2 (08:45→20:59)
[2024-05-03] MEDS: divalproex DR 250 mg Tablet 750 MG PO ×2 (08:45→20:59)
[2024-05-03 09:01] LABS: Alanine Aminotransferase 42 U/L (0-41); Albumin Level 3.8 g/dL (3.5-5.2); Alkaline Phosphatase 49 U/L (40-130); Anion Gap 12.8 (5-19); Aspartate Amino Transferase 35 U/L (0-40); Blood Urea Nitrogen 6 mg/dL (6-20); Calcium 8.2 mg/dL (8.5-10.5); Carbon Dioxide 26 mmol/L (22-29); Chloride 103 mmol/L (98-107); Creatinine Clr Calc Pharmacy 172.4875; Globulin 1.9 g/dL (1.3-4.6); Glomerular Filtration Rate 157.1 mL/min (90-130); Glucose 89 mg/dL (65-115); Osmolality Calculated 283 mOsm/kg (285-295); Potassium 3.8 mmol/L (3.5-5.1); Sodium 138 mmol/L (136-145); Total Bilirubin 0.5 mg/dL (0.15-1.2); Total Protein 5.7 g/dL (6.6-8.7)
--- NOTE | 2024-05-03 10:33 | MRR_ITS ---
PROCEDURE INFORMATION: Exam: MR Head Without Contrast Exam date and time: 05/03/2024 2:21 PM Age: 33 years old Clinical indication: Malaise or fatigue, Breakthrough seizure TECHNIQUE: Imaging protocol: Magnetic resonance imaging of the head without contrast. COMPARISON: CT head wo con* [id number] 05/02/2024 1:23 AM FINDINGS: Brain: Normal. No acute infarct. No hemorrhage. No significant white matter disease. No edema. Cerebral ventricles: Normal. No ventriculomegaly. Bones: Unremarkable. Paranasal sinuses: Normal as visualized. No acute sinusitis. Mastoid air cells: Normal as visualized. No mastoid effusion. Orbital cavities: Unremarkable. Soft tissues: Unremarkable. MR/MR head wo con* [id number] IMPRESSION: No acute findings.
[2024-05-03] MEDS: haloperidol inj 5 mg/mL INJ 1 mL IM (11:51)
--- NOTE | 2024-05-03 12:12 | PC.NURSE ---
While assisting another patient this nurse heard code 10 called for ICU. Upon assessing the situation, patient found in ly with two security officers, PA, and nursing staff present. Patient verbally aggressive and refusing to reenter his room. Security and staff able to assist patient back to his room. Dr. De Dios ordered 5mg Haldol to be given, See MAR. After much conversation patient agrees to wait for Dr. Alejandro to assess 96 hour hold. Patient is refusing afternoon meal, blood pressure cuff and O2 monitoring at this time.
--- NOTE | 2024-05-03 14:16 | P.PN_ITS ---
Subjective 2 Subjective: It seems patient had a seizure-like activity again overnight and was transferred back to ICU. As per documentation he was transferred to the ICU around 3:45 AM and he had a seizure-like activity around 3:25 AM. On presentation to the ICU at 4 AM patient was awake and alert. Currently patient is awake and alert, does not want to engage much in conversation. Occasionally having soft blood pressures of systolic less than 100 but maintain mean artery pressure 65. Remains on room air. Vitals/I&O/Wt Last Vital Signs Temp 98.8 F 05/03/24 08:00 Pulse 66 05/03/24 12:30 Resp 16 05/03/24 12:30 BP 95/54 05/03/24 10:30 Pulse Ox 99 05/03/24 11:30 O2 Del Method Room Air 05/03/24 10:00 O2 Flow Rate 2.5 05/02/24 00:30 05/02/24 05/03/24 05/03/24 22:59 06:59 14:59 Intake Total 100 / 100 480 / 480 Balance 100 / 100 480 / 480 Weight last 48 hrs Weight 61.405 kg Weight 63 kg Weight 62.3 kg Physical Exam 2 Narrative: General: No acute distress, AO x3, thin built HEENT: PERRLA, pupils bilaterally equal and reactive Chest: Normal vesicular breath sounds, no added sounds, equal good air entry bilaterally CVS: S1-S2 regular, no murmurs, no tachycardia, no gallops, no rubs Abdomen: Soft, nontender, no organomegaly, bowel sounds present Neuro: No focal deficits, no facial deformity, AO x3, power 5/5 in all limbs Psych: COMMON NORMALS: speech normal ATTITUDE: Yes agitated and Yes hostile SPEECH: Yes normal speech Data 05/03/24 08:12 05/03/24 08:12 A&P Assessment and plan (1) Breakthrough seizure: History of seizure disorder with breakthrough seizures in the past. Likelihood of pseudoseizures as well. Patient does not seem to have significant postictal status post seizure-like activity. Patient supposed be on multiple antiseizure medications. Seems patient has not been taking his seizure medications on and off. Alcohol more than 200 on admission. Breakthrough seizure most likely in setting of poor compliance to seizure medications. Normal valproic acid levels. Keppra 5 mg IV every 12 hourly added overnight. Keppra, clobazam, lamotrigine levels pending so far. Will have to monitor for oversedation. Continue with medications at home dose including clobazam, Depakote, lamotrigine, Trileptal. Seizure precautions. IM Ativan as needed for breakthrough seizure. Unfortunately no neurology is available currently today. Will check again tomorrow if there is a level. Meanwhile can plan to do an EEG, monitor in ICU and possibly MRI head if needed. (2) Cluster A personality disorder: (3) Psychosis: (4) Bipolar disorder: (5) Suicidal ideation: Currently on 96-hour hold as per psychiatric team. Treatment as per psychiatric team. Patient did have an event and with code 10 was called as he was trying to leave the ICU AGAINST MEDICAL ADVICE. Will follow-up psychiatric recommendation. Haldol 5 mg IM every 4 hours as needed. (6) Alcohol intoxication: Qualifiers: Complication of substance-induced condition: uncomplicated Qualified Code(s): F10.920 - Alcohol use, unspecified with intoxication, uncomplicated Plan Admitted for psychosis in setting of bipolar disorder with concerns of suicidal ideation. 96-hour as per psychiatric team. Thank you for involving us in care of Mr. Dill. Full code Regular diet Attestations 2 Medical Necessity Statement*: Requires further hospitalization for 96-hour hold given suicidal ideation in a patient with psychosis, bipolar disorder admitted for alcohol intoxication getting complicated by breakthrough seizures in a patient with history of seizure disorder on multiple antiseizure medications Diagnoses Breakthrough seizure G40.919 Cluster A personality disorder F60.89 Psychosis F29 Bipolar disorder F31.9 Suicidal ideation R45.851 Alcohol intoxication F10.920 Complication of substance-induced condition: uncomplicated
[2024-05-03] MEDS: sodium chloride 0.9% 500 ML 999 ML IV (16:52)
--- NOTE | 2024-05-03 18:18 | PC.NURSE ---
Patient refused afternoon and evening meal. Refuses PO fluids. Reported lower blood pressures to Dr. De Dios, order received for 500ml fluid bolus. See MAR, BP improved as documented. Patient allowing cardiac, oxygen and blood pressure monitoring at this time. Patient provided with coloring pages and crayons for amusement, patient refuses TV in room, patient states he is tired of waiting for psychology and wants to go home. At this time patient is resting in bed, vitals stable BC on monitor, calm and resting. Denies any needs at this time. Denies pain despite previously C/o left hand pain. PA with patient.
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
[2024-05-03] MEDS: acetaminophen 325 mg Tablet 650 MG PO (19:39)
--- NOTE | 2024-05-03 20:07 | P.NPUPN_ITS ---
Subjective NPU 2 Subjective: 33-year-old male history of alcohol use disorder as well as a history of seizure disorder currently on the intensive care unit. Patient continued to appear somewhat ornery on the unit. He had stated that he simply wished to go home and reported that he did not want to be on the psychiatric unit. Patient was informed that he was here involuntarily and it had been recommended that the patient be continued with treatment including his medications in the intensive care unit. The patient had minimized having any thoughts of hurting himself or others although he had stated that he had made that statement at the time of his admission. He continued to report no clear connection between his alcohol use and his seizures stating that he loves to drink. He had reported having no desire at this point to stop the use of alcohol. Mental Status Exam 2 MSE Comments: This is a thin well nourished, well developed male with hospital scrubs on with limited grooming and eye contact. No abnormal movements except for mild psychomotor retardation. He was minimally cooperative with exam in moderate distress. Speech was decreased in rate and decreased in volume. Mood described as fine stating that he wants to go home.His affect was dysphoric and mood incongruent. Thought process was linear. Thought content: patient denies suicidal or homicidal ideation, no delusions reported or noted and denies any auditory or visual hallucinations. Attention and concentration are intact and memory appeared mostly reliable but none were formally tested. He is alert and oriented times three. Insight is impaired. His judgment and impulse control are impaired. Vitals/I&O/Wt Last Vital Signs Temp 97.9 F 05/03/24 18:00 Pulse 78 05/03/24 19:40 Resp 15 05/03/24 19:40 BP 107/63 05/03/24 19:40 Pulse Ox 98 05/03/24 19:40 O2 Del Method Room Air 05/03/24 19:40 O2 Flow Rate 2.5 05/02/24 00:30 05/03/24 05/03/24 05/03/24 06:59 14:59 22:59 Intake Total 100 / 100 480 / 480 600 / 1080 Output Total 650 / 650 Balance 100 / 100 480 / 480 -50 / 430 Weight last 48 hrs Weight 61.405 kg Weight 63 kg Weight 62.3 kg Data NPU 05/03/24 08:12 09/22/24 08:12 A&P Assessment and plan (1) Seizure: (2) Altered mental status: (3) Psychosis: (4) Cluster A personality disorder: (5) Psychosis: (6) Bipolar disorder: (7) Cannabis use disorder: (8) Suicidal ideation: (9) Alcohol intoxication: Qualifiers: Complication of substance-induced condition: uncomplicated Qualified Code(s): F10.920 - Alcohol use, unspecified with intoxication, uncomplicated (10) Alcohol use disorder, severe, dependence: (11) Alcohol withdrawal: Plan This is a 33 year old man with a record of now 6 psychiatric hospitalizations with likely some psychosis versus mood dysregulation who presents after reportedly calling the police hoping to get a ride and that turned into him making statements of lethality and being put on a 96-hour hold now reporting that he is perfectly fine and just wants to go home and that there is no need for any changes. 1. Continue current medications, expecting transfer back to NPU when stabilized in ICU. 2. Continue every 15 minute observation. 3. Encourage individual, group and milieu therapies. 4. Obtain collateral information. 5. Encourage sober living treatment after discharge at the highest level of care to which he is willing to commit. Involuntary Hold Information 2 96 Hour Hold: 96 Hour Involuntary Admission: Yes 96 Hour Hold Ending Date: 05/07/24 96 Hour Hold Ending Time: 00:30 Attestations NPU 2 Medical Necessity Statement*: Inpatient hospitalization is medically necessary and the clinically appropriate intervention at this time. We will monitor medications and make changes as indicated. Likely length of stay is 1-2 days. Coding Level of Care Code Acute Code for [facility] Diagnoses Seizure R56.9 Altered mental status R41.82 Psychosis F29 Cluster A personality disorder F60.89 Bipolar disorder F31.9 Cannabis use disorder F12.90 Suicidal ideation R45.851 Alcohol intoxication F10.920 Complication of substance-induced condition: uncomplicated Alcohol use disorder, severe, dependence F10.20 Alcohol withdrawal F10.939
[2024-05-04] VITALS (31 sets, daily range): BP systolic 81–123; BP diastolic 39–76; PULSE 51–86; RESP 6–22; TEMP 36.6–36.8; O2SAT 74–99
[2024-05-04 04:27] LABS: Basophils % 0.3 %; Eosinophils # 0.1 10^3/uL (0.0-0.8); Eosinophils % 0.8 %; Hematocrit 38.5 % (37-53); Lymphocytes # 3.6 10^3/uL (0.8-4.8); Lymphocytes % 58.9 %; Mean Corpuscular HGB Conc 33.5 g/dL (30-55); Mean Corpuscular Hemoglobin 32.7 pg (27-33); Mean Corpuscular Volume 97.5 fl (82-101); Mean Platelet Volume 10.9 fL (7.4-10.4); Monocytes # 0.3 10^3/uL (0.2-0.9); Monocytes % 5.6 %; Neutrophils # 2.06 10^3/uL (1.8-7.7); Neutrophils % 34.1 %; Nucleated Red Blood Cells % 0 %; Platelet Count 166 10^3/cmm (157-399); Red Blood Count 3.95 10^6/uL (3.85-5.65); Red Cell Distribution Width 11.9 % (12.1-15.1); White Blood Count 6.06 10^3/uL (3.29-11.43)
[2024-05-04 04:55] LABS: Alanine Aminotransferase 38 U/L (0-41); Albumin Level 3.9 g/dL (3.5-5.2); Alkaline Phosphatase 46 U/L (40-130); Anion Gap 13.9 (5-19); Aspartate Amino Transferase 31 U/L (0-40); Blood Urea Nitrogen 6 mg/dL (6-20); Calcium 8.4 mg/dL (8.5-10.5); Carbon Dioxide 25 mmol/L (22-29); Chloride 105 mmol/L (98-107); Creatinine Clr Calc Pharmacy 147.8464; Globulin 1.8 g/dL (1.3-4.6); Glomerular Filtration Rate 131.5 mL/min (90-130); Glucose 141 mg/dL (65-115); Osmolality Calculated 290 mOsm/kg (285-295); Potassium 3.9 mmol/L (3.5-5.1); Sodium 140 mmol/L (136-145); Total Bilirubin 0.5 mg/dL (0.15-1.2); Total Protein 5.7 g/dL (6.6-8.7)
--- NOTE | 2024-05-04 04:55 | PC.NURSE ---
Late entry 05/03/241919: Patient returned to unit escorted by nursing and police officers. Patient ambulatory and returned directly to his room without complaint. Assessed for injury and foreign bodies, none noted. Stated he had minor pain to left forearm from injury before hospitalization and had x-ray done yesterday, ROM WNL and PRN Tylenol administered for same. Alert and oriented x4, upset due to not being able to use phone but cooperative with this nurse.
--- NOTE | 2024-05-04 04:59 | PC.NURSE ---
Patient has been friendly and cooperative since return to unit. Has rested well, and requested snacks while awake. No further anxiety, restlessness, or elopement attempts.
[2024-05-04] MEDS: levETIRAcetam 500 MG/100 ML PREMIX 400 MG IV (05:08)
[2024-05-04] MEDS: acetaminophen 325 mg Tablet 650 MG PO (08:27)
[2024-05-04] MEDS: lamoTRIgine 25 mg Tablet 75 MG PO (08:27)
[2024-05-04] MEDS: divalproex DR 250 mg Tablet 750 MG PO (08:27)
[2024-05-04] MEDS: multivitamin therapeutic Tablet 1 TAB PO (08:27)
[2024-05-04] MEDS: CLOBAZAM 10 MG 25 EACH PO (08:27)
[2024-05-04] MEDS: thiamine 100 mg Tablet PO (08:28)
[2024-05-04] MEDS: OXcarbazepine 300 mg Tablet 900 MG PO (08:28)
[2024-05-04] MEDS: folic acid 1 mg Tablet PO (08:28)
--- NOTE | 2024-05-04 11:32 | PM.PN ---
Subjective Subjective: Patient was seen this morning he is alert and oriented x 3, following all commands, denies any breakthrough seizures, no nausea, no vomiting, no headache, blurry vision, denies any suicidal ideation, no homicidal ideation, we discussed his compliance with his seizure medications he tells me that he does not have a supply of his seizure medications, will give him a 30-day supply, but he needs to follow-up with his primary care provider for further refills, he does not have a local neurologist, his neurologist for [facility], will have to follow-up with neurologist here in town, after follow with primary care provider advised to abstain from marijuana use, staying from alcohol use, he voiced understanding, all questions answered, Vitals/I&O/Wt Last Vital Signs Temp 98.1 F 05/04/24 09:15 Pulse 62 05/04/24 10:00 Resp 18 05/04/24 10:00 BP 123/57 05/04/24 10:00 Pulse Ox 95 05/04/24 10:00 O2 Del Method Room Air 05/03/24 19:40 O2 Flow Rate 2.5 05/02/24 00:30 05/03/24 05/04/24 05/04/24 22:59 06:59 14:59 Intake Total 600 / 1080 100 / 100 Output Total 650 / 650 625 / 625 Balance -50 / 430 -525 / -525 Weight last 48 hrs Weight 64.5 kg Weight 61.405 kg Physical Exam Const: COMMON NORMALS: no acute distress and patient oriented x3 Resp: COMMON NORMALS: normal respiratory effort, No retractions, No use of accessory muscles and clear to auscultation bilaterally AUSCULTATION: clear to auscultation bilaterally Cardio: COMMON NORMALS: regular rate, regular rhythm, S1 normal heart sound present and S2 normal heart sound present RATE: regular rate RHYTHM: regular rhythm HEART SOUNDS: S1 normal heart sound present and S2 normal heart sound present GI: COMMON NORMALS: Normal to inspection, nondistended, normoactive bowel sounds present and non-tender Extremity: COMMON NORMALS: no pedal edema Neuro: COMMON NORMALS: patient oriented x3 Psych: COMMON NORMALS: mental status grossly normal Data 05/04/24 03:51 05/04/24 03:51 A&P Assessment and plan (1) Breakthrough seizure: Plan Patient will be discharged today, will discharge her with a month supply of his Lamictal, Trileptal, Depakote, Onfi, with close follow-up with primary care close follow-up with neurology, if any breakthrough seizures please go to the emergency room, advised to abstain from alcohol use, abstain from drug use, advised of compliance of seizure medication Attestations Medical Necessity Statement*: Patient will be discharged today Diagnoses Breakthrough seizure G40.919
--- NOTE | 2024-05-04 14:18 | PC.NURSE ---
Patient received discharge orders. All prescriptions sent to patients preferred pharmacy. Patient was not able to provide a home address to arrange a medicaid ride and requested to walk. All restrictions lifted and patient will walk upon home upon discharge. Instructions reviewed and patient verbalized understanding. All IV's removed.
--- NOTE | 2024-05-04 14:58 | PC.NURSE ---
Patient left the unit [id number].
--- NOTE | 2024-05-04 15:00 | PC.NURSE ---
Patients belongings sent with patient and home meds also sent with patient
[2024-05-04 15:59] LABS: Levetiracetam Immunoassy <2.0 mcg/mL (6.0-46.0)
--- NOTE | 2024-05-04 19:00 | P.NPUPN_ITS ---
Subjective NPU 2 Subjective: 33-year-old male history of alcohol use disorder as well as a history of seizure disorder currently on the intensive care unit after an alleged pseudoseizure. Thank the patient had been apprehended after fleeing the intensive care unit and was brought back to the the ICU. He appeared to be more stable. He had been unwilling to consider any treatment for his chronic alcohol abuse despite there being considerable evidence that it may be a significant factor in her his active seizure problems. He had requested that he be allowed to return home. He was agreeable to consideration for an outpatient appointment for further treatment. Mental Status Exam 2 MSE Comments: This is a thin well nourished, well developed male with hospital scrubs on with limited grooming and eye contact. No abnormal movements except for mild psychomotor retardation. He was minimally cooperative with exam in moderate distress. Speech was decreased in rate and decreased in volume. Mood described as allright. His affect was restricted. Thought process was linear. Thought content: patient denies suicidal or homicidal ideation, no delusions reported or noted and denies any auditory or visual hallucinations. Attention and concentration are intact and memory appeared mostly reliable but none were formally tested. He is alert and oriented times three. Insight is impaired. His judgment is limited and impulse control is limited as well. Vitals/I&O/Wt Last Vital Signs Temp 97.9 F 05/04/24 14:59 Pulse 70 05/04/24 14:59 Resp 14 05/04/24 14:59 BP 105/64 05/04/24 14:59 Pulse Ox 98 05/04/24 14:59 O2 Del Method Room Air 05/03/24 19:40 O2 Flow Rate 2.5 05/02/24 00:30 05/04/24 05/04/24 05/04/24 06:59 14:59 22:59 Intake Total 460 / 460 Output Total 625 / 625 Balance -165 / -165 Weight last 48 hrs Weight 64.5 kg Weight 61.405 kg Data NPU 05/04/24 03:51 05/04/24 03:51 A&P Assessment and plan (1) Seizure: (2) Alcohol intoxication: Qualifiers: Complication of substance-induced condition: uncomplicated Qualified Code(s): F10.920 - Alcohol use, unspecified with intoxication, uncomplicated (3) Altered mental status: (4) Psychosis: (5) Cluster A personality disorder: (6) Psychosis: (7) Bipolar disorder: (8) Cannabis use disorder: (9) Suicidal ideation: (10) Alcohol use disorder, severe, dependence: (11) Alcohol withdrawal: Plan This is a 33 year old man with a record of now 6 psychiatric hospitalizations with likely some psychosis versus mood dysregulation who presents after reportedly calling the police hoping to get a ride and that turned into him making statements of lethality and being put on a 96-hour hold. 1. No need to return to NPU, patient has minimal insight or interest in treatment. Rescind 96 hour hold. 2. Continue every 15 minute observation. 3. Encourage individual, group and milieu therapies. 4. Obtain collateral information. 5. Encourage sober living treatment after discharge at the highest level of care to which he is willing to commit. Involuntary Hold Information 2 96 Hour Hold: 96 Hour Involuntary Admission: Yes 96 Hour Hold Ending Date: 05/07/24 96 Hour Hold Ending Time: 00:30 Attestations NPU 2 Medical Necessity Statement*: D/C today. Outpatient therapy recommended. Coding Level of Care Code Acute Code for [facility] Diagnoses Seizure R56.9 Alcohol intoxication F10.920 Complication of substance-induced condition: uncomplicated Altered mental status R41.82 Psychosis F29 Cluster A personality disorder F60.89 Bipolar disorder F31.9 Cannabis use disorder F12.90 Suicidal ideation R45.851 Alcohol use disorder, severe, dependence F10.20 Alcohol withdrawal F10.939
[2024-05-09 13:33] LABS: Clobazam Level 130 ng/mL; Desmethylclobazam Level 1300 ng/mL
== END 2024-05-04 14:55 | disposition home or self-care (01) | DRG 885 ==
LOC: ER 03:44 → NP 04:01 → ICU 23:43 → NP 05-02 12:19 → ICU 05-03 03:43
PROVIDERS: Family Medicine; Student in an Organized Health Care Education/Training Program; Admitting Provider Psychiatry & Neurology Psychiatry; Emergency Provider Emergency Medicine; Visit Provider Psychiatry & Neurology Psychiatry
DX: F29 Unspecified psychosis not due to a substance or known physiological condition (principal); G40.919 Epilepsy, unspecified, intractable, without status epilepticus; R45.851 Suicidal ideations; F10.239 Alcohol dependence with withdrawal, unspecified; F17.290 Nicotine dependence, other tobacco product, uncomplicated; F60.89 Other specific personality disorders; F31.9 Bipolar disorder, unspecified; F12.90 Cannabis use, unspecified, uncomplicated; F10.229 Alcohol dependence with intoxication, unspecified; Z91.148 Patient's other noncompliance with medication regimen for other reason; Y90.8 Blood alcohol level of 240 mg/100 ml or more; Z79.899 Other long term (current) drug therapy
CPT/HCPCS: 36415; 36416; 70450; 70551; 73100; 80053; 80164; 80175; 80177; 80183; 80299; 80306; 80307; 81001; 82962; 84443; 85025; 93005; 96372; 96376; 97150; 97165; 99285; J1630; J1953; J2060; J7040; J7050

== ENCOUNTER 2024-05-07 12:25 | Emergency (ER) | payer MEDICAID, SELFPAY ==
[2023-01-22 16:55] VITALS: BP 120/70; BMI 30.9
--- NOTE | 2024-05-07 12:27 | ECG_ITS ---
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 Measurements Intervals Ponder Rate: 101 P: 71 ID: [id number] QRS: 91 QRSD: 89 T: 46 QT: 312 QTc: 405 Interpretive Statements SINUS TACHYCARDIA RIGHT ATRIAL ENLARGEMENT [0.3mV P-WAVE] BORDERLINE RIGHT AXIS DEVIATION [QRS AXIS > 90] VOLTAGE CRITERIA FOR LVH [MEETS CRITERIA IN ONE OF: R(aVL), S(V1), R(V5), R(V5/V6)+S(V1)] MODERATE ST DEPRESSION [0.05+ mV ST DEPRESSION] Compared to ECG 05/02/2024 00:10:50 Atrial abnormality now present ST (T wave) deviation now present Sinus rhythm no longer present Electronically Signed On 05-07-2024 16:35:01 CDT by Ramiro Crocker M.D. [id number]
[2024-05-07 12:32] VITALS: BP 146/103; PULSE 95; RESP 18; TEMP 36.7; O2SAT 100
--- NOTE | 2024-05-07 12:39 | ED_ITS ---
HPI - Dizziness 2 General: Chief Complaint: Dizziness Stated Complaint: rapid HB Time Seen by Provider: 05/07/24 12:30 Source: patient Mode of arrival: ambulatory History of Present Illness: HPI Narrative: 33-year-old male recently been admitted to the [facility] here along with inpatient mission with history of seizures he states that they had written prescriptions but he forgot to fill them he states that he has been feeling shaky and feels like he needs his meds he states they are at the pharmacy currently 1 to come to the ER to get checked out denies any seizure activity since he has been discharged denies any headache states he just feels cloudy Associated symptoms: Denies chest pain, chills, headache(s), nausea or vomiting Related Data Previous Rx's Medication Instructions Recorded aripiprazole 15 mg tablet 7.5 mg (1/2 x 15 mg) PO BEDTIME 05/15/23 #60 tabs clobazam 10 mg tablet 25 mg (2.5 x 10 mg) PO BID 30 days 05/04/24 #150 tabs divalproex 500 mg tablet,delayed 750 mg (1.5 x 500 mg) PO BID 30 05/04/24 release (Depakote) days #90 tabs lamotrigine 150 mg tablet 75 mg (1/2 x 150 mg) PO BID 30 05/04/24 (Lamictal) days #30 tabs multivitamin with folic acid 400 1 tab PO DAILY 30 days #30 tabs 05/04/24 mcg tablet (Thera) oxcarbazepine 600 mg tablet 900 mg (1.5 x 600 mg) PO BID 30 05/04/24 days #90 tabs thiamine mononitrate (vit B1) 100 100 mg PO DAILY 30 days #30 tabs 05/04/24 mg tablet (Vitamin B-1 (mononitrate)) Allergies Allergy/AdvReac Type Severity Reaction Status Date / Time No Known Allergies Allergy Verified 03/26/24 09:47 Review of Systems 2 Const: Denies: fever(s), chills, body aches or change in appetite Eyes: Denies: blurry vision or eye discomfort ENMT: Denies: throat pain or dental pain Card: Denies: chest pain Resp: Denies: dyspnea GI: Denies: abdominal pain, nausea, vomiting or diarrhea Musc: Denies: neck pain or back pain Skin/Breast: Denies: rash Neuro: Denies: headache(s) PFSH ED 2 PFSH: Medical History History of seizure disorder Suicidal ideation Acute psychosis Elevated lactic acid level Rhabdomyolysis Leukocytosis Acute encephalopathy Seizures Bipolar disorder Psychiatric care Seizure Family History Grandmother Hyperlipidemia Hypertension Mother Lupus Other Cancer Stroke Denies family history of Diabetes CAD (coronary artery disease) Clotting disorder Psychiatric illness Chronic kidney disease (CKD) Anesthesia complication Bleeding disorder Lung disease Social History Smoking and tobacco/nicotine status: current every day tobacco/nicotine user e- cigarettes E-Cigarette Details: vaporizer device E-cig/vape details: rare but if someone has some in a flavor i like. Second hand smoke exposure: Yes Alcohol intake: former Substance/Drug Use: current Substance/Drug use frequency: daily Adopted: No Caregiver/support person: No Lives independently: Yes Household members: none Housing: Apartment Marital status: Single Number of children: 0 Highest education level completed: High School Graduate service: No Current occupational status: unemployed Current occupational exposures/hazards: No Pets and animals: No Leisure activites: exercise, games and other Leisure activities details: video games, cards, bike rides Sexually active: No Current gender identity: Male Veronica/Scientologist: [employer]ab[employer] Special veronica needs: No Agree to transfusion: Yes Physical Exam 2 Const: COMMON NORMALS: no acute distress, patient oriented x3 and healthy appearing HENMT: COMMON NORMALS: normocephalic and atraumatic HEAD & SCALP: n ormocephalic and atraumatic Eye: COMMON NORMALS: Equal, round and reactive pupils present and EOMs intact bilaterally PUPIL: Yes Equal, round and reactive pupils present Neck/C-Spine: COMMON NORMALS: full ROM and supple Chest: COMMONS NORMALS: normal inspection of the chest and normal palpation of entire chest wall Resp: COMMON NORMALS: normal respiratory effort, No retractions, No use of accessory muscles and clear to auscultation bilaterally AUSCULTATION: clear to auscultation bilaterally Cardio: COMMON NORMALS: regular rate, regular rhythm and No murmurs present (Cardio) RATE: regular rate RHYTHM: regular rhythm GI: COMMON NORMALS: Normal to inspection, nondistended, normoactive bowel sounds present, Soft to palpation, non-tender and no masses PALPATION: Yes Soft to palpation Extremity: COMMON NORMALS: normal to inspection and full ROM Neuro: COMMON NORMALS: patient oriented x3, moves all extremities and no focal motor deficits Psych: COMMON NORMALS: mental status grossly normal, Normal thought process present and cooperative THOUGHT PROCESS: Normal thought process present Skin: COMMON NORMALS: no rashes or lesions noted and no wounds GENERAL SKIN EXAM: no rashes or lesions noted Course 2 Vital Signs: Vital signs: Vital Signs Temperature 98.0 F 05/07/24 12:32 Pulse Rate 65 05/07/24 14:39 Respiratory Rate 18 05/07/24 12:32 Blood Pressure 120/69 05/07/24 14:39 Pulse Oximetry 99 05/07/24 14:39 Oxygen Delivery Me thod Room Air 05/07/24 12:50 MDM - Dizziness Medical Decision Making Patient presents for some generalized weakness he has been well-appearing here he has not filled his medications since being discharged this week from the [facility]. I informed him that he needs to go to the pharmacy and fill his meds I did give him a dose of Depakote and Lamictal here. Medical Records I reviewed the patient's medical records. Lab Data I reviewed the patient's lab results. 05/07/24 12:49 05/07/24 12:49 Laboratory Results WBC 7.23 10^3/uL (3.29-11.43) 05/07/24 12:49 RBC 4.86 10^6/uL (3.85-5.65) 05/07/24 12:49 Hgb 15.80 g/dL (11.27-16.99) 05/07/24 12:49 Hct 46.6 % (37-53) 05/07/24 12:49 MCV 95.9 fl (82-101) 05/07/24 12:49 MCH 32.5 pg (27-33) 05/07/24 12:49 MCHC 33.9 g/dL (30-55) 05/07/24 12:49 RDW 11.7 % (12.1-15.1) L 05/07/24 12:49 Plt Count 211 10^3/cmm (157-399) 05/07/24 12:49 MPV 11.1 fL (7.4-10.4) H 05/07/24 12:49 Neut % (Auto) 50.5 % 05/07/24 12:49 Lymph % (Auto) 43.2 % 05/07/24 12:49 [place] % (Auto) 5.8 % 05/07/24 12:49 Eos % (Auto) 0.1 % 05/07/24 12:49 Baso % (Auto) 0.3 % 05/07/24 12:49 Neut # (Auto) 3.65 10^3/uL (1.8-7.7) 05/07/24 12:49 Lymph # (Auto) 3.1 10^3/uL (0.8-4.8) 05/07/24 12:49 [place] # (Auto) 0.4 10^3/uL (0.2-0.9) 05/07/24 12:49 Eos # (Auto) 0.0 10^3/uL (0.0-0.8) 05/07/24 12:49 Baso # (Auto) 0.0 10^3/uL (0.0-0.1) 05/07/24 12:49 Nucleated RBC % (auto) 0 % 05/07/24 12:49 Nucleated RBCs # 0.0 /100WBC 05/07/24 12:49 Sodium 140 mmol/L (136-145) 05/07/24 12:49 Potassium 3.8 mmol/L (3.5-5.1) 05/07/24 12:49 Chloride 100 mmol/L (98-107) 05/07/24 12:49 Carbon Dioxide 24 mmol/L (22-29) 05/07/24 12:49 Anion Gap 19.8 (5-19) H 05/07/24 12:49 BUN 8 mg/dL (6-20) 05/07/24 12:49 Creatinine 0.7 mg/dL (0.7-1.2) 05/07/24 12:49 GFR Calculation 131.5 mL/min (90-130) H 05/07/24 12:49 Glucose 116 mg/dL (65-115) H 05/07/24 12:49 Calculated Osmolality 289 mOsm/kg (285-295) 05/07/24 12:49 Calcium 9.4 mg/dL (8.5-10.5) 05/07/24 12:49 Total Bilirubin 0.5 mg/dL (0.15-1.2) 05/07/24 12:49 AST 17 U/L (0-40) 05/07/24 12:49 ALT 24 U/L (0-41) 05/07/24 12:49 Alkaline Phosphatase 59 U/L (40-130) 05/07/24 12:49 Total Protein 7.4 g/dL (6.6-8.7) 05/07/24 12:49 Albumin 4.9 g/dL (3.5-5.2) 05/07/24 12:49 Globulin 2.5 g/dL (1.3-4.6) 05/07/24 12:49 Valproic Acid 2.8 ug/mL (50-100) L 05/07/24 12:49 All radiology interpretation(s) finalized by discharge EKG Data EKG 1: I personally reviewed and interpreted this EKG as follows: EKG interpretation date: 05/07/24 EKG interpretation time: 12:26 Interpretation: SINUS TACH HR [address] ELEVATION QRS 89 QTC 370 Discharge Plan Discharge Patient Disposition: Home Clinical Impression: History of seizure disorder, Weakness Condition: Stable Prescriptions: No Action aripiprazole 15 mg tablet 7.5 mg PO BEDTIME Qty: 60 4RF Rx Instructions: 340b multivitamin with folic acid [Thera] 400 mcg Tablet 1 tab PO DAILY 30 Days Qty: 30 0RF thiamine mononitrate (vit B1) [Vitamin B-1 (mononitrate)] 100 mg Tablet 100 mg PO DAILY 30 Days Qty: 30 0RF clobazam 10 mg tablet 25 mg PO BID 30 Days Qty: 150 0RF lamotrigine [Lamictal] 150 mg tablet 75 mg PO BID 30 Days Qty: 30 0RF oxcarbazepine 600 mg tablet 900 mg PO BID 30 Days Qty: 90 0RF divalproex [Depakote] 500 mg tablet,delayed release (DR/EC) 750 mg PO BID 30 Days Qty: 90 0RF Discharge Orders: Discharge ED (Routine); Ordered 05/07/24 Ordered By: Carlos Stanley Discharge Diet: Advance as tolerated Discharge Activity: Resume usual activity Patient Instructions: Weakness (ED) Coding Level of Care Code ED Thermal Engineer for Neda Chambers
[2024-05-07 12:50] VITALS: BP 148/97; PULSE 63; O2SAT 97
[2024-05-07] MEDS: LORazepam 2 mg/mL INJ 1 mL IM (12:52)
[2024-05-07] MEDS: lamoTRIgine 100 mg Tablet PO (12:52)
[2024-05-07] MEDS: sodium chloride 0.9% 1,000 ML 999 ML IV (12:53)
[2024-05-07 12:56] LABS: Basophils % 0.3 %; Eosinophils % 0.1 %; Hematocrit 46.6 % (37-53); Lymphocytes # 3.1 10^3/uL (0.8-4.8); Lymphocytes % 43.2 %; Mean Corpuscular HGB Conc 33.9 g/dL (30-55); Mean Corpuscular Hemoglobin 32.5 pg (27-33); Mean Corpuscular Volume 95.9 fl (82-101); Mean Platelet Volume 11.1 fL (7.4-10.4); Monocytes # 0.4 10^3/uL (0.2-0.9); Monocytes % 5.8 %; Neutrophils # 3.65 10^3/uL (1.8-7.7); Neutrophils % 50.5 %; Nucleated Red Blood Cells % 0 %; Platelet Count 211 10^3/cmm (157-399); Red Blood Count 4.86 10^6/uL (3.85-5.65); Red Cell Distribution Width 11.7 % (12.1-15.1); White Blood Count 7.23 10^3/uL (3.29-11.43)
[2024-05-07 13:12] LABS: Alanine Aminotransferase 24 U/L (0-41); Albumin Level 4.9 g/dL (3.5-5.2); Alkaline Phosphatase 59 U/L (40-130); Anion Gap 19.8 (5-19); Aspartate Amino Transferase 17 U/L (0-40); Blood Urea Nitrogen 8 mg/dL (6-20); Calcium 9.4 mg/dL (8.5-10.5); Carbon Dioxide 24 mmol/L (22-29); Chloride 100 mmol/L (98-107); Creatinine Clr Calc Pharmacy 149.6613; Globulin 2.5 g/dL (1.3-4.6); Glomerular Filtration Rate 131.5 mL/min (90-130); Glucose 116 mg/dL (65-115); Osmolality Calculated 289 mOsm/kg (285-295); Potassium 3.8 mmol/L (3.5-5.1); Sodium 140 mmol/L (136-145); Total Bilirubin 0.5 mg/dL (0.15-1.2); Total Protein 7.4 g/dL (6.6-8.7)
[2024-05-07 13:20] LABS: Valproic Acid Level 2.8 ug/mL (50-100)
[2024-05-07] MEDS: divalproex ER 500 mg Tablet (24H) 1000 MG PO (13:42)
[2024-05-07 13:43] VITALS: BP 120/69; PULSE 69; O2SAT 100
[2024-05-07 14:39] VITALS: BP 120/69; PULSE 65; O2SAT 99
== END 2024-05-07 14:40 | disposition home or self-care (01) ==
PROVIDERS: Emergency Provider Emergency Medicine
DX: R53.1 Weakness (principal); G40.909 Epilepsy, unspecified, not intractable, without status epilepticus; R00.0 Tachycardia, unspecified; F17.290 Nicotine dependence, other tobacco product, uncomplicated
CPT/HCPCS: 80053; 80164; 85025; 93005; 96372; 99284; J2060; J7030

== ENCOUNTER 2024-05-09 22:55 | Emergency (ER) | payer MEDICAID, SELFPAY ==
[2024-05-08 10:02] VITALS: BP 120/69
[2024-05-09 22:56] VITALS: BP 134/76; PULSE 82; RESP 16; TEMP 36.8; O2SAT 97; BMI 19.3
[2024-05-09 23:03] VITALS: BP 117/86; PULSE 79; RESP 16; O2SAT 96
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
--- NOTE | 2024-05-09 23:23 | CTR_ITS ---
PROCEDURE INFORMATION: Exam: CT Head Without Contrast Exam date and time: 05/09/2024 11:52 PM Age: 33 years old Clinical indication: Injury or trauma; Fall; Blunt trauma (contusions or hematomas); Without loss of consciousness; Additional info: Head injury TECHNIQUE: Imaging protocol: Computed tomography of the head without contrast. Radiation optimization: All CT scans at this facility use at least one of these dose optimization techniques: automated exposure control; mA and/or kV adjustment per patient size (includes targeted exams where dose is matched to clinical indication); or iterative reconstruction. COMPARISON: MR head wo con* [id number] 05/03/2024 2:21 PM RADIATION DOSE METRICS: Total DLP (mGy-cm): 1121.89 FINDINGS: Brain: No hemorrhage. No edema, mass effect or midline shift. Cerebral ventricles: No ventriculomegaly. Paranasal sinuses: Visualized sinuses are unremarkable. No fluid levels. Mastoid air cells: No mastoid effusion. Bones: Unremarkable. No acute fracture. Soft tissues: Left frontal scalp edema. CT/CT head wo con* [id number] IMPRESSION: Left frontal scalp edema. No acute intracranial abnormality.
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
[2024-05-09] MEDS: tetanus-dipt-pertussis 0.5 mL SDV IM (23:50)
[2024-05-10] MEDS: bacitracin ointment Pkt 3 EACH TOPICAL (00:16)
[2024-05-10 00:34] VITALS: BP 95/68; PULSE 66; O2SAT 98
[2024-05-10 01:37] VITALS: BP 113/71; PULSE 65; O2SAT 98
[2024-05-10 01:43] VITALS: BP 113/71; PULSE 74; RESP 18; O2SAT 100
== END 2024-05-10 01:45 | disposition home or self-care (01) ==
PROVIDERS: Emergency Provider Nurse Practitioner Family
DX: S00.31XA Abrasion of nose, initial encounter (principal); S00.212A Abrasion of left eyelid and periocular area, initial encounter; F17.290 Nicotine dependence, other tobacco product, uncomplicated; W18.09XA Striking against other object with subsequent fall, initial encounter; Z23 Encounter for immunization
CPT/HCPCS: 70450; 72125; 90471; 90715; 99284; A6446

== ENCOUNTER 2024-06-07 21:57 | Emergency (ER) | payer MEDICAID, SELFPAY ==
[2024-05-08 10:02] VITALS: BP 120/69
[2024-06-07 22:01] VITALS: BP 117/72; PULSE 61; RESP 16; TEMP 36.6; O2SAT 95
--- NOTE | 2024-06-07 23:15 | XRR_ITS ---
PROCEDURE INFORMATION: Exam: XR Chest Exam date and time: 06/07/2024 11:26 PM Age: 34 years old Clinical indication: Patient HX: AMS; Post seizure; Nausea/vomiting; Cough TECHNIQUE: Imaging protocol: Radiologic exam of the chest. Views: 1 view. COMPARISON: CT chest abdpel w/*[id number] 04/15/2024 1:56 PM FINDINGS: Lungs: No consolidation. Similar hyperinflated lungs. Pleural spaces: No pleural effusion. No pneumothorax. Heart/Mediastinum: No cardiomegaly. Bones/joints: No acute findings. XR/XR chest 1V portable [id number] IMPRESSION: No acute chest findings.
--- NOTE | 2024-06-07 23:29 | W.ED.SEIZURE ---
HPI - Seizure General: Chief Complaint: Seizure Stated Complaint: post seizure Time Seen by Provider: 06/07/24 23:14 History of Present Illness: HPI Narrative: 34-year-old male with a history of seizure disorder, history of noncompliance to seizure medications, alcohol use. He presents with a seizure that happened at night. He was allowed to go to triage, where he had another seizure. He appears to be somewhat confused now and postictal. He did say that he had some head pressure following his procedure. No injuries noted. Seizure History: Yes Related Data Previous Rx's Medication Instructions Recorded aripiprazole 15 mg tablet 7.5 mg (1/2 x 15 mg) PO BEDTIME 05/15/23 #60 tabs bacitracin 500 unit/gram topical 1 applic topical BID #30 grams 05/09/24 ointment Allergies Allergy/AdvReac Type Severity Reaction Status Date / Time No Known Allergies Allergy Verified 03/26/24 09:47 [facility] ED PFSH: Medical History History of seizure disorder Suicidal ideation Acute psychosis Elevated lactic acid level Rhabdomyolysis Leukocytosis Acute encephalopathy Seizures Bipolar disorder Psychiatric care Seizure Family History Grandmother Hyperlipidemia Hypertension Mother Lupus Other Cancer Stroke Denies family history of Diabetes CAD (coronary artery disease) Clotting disorder Psychiatric illness Chronic kidney disease (CKD) Anesthesia complication Bleeding disorder Lung disease Social History Smoking and tobacco/nicotine status: current every day tobacco/nicotine user e-cigarettes E-Cigarette Details: vaporizer device E-cig/vape details: rare but if someone has some in a flavor i like. Second hand smoke exposure: Yes Alcohol intake: former Substance/Drug Use: current Substance/Drug use frequency: daily Adopted: No Caregiver/support person: No Lives independently: Yes Household members: none Housing: Apartment Marital status: Single Number of children: 0 Highest education level completed: High School Graduate service: No Current occupational status: unemployed Current occupational exposures/hazards: No Pets and animals: No Leisure activites: exercise, games and other Leisure activities details: video games, cards, bike rides Sexually active: No Current gender identity: Male Veronica/Mosque: Druze Special veronica needs: No Agree to transfusion: Yes Physical Exam Const: COMMON NORMALS: no acute distress GENERAL APPEARANCE: cooperative; not ill appearing and not frail appearing HENMT: COMMON NORMALS: normocephalic, atraumatic and Normal external nose present HEAD & SCALP: normocephalic and atraumatic FACE & SINUS: normal facial exam and face symmetric NOSE: Normal external nose present Eye: COMMON NORMALS: Equal, round and reactive pupils present and EOMs intact bilaterally PUPIL: Yes Equal, round and reactive pupils present Neck/C-Spine: GENERAL: Yes trachea midline Chest: CHEST: Yes Symmetrical chest wall rise Resp: COMMON NORMALS: normal respiratory effort, No retractions, No use of accessory muscles and clear to auscultation bilaterally AUSCULTATION: clear to auscultation bilaterally Cardio: COMMON NORMALS: regular rate and regular rhythm RATE: regular rate RHYTHM: regular rhythm GI: COMMON NORMALS: Normal to inspection, nondistended, normoactive bowel sounds present Extremity: COMMON NORMALS: no pedal edema Neuro: BABATUNDE COMA SCALE: document GCS findings Mcdaniels coma scale eye opening: Spontaneous Babatunde coma scale verbal response: Orientated Babatunde coma scale motor response: Obey commands Mcdaniels coma scale total score: 15 SENSORY EXAM: Yes extremities (intact) Psych: COMMON NORMALS: speech normal SPEECH: Yes normal speech Skin: COMMON NORMALS: no rashes or lesions noted GENERAL SKIN EXAM: no rashes or lesions noted Course Vital Signs: Vital signs: Vital Signs Temperature 97.9 F 06/07/24 22:01 Pulse Rate 93 06/08/24 02:01 Respiratory Rate 14 06/08/24 02:01 Blood Pressure 125/71 06/08/24 02:01 Pulse Oximetry 95 06/08/24 02:01 Oxygen Delivery Me thod Room Air 06/08/24 01:27 MDM - Seizure MDM Narrative Medical decision making narrative: Patient is essentially back to baseline at this point. He has no complaints. He was given IV fluid. CK level is mildly elevated. White blood cell count is 13, both likely related to seizure. Alcohol is nondetectable. Chest x-ray is nonacute. Seizures likely due to noncompliance with seizure medications, as the patient admits this. He states that he does have seizure medication at home. He will be discharged for outpatient follow-up. He was loaded with Keppra here. Lab Data 06/07/24 02:33 06/07/24 02:33 Labs: Radiology Impressions Chest X-Ray 06/07/24 23:15 IMPRESSION: No acute chest findings. Laboratory Results WBC 12.93 10^3/uL (3.29-11.43) H 06/07/24 02:33 RBC 4.90 10^6/uL (3.85-5.65) 06/07/24 02:33 Hgb 15.70 g/dL (11.27-16.99) 06/07/24 02:33 Hct 47.0 % (37-53) 06/07/24 02:33 MCV 95.9 fl (82-101) 06/07/24 02:33 MCH 32.0 pg (27-33) 06/07/24 02:33 MCHC 33.4 g/dL (30-55) 06/07/24 02:33 RDW 11.7 % (12.1-15.1) L 06/07/24 02:33 Plt Count 265 10^3/cmm (157-399) 06/07/24 02:33 MPV 9.8 fL (7.4-10.4) 06/07/24 02:33 Neut % (Auto) 78.9 % 06/07/24 02:33 Lymph % (Auto) 14.7 % 06/07/24 02:33 Nolan % (Auto) 6.0 % 06/07/24 02:33 Eos % (Auto) 0.0 % 06/07/24 02:33 Baso % (Auto) 0.2 % 06/07/24 02:33 Neut # (Auto) 10.20 10^3/uL (1.8-7.7) H 06/07/24 02:33 Lymph # (Auto) 1.9 10^3/uL (0.8-4.8) 06/07/24 02:33 Nolan # (Auto) 0.8 10^3/uL (0.2-0.9) 06/07/24 02:33 Eos # (Auto) 0.0 10^3/uL (0.0-0.8) 06/07/24 02:33 Baso # (Auto) 0.0 10^3/uL (0.0-0.1) 06/07/24 02:33 Nucleated RBC % (auto) 0 % 06/07/24 02:33 Nucleated RBCs # 0.0 /100WBC 06/07/24 02:33 Sodium 140 mmol/L (136-145) 06/07/24 02:33 Potassium 3.8 mmol/L (3.5-5.1) 06/07/24 02:33 Chloride 98 mmol/L (98-107) 06/07/24 02:33 Carbon Dioxide 18 mmol/L (22-29) L 06/07/24 02:33 Anion Gap 27.8 (5-19) H 06/07/24 02:33 BUN 13 mg/dL (6-20) 06/07/24 02:33 Creatinine 0.9 mg/dL (0.7-1.2) 06/07/24 02:33 GFR Calculation 97.8 mL/min (90-130) 06/07/24 02:33 Glucose 128 mg/dL (65-115) H 06/07/24 02:33 Calculated Osmolality 292 mOsm/kg (285-295) 06/07/24 02:33 Calcium 9.9 mg/dL (8.5-10.5) 06/07/24 02:33 Phosphorus 4.5 mg/dL (2.5-4.5) 06/07/24 02:33 Magnesium 2.3 mg/dL (1.7-2.3) 06/07/24 02:33 Total Bilirubin 0.4 mg/dL (0.15-1.2) 06/07/24 02:33 AST 28 U/L (0-40) 06/07/24 02:33 ALT 53 U/L (0-41) H 06/07/24 02:33 Alkaline Phosphatase 70 U/L (40-130) 06/07/24 02:33 Creatine Kinase 377 U/L (39-308) H* 06/07/24 02:33 Total Protein 8.1 g/dL (6.6-8.7) 06/07/24 02:33 Albumin 5.4 g/dL (3.5-5.2) H 06/07/24 02:33 Globulin 2.7 g/dL (1.3-4.6) 06/07/24 02:33 Valproic Acid 2.8 ug/mL (50-100) L 06/07/24 02:33 Ethyl Alcohol < 10 mg/dL (0-10) 06/07/24 02:33 All radiology interpretation(s) finalized by discharge Discharge Plan Discharge Patient Disposition: Home Clinical Impression: Epileptic seizure Condition: Stable Prescriptions: No Action aripiprazole 15 mg tablet 7.5 mg PO BEDTIME Qty: 60 4RF Rx Instructions: 340b bacitracin 500 unit/gram ointment 1 applic topical BID Qty: 30 1RF Discharge Orders: Discharge ED (Routine); Ordered 06/08/24 Ordered By: Eleazar Andre Patient Instructions: Recurrent Seizures in Adults (ED), Opioid Safety, Pain Management Activity Restrictions/Additional Instructions: Call your doctor this week for follow-up appointment. Make sure you are taking her medication appropriately. stay hydrated. Return for concerning symptoms. Coding Level of Care Code ED Care Connector for Neda Chambers
[2024-06-07] MEDS: sodium chloride 0.9% 1,000 ML 999 ML IV (23:40)
[2024-06-07] MEDS: ondansetron 2 mg/ML SDV 2 mL 4 MG IVP (23:41)
[2024-06-07] MEDS: levETIRAcetam 750 MG in sodium chloride 0.9% (100 ml) 100 ML 430 MG IV (23:43)
[2024-06-07 23:45] VITALS: BP 107/62; PULSE 69; RESP 12; O2SAT 94
[2024-06-07 23:46] LABS: Basophils % 0.2 %; Lymphocytes # 1.9 10^3/uL (0.8-4.8); Lymphocytes % 14.7 %; Mean Corpuscular HGB Conc 33.4 g/dL (30-55); Mean Corpuscular Volume 95.9 fl (82-101); Mean Platelet Volume 9.8 fL (7.4-10.4); Monocytes # 0.8 10^3/uL (0.2-0.9); Neutrophils % 78.9 %; Nucleated Red Blood Cells % 0 %; Platelet Count 265 10^3/cmm (157-399); Red Cell Distribution Width 11.7 % (12.1-15.1); White Blood Count 12.93 10^3/uL (3.29-11.43)
[2024-06-08 00:13] LABS: Alanine Aminotransferase 53 U/L (0-41); Albumin Level 5.4 g/dL (3.5-5.2); Alcohol Level < 10 mg/dL (0-10); Alkaline Phosphatase 70 U/L (40-130); Anion Gap 27.8 (5-19); Aspartate Amino Transferase 28 U/L (0-40); Blood Urea Nitrogen 13 mg/dL (6-20); Calcium 9.9 mg/dL (8.5-10.5); Carbon Dioxide 18 mmol/L (22-29); Chloride 98 mmol/L (98-107); Creatinine Clr Calc Pharmacy 115.3353; Globulin 2.7 g/dL (1.3-4.6); Glomerular Filtration Rate 97.8 mL/min (90-130); Glucose 128 mg/dL (65-115); Magnesium 2.3 mg/dL (1.7-2.3); Osmolality Calculated 292 mOsm/kg (285-295); Phosphorus 4.5 mg/dL (2.5-4.5); Potassium 3.8 mmol/L (3.5-5.1); Sodium 140 mmol/L (136-145); Total Bilirubin 0.4 mg/dL (0.15-1.2); Total Protein 8.1 g/dL (6.6-8.7)
[2024-06-08 00:14] LABS: Creatine Phosphokinase 377 U/L (39-308)
[2024-06-08 00:16] VITALS: BP 125/70; PULSE 75; RESP 12; O2SAT 100
[2024-06-08 00:40] LABS: Valproic Acid Level 2.8 ug/mL (50-100)
[2024-06-08 01:27] VITALS: BP 124/69; PULSE 73; RESP 12; O2SAT 98
[2024-06-08 02:01] VITALS: BP 125/71; PULSE 93; RESP 14; O2SAT 95
== END 2024-06-08 02:02 | disposition home or self-care (01) ==
PROVIDERS: Emergency Provider Emergency Medicine
DX: G40.909 Epilepsy, unspecified, not intractable, without status epilepticus (principal); Z91.148 Patient's other noncompliance with medication regimen for other reason
CPT/HCPCS: 36415; 71045; 80053; 80164; 80307; 82550; 83735; 84100; 85025; 96365; 96375; 99284; J1953; J2405; J7030

== ENCOUNTER 2024-06-12 05:02 | Emergency (ER) | payer MEDICAID, SELFPAY ==
[2024-05-08 10:02] VITALS: BP 120/69
[2024-06-12 05:03] VITALS: BMI 20.7
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
[2024-06-12 05:09] VITALS: BP 136/84; PULSE 79; RESP 18; TEMP 36.9; O2SAT 100
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
[2024-06-12 05:34] LABS: Basophils % 0.2 %; Eosinophils % 0.4 %; Hematocrit 40.7 % (37-53); Lymphocytes # 2.9 10^3/uL (0.8-4.8); Mean Corpuscular HGB Conc 33.9 g/dL (30-55); Mean Corpuscular Hemoglobin 31.9 pg (27-33); Mean Corpuscular Volume 94.2 fl (82-101); Mean Platelet Volume 10.1 fL (7.4-10.4); Monocytes # 0.3 10^3/uL (0.2-0.9); Neutrophils # 2.28 10^3/uL (1.8-7.7); Neutrophils % 41.2 %; Nucleated Red Blood Cells % 0 %; Platelet Count 208 10^3/cmm (157-399); Red Blood Count 4.32 10^6/uL (3.85-5.65); Red Cell Distribution Width 11.3 % (12.1-15.1); White Blood Count 5.52 10^3/uL (3.29-11.43)
[2024-06-12 05:39] VITALS: BP 121/82; PULSE 60; O2SAT 99
[2024-06-12 05:48] LABS: Anion Gap 18.3 (5-19); Blood Urea Nitrogen 11 mg/dL (6-20); Carbon Dioxide 24 mmol/L (22-29); Chloride 102 mmol/L (98-107); Creatinine Clr Calc Pharmacy 150.2323; Glomerular Filtration Rate 130.7 mL/min (90-130); Glucose 104 mg/dL (65-115); Potassium 3.3 mmol/L (3.5-5.1); Sodium 141 mmol/L (136-145)
[2024-06-12 05:49] LABS: Alanine Aminotransferase 34 U/L (0-41); Albumin Level 4.7 g/dL (3.5-5.2); Alcohol Level 274 mg/dL (0-10); Alkaline Phosphatase 53 U/L (40-130); Aspartate Amino Transferase 30 U/L (0-40); Calcium 8.5 mg/dL (8.5-10.5); Globulin 1.8 g/dL (1.3-4.6); Osmolality Calculated 292 mOsm/kg (285-295); Total Bilirubin 0.2 mg/dL (0.15-1.2); Total Protein 6.5 g/dL (6.6-8.7)
[2024-06-12 06:09] VITALS: BP 108/65; PULSE 53; O2SAT 96
[2024-06-12 06:18] LABS: Lactic Sepsis W/Reflex 4.6 mmol/L (0.5-2.2)
[2024-06-12 06:30] VITALS: BP 110/70; PULSE 54; O2SAT 98
[2024-06-12 07:12] LABS: Reflex Lactate Order REFLEX LACTIC ORDERD
--- NOTE | 2024-06-12 07:18 | PC.PHAR ---
patient not conscious/sober enough to answer what meds he takes, pharmacy opens at 8am will follow up when they open. used external med list of all current meds to do med rec
[2024-06-12] MEDS: haloperidol inj 5 mg/mL INJ 1 mL IVP (07:41)
[2024-06-12] MEDS: LORazepam 2 mg/mL INJ 1 mL 1 MG IVP (07:41)
[2024-06-12 09:00] LABS: Lactic Acid level (Lactate) 3.8 mmol/L (0.5-2.2)
--- NOTE | 2024-06-12 11:09 | PC.NURSE ---
this nurse assumed pt care at 1105.
== END 2024-06-12 13:25 | disposition home or self-care (01) ==
PROVIDERS: Emergency Medicine; Emergency Provider Family Medicine
DX: S02.2XXA Fracture of nasal bones, initial encounter for closed fracture (principal); F10.129 Alcohol abuse with intoxication, unspecified; Y90.8 Blood alcohol level of 240 mg/100 ml or more; Y04.8XXA Assault by other bodily force, initial encounter; F17.290 Nicotine dependence, other tobacco product, uncomplicated
CPT/HCPCS: 36415; 70450; 70486; 72125; 80053; 80307; 83605; 85025; 96374; 96375; 99285; J1630; J2060

== ENCOUNTER 2024-06-22 15:36 | Outpatient (CLI) | payer MEDICAID, SELFPAY ==
[2024-05-08 10:02] VITALS: BP 120/69
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
== END 2024-06-22 15:37 | disposition home or self-care (01) ==
LOC: RAD 15:37
PROVIDERS: PCP Family Medicine; Visit Provider Family Medicine
DX: M25.522 Pain in left elbow (principal)
CPT/HCPCS: 73080

== ENCOUNTER 2024-06-28 14:46 | Emergency (ER) | payer MEDICAID, SELFPAY ==
[2024-05-08 10:02] VITALS: BP 120/69
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
[2024-06-28 14:50] VITALS: BP 128/79; PULSE 74; RESP 14; TEMP 36.8; O2SAT 100
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
[2024-06-28] MEDS: HYDROcodone-acetaminophen 5-325 mg Tablet 1 TAB PO (15:41)
[2024-06-28 16:20] VITALS: BP 117/69; PULSE 71; RESP 16; O2SAT 98
== END 2024-06-28 16:22 | disposition home or self-care (01) ==
PROVIDERS: Emergency Provider Emergency Medicine; PCP Family Medicine
DX: S90.32XA Contusion of left foot, initial encounter (principal); Z87.891 Personal history of nicotine dependence; X58.XXXA Exposure to other specified factors, initial encounter; Y93.55 Activity, bike riding
CPT/HCPCS: 73610; 73630; 99283

== ENCOUNTER 2024-09-28 15:03 | Emergency (ER) | payer MEDICAID, SELFPAY ==
[2024-05-08 10:02] VITALS: BP 120/69
[2024-09-28 15:36] VITALS: BP 121/79; PULSE 61; TEMP 36.6; O2SAT 98
--- NOTE | 2024-09-28 16:00 | W.ED.RECABL ---
Documented by User: GARY Vail 09/28/24 16:39 HPI - Recheck/Abnormal Lab/Rx General: Chief Complaint: General Medical Stated Complaint: refill on meds Time Seen by Provider: 09/28/24 15:44 Source: patient Mode of arrival: ambulatory Limitations: no limitations History of Present Illness: Patient is a 34-year-old male is well-known here to our emergency department here for refills of some of his medications. He is requesting refills on his Keppra and Lamictal. He takes these for epilepsy. He states he has a follow-up appoint with his neurologist next week in [place] that his mother is planning on taking him to. He has no other complaints or requests at this time. MD complaint: medication refill request Symptoms since prior visit: no new symptoms Associated symptoms: none Related Data Home Medications ?Medication ?Instructions ?Recorded ?Confirmed oxcarbazepine 300 mg tablet 900 mg PO BID 06/12/24 07/13/24 Previous Rx's ?Medication ?Instructions ?Recorded diclofenac sodium 1 % topical gel 4 g topical QID #100 grams 06/22/24 (Voltaren Arthritis Pain) divalproex 500 mg tablet,delayed 500 mg PO BID #180 tabs 07/13/24 release clobazam 10 mg tablet 25 mg (2.5 x 10 mg) PO BID #180 07/20/24 tabs lamotrigine 100 mg tablet 100 mg PO BID #60 tabs 09/28/24 levetiracetam 500 mg tablet 500 mg PO BID #60 tabs 09/28/24 Allergies Allergy/AdvReac Type Severity Reaction Status Date / Time No Known Allergies Allergy Verified 09/28/24 15:41 Review of Systems Const: Denies: fever(s), chills, body aches, fatigue or malaise Eyes: Denies: change in vision Card: Denies: chest pain Resp: Denies: dyspnea GI: Denies: abdominal pain, nausea, vomiting or diarrhea Musc: Denies: neck pain, back pain, extremity pain, extremity swelling, joint swelling or joint redness Skin/Breast: Denies: rash Neuro: Denies: headache(s), numbness in extremities, weakness in extremities, sensory changes or dizziness PFS ED PFSH: Medical History Alcohol use disorder History of seizure disorder Suicidal ideation Acute psychosis Elevated lactic acid level Rhabdomyolysis Leukocytosis Acute encephalopathy Seizures Bipolar disorder Seizure Family History Grandmother Hyperlipidemia Hypertension Mother Lupus Other Cancer Stroke Denies family history of Diabetes CAD (coronary artery disease) Clotting disorder Psychiatric illness Chronic kidney disease (CKD) Anesthesia complication Bleeding disorder Lung disease Social History Smoking and tobacco/nicotine status: former use of tobacco/nicotine Second hand smoke exposure: Yes Alcohol intake: former Substance/Drug Use: current Substance/Drug use frequency: daily Adopted: No Caregiver/support person: No Lives independently: Yes Household members: none Housing: Apartment Marital status: Single Number of children: 0 Highest education level completed: High School Graduate service: No Current occupational status: unemployed Current occupational exposures/hazards: No Pets and animals: No Leisure activites: exercise, games and other Leisure activities details: video games, cards, bike rides Sexually active: No Current gender identity: Male Veronica/Buddhist: Hindu Special veronica needs: No Agree to transfusion: Yes Physical Exam Const: COMMON NORMALS: no acute distress, average body habitus, patient oriented x3, no limitations, healthy appearing, alert and well nourished GENERAL APPEARANCE: cooperative ORIENTATION/CONSCIOUSNESS: Yes awake, Yes oriented to person, Yes oriented to place and Yes oriented to time HENMT: COMMON NORMALS: normocephalic and atraumatic HEAD & SCALP: normal to inspection, normocephalic and atraumatic FACE & SINUS: normal facial exam Eye: GENERAL EYE: appearance normal, both eyes and all related structures and normal light reflex DIRECT OPHTHALMOSCOPY: Yes normal light reflex Chest: COMMONS NORMALS: normal inspection of the chest and normal palpation of entire chest wall Resp: COMMON NORMALS: normal respiratory effort and clear to auscultation bilaterally AUSCULTATION: clear to auscultation bilaterally Cardio: COMMON NORMALS: regular rate and regular rhythm RATE: regular rate RHYTHM: regular rhythm Extremity: GENERAL: Yes normal exam except as noted Neuro: COMMON NORMALS: patient oriented x3, moves all extremities, no focal motor deficits, no sensory deficits noted and gait normal SENSORIUM/ORIENTATION: Yes alert, Yes oriented to person, Yes oriented to place and Yes oriented to time Skin: COMMON NORMALS: no rashes or lesions noted GENERAL SKIN EXAM: no rashes or lesions noted Course Vital Signs: Vital signs: Vital Signs Temperature 97.8 F 09/28/24 15:36 Pulse Rate 61 09/28/24 15:36 Blood Pressure 121/79 09/28/24 15:36 Pulse Oximetry 98 09/28/24 15:36 Oxygen Delivery Me thod Room Air 09/28/24 15:36 MDM - Recheck/Abnormal Lab/Rx Medical Decision Making Patient came in for a medication refill. I had patient ready for discharge when he began having altered mental status. He threatened some of our staff, he was walking aimlessly over 2 other vertical flow cubicles, he appeared drowsy and unsteady on his feet. He was able to intermittently wake up and answer all of my questions appropriately. At okay point I did ambulate patient up and down the ly and he did okay. He states he rides a bike and I am concerned about his safety if he were to leave the emergency department. We did check a blood sugar and it was 84. Nurse checked a blood pressure and it was noted to be 90s over 50s. At this point, I would feel better if patient stayed for some labs and IV fluids. I did ask patient if we can get him to eat and drink several times but he declined. He does state he has not ate all day. Differential Diagnosis Likely encounter for medication refill Medical Records I reviewed the patient's medical records. Lab Data 09/28/24 17:12 09/28/24 17:12 Laboratory Results WBC 5.82 10^3/uL (3.29-11.43) 09/28/24 17:12 RBC 3.95 10^6/uL (3.85-5.65) 09/28/24 17:12 Hgb 12.90 g/dL (11.27-16.99) 09/28/24 17:12 Hct 37.9 % (37-53) 09/28/24 17:12 MCV 95.9 fl (82-101) 09/28/24 17:12 MCH 32.7 pg (27-33) 09/28/24 17:12 MCHC 34.0 g/dL (30-55) 09/28/24 17:12 RDW 12.0 % (12.1-15.1) L 09/28/24 17:12 Plt Count 179 10^3/cmm (157-399) 09/28/24 17:12 MPV 10.7 fL (7.4-10.4) H 09/28/24 17:12 Neut % (Auto) 56.0 % 09/28/24 17:12 Lymph % (Auto) 36.4 % 09/28/24 17:12 [place] % (Auto) 6.9 % 09/28/24 17:12 Eos % (Auto) 0.2 % 09/28/24 17:12 Baso % (Auto) 0.3 % 09/28/24 17:12 Neut # (Auto) 3.26 10^3/uL (1.8-7.7) 09/28/24 17:12 Lymph # (Auto) 2.1 10^3/uL (0.8-4.8) 09/28/24 17:12 [place] # (Auto) 0.4 10^3/uL (0.2-0.9) 09/28/24 17:12 Eos # (Auto) 0.0 10^3/uL (0.0-0.8) 09/28/24 17:12 Baso # (Auto) 0.0 10^3/uL (0.0-0.1) 09/28/24 17:12 Nucleated RBC % (auto) 0 % 09/28/24 17: Nucleated RBCs # 0.0 /100WBC 09/28/24 17:12 Sodium 141 mmol/L (136-145) 09/28/24 17:12 Potassium 4.4 mmol/L (3.5-5.1) 09/28/24 17:12 Chloride 104 mmol/L (98-107) 09/28/24 17:12 Carbon Dioxide 27 mmol/L (22-29) 09/28/24 17:12 Anion Gap 14.4 (5-19) 09/28/24 17:12 BUN 12 mg/dL (6-20) 09/28/24 17:12 Creatinine 0.6 mg/dL (0.7-1.2) L 09/28/24 17:12 GFR Calculation 156.1 mL/min (90-130) H 09/28/24 17:12 Glucose 83 mg/dL (65-115) 09/28/24 17:12 POC Glucose 84 mg/dL (70-110) 09/28/24 16:23 Calculated Osmolality 291 mOsm/kg (285-295) 09/28/24 17:12 Calcium 9.2 mg/dL (8.5-10.5) 09/28/24 17:12 Total Bilirubin 0.2 mg/dL (0.15-1.2) 09/28/24 17:12 AST 11 U/L (0-40) 09/28/24 17:12 ALT 10 U/L (0-41) 09/28/24 17:12 Alkaline Phosphatase 46 U/L (40-130) 09/28/24 17:12 Total Protein 6.8 g/dL (6.6-8.7) 09/28/24 17:12 Albumin 4.7 g/dL (3.5-5.2) 09/28/24 17:12 Globulin 2.1 g/dL (1.3-4.6) 09/28/24 17:12 Salicylates < 0.3 mg/dL (3-10) L 09/28/24 17:12 Acetaminophen < 5.0 ug/mL (10-30) L 09/28/24 17:12 Ethyl Alcohol < 10 mg/dL (0-10) 09/28/24 17:12 No radiology studies performed this visit Discharge Plan Discharge Patient Disposition: Home Clinical Impression: Medication refill Condition: Stable Prescriptions: Continued lamotrigine 100 mg tablet 100 mg PO BID Qty: 60 0RF Rx Instructions: 340b levetiracetam 500 mg tablet 500 mg PO BID Qty: 60 0RF No Action diclofenac sodium [Voltaren Arthritis Pain] 1 % gel 4 g topical QID Qty: 100 0RF Rx Instructions: apply to single knee, ankle, foot; for foot includes sole/toes/top of foot divalproex 500 mg tablet,delayed release (DR/EC) 500 mg PO BID Qty: 180 1RF clobazam 10 mg tablet 25 mg PO BID Qty: 180 0RF oxcarbazepine 300 mg tablet 900 mg PO BID Discharge Orders: Discharge ED (Routine); Ordered 09/28/24 Ordered By: Rhys Cohen Referrals: Vaisler,Jcarlos, MD [Primary Care Provider] - Activity Restrictions/Additional Instructions: As we discussed, please follow-up with neurology and/or your primary care provider for any further refills of your medications. Please return with any new or concerning symptoms that you have. Continue taking prescribed medications. Print Language: Nicaraguan Sign Out Sign Out Data: Patient Sign Out occurred on 09/28/24 at 17:11. Patient's care was discussed, and care was transferred from GARY Vail to GARY Chandra. Coding Level of Care Code ED Android Ui Developer for Chg Fwd Documented by User: GARY Chandra 09/28/24 19:27 HPI - Recheck/Abnormal Lab/Rx General: Chief Complaint: General Medical Stated Complaint: refill on meds Time Seen by Provider: 09/28/24 15:44 Related Data Home Medications ?Medication ?Instructions ?Recorded ?Confirmed oxcarbazepine 300 mg tablet 900 mg PO BID 06/12/24 07/13/24 Previous Rx's ?Medication ?Instructions ?Recorded diclofenac sodium 1 % topical gel 4 g topical QID #100 grams 06/22/24 (Voltaren Arthritis Pain) divalproex 500 mg tablet,delayed 500 mg PO BID #180 tabs 07/13/24 release clobazam 10 mg tablet 25 mg (2.5 x 10 mg) PO BID #180 07/20/24 tabs lamotrigine 100 mg tablet 100 mg PO BID #60 tabs 09/28/24 levetiracetam 500 mg tablet 500 mg PO BID #60 tabs 09/28/24 Allergies Allergy/AdvReac Type Severity Reaction Status Date / Time No Known Allergies Allergy Verified 09/28/24 15:41 PFSH ED PFSH: Medical History Alcohol use disorder History of seizure disorder Suicidal ideation Acute psychosis Elevated lactic acid level Rhabdomyolysis Leukocytosis Acute encephalopathy Seizures Bipolar disorder Seizure Family History Grandmother Hyperlipidemia Hypertension Mother Lupus Other Cancer Stroke Denies family history of Diabetes CAD (coronary artery disease) Clotting disorder Psychiatric illness Chronic kidney disease (CKD) Anesthesia complication Bleeding disorder Lung disease Social History Smoking and tobacco/nicotine status: former use of tobacco/nicotine Second hand smoke exposure: Yes Alcohol intake: former Substance/Drug Use: current Substance/Drug use frequency: daily Adopted: No Caregiver/support person: No Lives independently: Yes Household members: none Housing: Apartment Marital status: Single Number of children: 0 Highest education level completed: High School Graduate service: No Current occupational status: unemployed Current occupational exposures/hazards: No Pets and animals: No Leisure activites: exercise, games and other Leisure activities details: video games, cards, bike rides Sexually active: No Current gender identity: Male Veronica/Buddhist: Hindu Special veronica needs: No Agree to transfusion: Yes Course Vital Signs: Vital signs: Vital Signs Temperature 97.8 F 09/28/24 15:36 Pulse Rate 61 09/28/24 15:36 Blood Pressure 121/79 09/28/24 15:36 Pulse Oximetry 98 09/28/24 15:36 Oxygen Delivery Me thod Room Air 09/28/24 15:36 MDM - Recheck/Abnormal Lab/Rx Medical Decision Making Patient came in for a medication refill. I had patient ready for discharge when he began having altered mental status. He threatened some of our staff, he was walking aimlessly over 2 other vertical flow cubicles, he appeared drowsy and unsteady on his feet. He was able to intermittently wake up and answer all of my questions appropriately. At okay point I did ambulate patient up and down the ly and he did okay. He states he rides a bike and I am concerned about his safety if he were to leave the emergency department. We did check a blood sugar and it was 84. Nurse checked a blood pressure and it was noted to be 90s over 50s. At this point, I would feel better if patient stayed for some labs and IV fluids. I did ask patient if we can get him to eat and drink several times but he declined. He does state he has not ate all day. The care of this patient was transferred to me by Rica Dominguez PA-C. Initially had presented for medication refill but then showed signs of altered mental status with aggression and difficulty with gait, so he agreed to stay for labs and fluids. All labs were obtained aside from urine drug screening which he refused to give us. However serial rechecks of the patient found his mental status to be at baseline. Discussing disposition with the patient, he had reported to me he is ready to go home and [place] that he can get there safely. Will of course ambulate him prior to evaluating status for discharge, ultimately if this is okay we will discharge him and give him strict return precautions. He does note feeling better after receiving fluids. Lab Data 09/28/24 17:12 09/28/24 17:12 Laboratory Results WBC 5.82 10^3/uL (3.29-11.43) 09/28/24 17:12 RBC 3.95 10^6/uL (3.85-5.65) 09/28/24 17:12 Hgb 12.90 g/dL (11.27-16.99) 09/28/24 17:12 Hct 37.9 % (37-53) 09/28/24 17:12 MCV 95.9 fl (82-101) 09/28/24 17:12 MCH 32.7 pg (27-33) 09/28/24 17:12 MCHC 34.0 g/dL (30-55) 09/28/24 17:12 RDW 12.0 % (12.1-15.1) L 09/28/24 17:12 Plt Count 179 10^3/cmm (157-399) 09/28/24 17:12 MPV 10.7 fL (7.4-10.4) H 09/28/24 17:12 Neut % (Auto) 56.0 % 09/28/24 17:12 Lymph % (Auto) 36.4 % 09/28/24 17:12 [place] % (Auto) 6.9 % 09/28/24 17:12 Eos % (Auto) 0.2 % 09/28/24 17:12 Baso % (Auto) 0.3 % 09/28/24 17: Neut # (Auto) 3.26 10^3/uL (1.8-7.7) 02/17/25 17:12 Lymph # (Auto) 2.1 10^3/uL (0.8-4.8) 09/28/24 17:12 [place] # (Auto) 0.4 10^3/uL (0.2-0.9) 09/28/24 17:12 Eos # (Auto) 0.0 10^3/uL (0.0-0.8) 09/28/24 17:12 Baso # (Auto) 0.0 10^3/uL (0.0-0.1) 09/28/24 17:12 Nucleated RBC % (auto) 0 % 09/28/24 17:12 Nucleated RBCs # 0.0 /100WBC 09/28/24 17:12 Sodium 141 mmol/L (136-145) 09/28/24 17:12 Potassium 4.4 mmol/L (3.5-5.1) 09/28/24 17:12 Chloride 104 mmol/L (98-107) 09/28/24 17:12 Carbon Dioxide 27 mmol/L (22-29) 09/28/24 17:12 Anion Gap 14.4 (5-19) 09/28/24 17:12 BUN 12 mg/dL (6-20) 09/28/24 17:12 Creatinine 0.6 mg/dL (0.7-1.2) L 09/28/24 17:12 GFR Calculation 156.1 mL/min (90-130) H 09/28/24 17:12 Glucose 83 mg/dL (65-115) 09/28/24 17:12 POC Glucose 84 mg/dL (70-110) 09/28/24 16:23 Calculated Osmolality 291 mOsm/kg (285-295) 09/28/24 17:12 Calcium 9.2 mg/dL (8.5-10.5) 09/28/24 17:12 Total Bilirubin 0.2 mg/dL (0.15-1.2) 09/28/24 17:12 AST 11 U/L (0-40) 09/28/24 17:12 ALT 10 U/L (0-41) 09/28/24 17:12 Alkaline Phosphatase 46 U/L (40-130) 09/28/24 17:12 Total Protein 6.8 g/dL (6.6-8.7) 09/28/24 17:12 Albumin 4.7 g/dL (3.5-5.2) 09/28/24 17:12 Globulin 2.1 g/dL (1.3-4.6) 09/28/24 17:12 Salicylates < 0.3 mg/dL (3-10) L 09/28/24 17:12 Acetaminophen < 5.0 ug/mL (10-30) L 09/28/24 17:12 Ethyl Alcohol < 10 mg/dL (0-10) 09/28/24 17:12 Discharge Plan Discharge Patient Disposition: Home Clinical Impression: Medication refill Condition: Stable Prescriptions: Continued lamotrigine 100 mg tablet 100 mg PO BID Qty: 60 0RF Rx Instructions: 340b levetiracetam 500 mg tablet 500 mg PO BID Qty: 60 0RF No Action diclofenac sodium [Voltaren Arthritis Pain] 1 % gel 4 g topical QID Qty: 100 0RF Rx Instructions: apply to single knee, ankle, foot; for foot includes sole/toes/top of foot divalproex 500 mg tablet,delayed release (DR/EC) 500 mg PO BID Qty: 180 1RF clobazam 10 mg tablet 25 mg PO BID Qty: 180 0RF oxcarbazepine 300 mg tablet 900 mg PO BID Discharge Orders: Discharge ED (Routine); Ordered 09/28/24 Ordered By: Rhys Cohen Referrals: Jcarlos Yu MD [Primary Care Provider] - Activity Restrictions/Additional Instructions: As we discussed, please follow-up with neurology and/or your primary care provider for any further refills of your medications. Please return with any new or concerning symptoms that you have. Continue taking prescribed medications. Print Language: Nicaraguan Sign Out Sign Out Data: Patient Sign Out occurred on 09/28/24 at 17:11. Patient's care was discussed, and care was transferred from GARY Vail to GARY Chandra. Coding Level of Care Code ED Android Ui Developer for Neda Chambers
[2024-09-28 16:27] LABS: Glucose Point of Care 84 mg/dL (70-110)
[2024-09-28] MEDS: sodium chloride 0.9% 1,000 ML 999 ML IV (17:15)
[2024-09-28 17:38] LABS: Basophils % 0.3 %; Eosinophils % 0.2 %; Hematocrit 37.9 % (37-53); Lymphocytes # 2.1 10^3/uL (0.8-4.8); Lymphocytes % 36.4 %; Mean Corpuscular Hemoglobin 32.7 pg (27-33); Mean Corpuscular Volume 95.9 fl (82-101); Mean Platelet Volume 10.7 fL (7.4-10.4); Monocytes # 0.4 10^3/uL (0.2-0.9); Monocytes % 6.9 %; Neutrophils # 3.26 10^3/uL (1.8-7.7); Nucleated Red Blood Cells % 0 %; Platelet Count 179 10^3/cmm (157-399); Red Blood Count 3.95 10^6/uL (3.85-5.65); White Blood Count 5.82 10^3/uL (3.29-11.43)
[2024-09-28 18:01] LABS: Alanine Aminotransferase 10 U/L (0-41); Albumin Level 4.7 g/dL (3.5-5.2); Alkaline Phosphatase 46 U/L (40-130); Anion Gap 14.4 (5-19); Aspartate Amino Transferase 11 U/L (0-40); Blood Urea Nitrogen 12 mg/dL (6-20); Calcium 9.2 mg/dL (8.5-10.5); Carbon Dioxide 27 mmol/L (22-29); Chloride 104 mmol/L (98-107); Globulin 2.1 g/dL (1.3-4.6); Glomerular Filtration Rate 156.1 mL/min (90-130); Glucose 83 mg/dL (65-115); Osmolality Calculated 291 mOsm/kg (285-295); Potassium 4.4 mmol/L (3.5-5.1); Sodium 141 mmol/L (136-145); Total Bilirubin 0.2 mg/dL (0.15-1.2); Total Protein 6.8 g/dL (6.6-8.7)
[2024-09-28 18:02] LABS: Acetaminophen < 5.0 ug/mL (10-30); Alcohol Level < 10 mg/dL (0-10); Salicylate < 0.3 mg/dL (3-10)
--- NOTE | 2024-09-28 19:19 | PC.NURSE ---
pt is currently alert and oriented at this time. PA notified
[2024-09-28 19:34] VITALS: BP 118/66; PULSE 60; O2SAT 98
--- NOTE | 2024-09-29 12:56 | PC.NURSE ---
PT CALLED AND STATED THAT HIS IV WAS LEFT IN AFTER HE WAS DISCHARGED LAST NIGHT. PT STATED HE TOOK OUT THE IV HIMSELF AT HOME. NURSE ASSISTANT CHIEF ENGINEER NOTIFIED.
== END 2024-09-28 19:35 | disposition home or self-care (01) ==
PROVIDERS: Physician Assistant; Emergency Provider Physician Assistant; PCP Family Medicine
DX: Z76.0 Encounter for issue of repeat prescription (principal); Z87.891 Personal history of nicotine dependence
CPT/HCPCS: 36415; 36416; 80053; 80175; 80307; 82962; 85025; 96360; 99284; J7030

== ENCOUNTER 2025-03-16 17:35 | Emergency (ER) | payer MEDICAID, SELFPAY ==
[2024-05-08 10:02] VITALS: BP 120/69
[2025-03-16 17:39] VITALS: BP 118/69; PULSE 79; RESP 10; O2SAT 100; BMI 21.2
[2025-03-16] MEDS: etomidate 2 mg/mL INJ SDV 10 mL 20 MG IVP (17:40)
[2025-03-16] MEDS: vecuronium 10 mg SDV IVP (17:40)
--- NOTE | 2025-03-16 17:40 | PC.NURSE ---
1L LR bolus infusing
--- OUTSIDE RECORDS SUMMARY | 2025-03-16 17:40 | XMS_ITS | Encounter Summary ---
[facility] Address [address] [place] [address] Care Team Providers Care Mining Machinery Assembler Name Role Phone Non-Staff, Physician Primary Care Provider Unava ilable Encounter Details Date Type Department Care Team (Latest Contact Info) Description 09/13/2017 Ancillary Orders [facility] Pre-Registration [place] CALL TO MAKE APPOINTMENT ONLY [address] [place] [id number] Bonilla Chowdary MD [address] [place] [id number] Intractable epilepsy without status epilepticus, unspecified epilepsy type (CMS/HCC) Social History Tobacco Use Types Packs/Day Years Used Date Smoking Tobacco: Never Assessed Sex and Gender Information Value Date Recorded Sex Assigned at Not on file Legal Sex Male 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
--- OUTSIDE RECORDS SUMMARY | 2025-03-16 17:40 | XMS_ITS | Encounter Summary ---
Author Organization [facility] Address [address] [place] [address] Care Team Providers Care Nutrition Services Worker Name Role Phone Non-Staff, Physician Primary Care Provider Unava ilable Encounter Details Date Type Department Care Team (Latest Contact Info) Description 05/01/2000 Outpatient Historical [facility] Family Medicine [address] [phone] Gerri Delacruz NO ADDRESS ON FILE Acute tonsillitis (Primary Dx) Social History Tobacco Use Types Packs/Day Years Used Date Smoking Tobacco: Never Assessed Sex and Gender Information Value Date Recorded Sex Assigned at Not on file 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
--- OUTSIDE RECORDS SUMMARY | 2025-03-16 17:40 | XMS_ITS | Encounter Summary ---
Author Organization [facility] Address [address] [place] [address] Care Team Providers Care Concrete Fence Builder Name Role Phone Non-Staff, Physician Primary Care Provider Unava ilable Encounter Details Date Type Department Care Team (Latest Contact Info) Description 11/20/1999 Outpatient Historical [facility] Family Medicine [place] [address] [facility] [address] [place] [phone] Edi Jacobs MD [address] [address] Routine child health exam (Primary Dx) Social History Tobacco Use Types Packs/Day Years Used Date Smoking Tobacco: Never Assessed Sex and Gender Information Value Date Recorded Sex Assigned at Not on file 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
--- OUTSIDE RECORDS SUMMARY | 2025-03-16 17:40 | XMS_ITS | Clinical Summary ---
Author Organization [facility] Address [address] [place] [address] Care Team Providers Care Classification Case Manager Name Role Phone Non-Staff, Physician Primary Care Provider Unava ilable Immunizations Immunization Administration Dates Next Due (M-M-R II/PRIORIX)(12 MO UP) MEASLES, MUMPS AND RUBELLA VIRUS VACCINE, 0.5 ML IM/SUBCUT 04/20/1999,03/15/1999 (VARIVAX)(12 MOS UP)VARICELL A VIRUS VACCINE (PF) 0.5 ML, SUB CUT 03/15/1999 Dt Dtp Dtap Vaccine 06/30/1996, 3,1992,1991 HIB, Unspecified Formulation 1992,09/26/18 93,1992 Hepatitis A Vaccine 04/28/2007,02/22/1999 Hepatitis B Vaccine 04/20/1999,02/22/1999 IPV/OPV 03/15/1999, 3,1992,1991 Social History Tobacco Use Types Packs/Day Years Used Date Smoking Tobacco: Never Assessed Sex and Gender Information Value Date Recorded Sex Assigned at Not on file 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
--- OUTSIDE RECORDS SUMMARY | 2025-03-16 17:40 | XMS_ITS | Encounter Summary ---
Author Organization [facility] Address [address] [place] [address] Care Team Providers Care Head Rigger Name Role Phone Non-Staff, Physician Primary Care Provider Unava ilable Encounter Details Date Type Department Care Team (Latest Contact Info) Description 06/27/2007 Outpatient Historical [facility] 

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
--- NOTE | 2025-03-16 17:47 | ECG_ITS ---
[facility] Test Date: 2025-03-16 Pat Name: Guido Dill Department: Room: Gender: Male Forepart Rounder: : 1990 Requested By: Rik Toledo Order Number: [id number] Sita MD: Yennifer Sanchez M.D. Measurements Intervals [place] Rate: 77 P: 56 TX: 169 QRS: 85 QRSD: 94 T: 30 QT: 382 QTc: 433 Interpretive Statements SINUS RHYTHM POSSIBLE LEFT ATRIAL ENLARGEMENT [-0.1mV P-WAVE IN V1/V2] Compared to ECG 05/07/2024 12:26:19 Sinus tachycardia no longer present Left ventricular hypertrophy no longer present ST (T wave) deviation no longer present Electronically Signed On 03-16-2025 22:56:41 CDT by Yennifer Sanchez M.D. [email or web address]
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
[2025-03-16] MEDS: fentaNYL 1,000 MCG/100 ML BAG 2.5 MCG IV (17:49)
[2025-03-16] MEDS: midazolam hcl 100 MG/100 ML BAG IV (17:49)
[2025-03-16 17:51] LABS: ABG PH Result 7.29 (7.35-7.45); Blood Gas Allen Test Pos; Blood Gas LPM 4.0 %; Blood Gas Operator Identificat GD; Blood Gas Sample Site Radial, right; Blood Gas Sample Type Arterial; Ionized Calcium Level - ABG 1.2 mmol/L (1.1-1.4)
[2025-03-16 17:52] LABS: ABG PCO2 52.6 mmHg (35-45); Alveolar-Arterial Oxygen Gradi 9.3 mmHg (5-10); Arterial Blood Gas Hematocrit 47.9 % (42-52); Carboxyhemoglobin 1.2 %THgb (0.4-20.1); Glucose Level-ABG 116.0 mg/dL (70-115); HCO3 ABG 25.0 mmol/L (22-26); Methemoglobin 0.1 % (0.4-1.5); Oxygen Saturation ABG 98.0; PO2 ABG 121.0 mmHg (80.0-100.0); PO2 FiO2 Ratio Arterial Blood 336; Potassium Level - ABG 4.2 mmol/L (3.5-5.0); Sodium Level - ABG 153.0 mmol/L (131-143)
[2025-03-16 17:54] LABS: Hematocrit 45.3 % (37-53); Hemoglobin 15.50 g/dL (11.27-16.99); Mean Corpuscular HGB Conc 34.2 g/dL (30-55); Mean Corpuscular Hemoglobin 32.1 pg (27-33); Mean Corpuscular Volume 93.8 fl (82-101); Nucleated Red Blood Cells % 0 %; Platelet Count 254 10^3/cmm (157-399); Red Blood Count 4.83 10^6/uL (3.85-5.65); White Blood Count 10.08 10^3/uL (3.29-11.43)
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
[2025-03-16 18:14] LABS: Alanine Aminotransferase 35 U/L (0-41); Albumin Level 5.2 g/dL (3.5-5.2); Alkaline Phosphatase 76 U/L (40-130); Anion Gap 22.3 (5-19); Aspartate Amino Transferase 26 U/L (0-40); Blood Urea Nitrogen 14 mg/dL (6-20); Calcium 8.8 mg/dL (8.5-10.5); Carbon Dioxide 24 mmol/L (22-29); Chloride 107 mmol/L (98-107); Creatinine Clr Calc Pharmacy 132.4740; Globulin 3.0 g/dL (1.3-4.6); Glucose 80 mg/dL (65-115); Lipase 93 U/L (13-60); Magnesium 2.7 mg/dL (1.7-2.3); Osmolality Calculated 307 mOsm/kg (285-295); Potassium 4.3 mmol/L (3.5-5.1); Sodium 149 mmol/L (136-145); Total Protein 8.2 g/dL (6.6-8.7)
[2025-03-16 18:15] LABS: Lactic Sepsis W/Reflex 3.8 mmol/L (0.5-2.2)
[2025-03-16 18:16] VITALS: BP 130/78; PULSE 75; RESP 20; O2SAT 98
[2025-03-16 18:18] VITALS: RESP 17
[2025-03-16 18:19] LABS: Acetaminophen < 5.0 ug/mL (10-30); Salicylate < 0.3 mg/dL (3-10)
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
[2025-03-16 18:20] LABS: Alcohol Level 398 mg/dL (0-10)
[2025-03-16 18:30] LABS: Glucose Urine UA Negative (Normal); Nitrate Urine Negative (Negative)
[2025-03-16] MEDS: iohexol 350 mg/mL 500 mL Btl (per mL) IV (18:35)
[2025-03-16 18:36] LABS: Add Urine Microscopic? YES
[2025-03-16 18:38] LABS: Specific Gravity, Urine 1.032 (1.005-1.030)
[2025-03-16 18:39] LABS: PCP Screen Urine Negative (Negative)
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
[2025-03-16 19:25] VITALS: RESP 16
--- NOTE | 2025-03-16 19:28 | XRR_ITS ---
PROCEDURE INFORMATION: Exam: XR Chest Exam date and time: 03/16/2025 7:28 PM Age: 34 years old Clinical indication: Device placement; Ng tube; Additional info: Justine mulligan TECHNIQUE: Imaging protocol: Radiologic exam of the chest. Views: 1 view. COMPARISON: CR (CHEST, ) 03/16/2025 6:43 PM FINDINGS: Tubes, catheters and devices: Endotracheal tube tip is just above the clavicular heads, not significantly changed. Sump port of the enteral tube is just above the GE junction. Lungs: There has been some improvement in dense retrocardiac atelectasis. There is truncation of the left lower lobe bronchus suggesting mucous plugging. Heterogeneous airspace disease throughout the left lung is otherwise stable. Clear over inflated right lung. Pleural spaces: No pleural effusion. No pneumothorax. Heart/Mediastinum: There is mediastinal shift from right to left, stable from prior. Bones/joints: Age appropriate. XR/XR chest 1V portable [id number] IMPRESSION: 1. There has been some improvement in aeration of the left lung, but there is still considerable volume loss in the left lung with right to left mediastinal shift. There may be mucous plugging in the left lower lobe. Airspace disease throughout the left lung is compelling for pneumonia which is otherwise stable. 2. Sump port of the enteral tube is near the GE junction. Consider advancing the device approximately 5 cm to situate the sump port in the gastric lumen.
[2025-03-16 19:37] LABS: Reflex Lactate Order REFLEX LACTIC ORDERD
[2025-03-16 19:38] LABS: Hematocrit 43.5 % (37-53); Hemoglobin 14.90 g/dL (11.27-16.99)
[2025-03-16] MEDS: piperacillin-tazobactam 4.5 GM in sodium chloride 0.9% (plus) 50 ML IV (19:48)
[2025-03-16 19:49] VITALS: BP 113/70; PULSE 63; RESP 16; O2SAT 100
== END 2025-03-16 20:13 ==
PROVIDERS: Emergency Provider Family Medicine; PCP Family Medicine
DX: T17.818A Gastric contents in other parts of respiratory tract causing other injury, initial encounter (principal); S20.319A Abrasion of unspecified front wall of thorax, initial encounter; S50.812A Abrasion of left forearm, initial encounter; S50.811A Abrasion of right forearm, initial encounter; Y04.8XXA Assault by other bodily force, initial encounter; Z87.891 Personal history of nicotine dependence; F10.129 Alcohol abuse with intoxication, unspecified; Y90.8 Blood alcohol level of 240 mg/100 ml or more
CPT/HCPCS: 31500; 36415; 36600; 51702; 70450; 71045; 71260; 72125; 74177; 80051; 80053; 80306; 80307; 81001; 82330; 82805; 83605; 83690; 83735; 85014; 85018; 85025; 86850; 86900; 87070; 87205; 93005; 94002; 94799; 96365; 96367; 96375; 99285; 99291; J2250; J2543; J3010; J3490

== ENCOUNTER 2025-03-17 20:40 | Emergency (ER) | payer MEDICAID, SELFPAY ==
[2024-05-08 10:02] VITALS: BP 120/69
--- OUTSIDE RECORDS SUMMARY | 2025-03-16 21:07 | XMS_ITS | Encounter Summary ---
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 (ABNORMAL) BLOOD GAS ARTERIAL (03/16/2025 9:23 PM CDT) PH BLOOD POC 7.28(L) 7.35 - 7.45 03/16/2025 9:23 PM [facility] PCO2 POC 52(H) 35 - 45 mm Hg 03/16/2025 9:23 PM [facility] PO2 POC 216(H) 80 - 105 mm Hg 03/16/2025 9:23 PM [facility] HCO3 (CALC) POC 24 22 - 26 mmol/L 03/16/2025 9:23 PM [facility] HEMOGLOBIN POC 13.7 12.0 - 18.0 g/dL 03/16/2025 9:23 PM [facility] BASE EXCESS POC -2 -2 - 3 mmol/L 03/16/2025 9:23 PM [facility] O2 SATURATION POC 100(H) 95 - 98 % 025 9:23 PM [facility] SODIUM POC 143 138 - 146 mmol/L 03/16/2025 9:23 PM [facility] POTASSIUM POC 4.2 3.5 - 4.9 mmol/L 03/16/2025 9:23 PM [facility] HEMATOCRIT POC 41 38 - 51 % 03/16/2025 9:23 PM [facility] PH TEMP CORRECT 7.28(L) 7.35 - 7.45 03/16/2025 9:23 PM [facility] PCO2 TEMP CORRECT 52(H) 35 - 45 mm Hg 03/16/2025 9:23 PM [facility] PO2 TEMP CORRECT 216(H) 80 - 105 mm Hg 03/16/2025 9:23 PM [facility] SPECIMEN SOURCE, GASES POC Arterial 03/16/2025 9:23 PM [facility] CALCIUM IONIZED POC 4.3(L) 4.8 - 5.2 mg/dL 03/16/2025 9:23 PM [facility] TCO2 (CALC) POC 26 23 - 27 mmol/L 03/16/2025 9:23 PM [facility] FIO2 60.0 21.0 - 100.0 % 03/16/2025 9:23 PM [facility] Comment:FIO2 values reported <21.0 indicate O2 flow in Liters/minute. Values >/= 21.0 indicate percent O2. P/F RATIO POC 360 03/16/2025 9:23 PM [facility] Comment: P/F Ratio Interpretation ARDS SEVERITY PaO2/FiO2 Mild 200-300 Moderate 100-200 Severe <100 PEEP POC 8 03/16/2025 9:23 PM [facility] PUNC SITE POC ART PUNCT 03/16/2025 9:23 PM [facility] VENT MODE POC APRV 03/16/2025 9:23 PM [facility] Blood, arterial 03/16/2025 9 :23 PM CDT 03/16/2025 9:24 PM CDT us Krisi A Causa DO ABG ORDERABLES Final Result [facility] CLIA # [id number] [address] [facility] [place] [address] * Critical Care (03/16/2025 9:07 PM CDT) Narrative Shamar Awad MD - 03/16/2025 9:07 PM CDT Shamar Awad MD 03/16/2025 10:43 PM Critical Care Performed by: Shamar Awad MD Authorized by: Shamar Awad MD Critical care provider statement: Critical care time (minutes): 35 Critical care time was exclusive of: Separately billable procedures and treating other patients Critical care was necessary to treat or prevent imminent or life-threatening deterioration of the following conditions: Trauma and respiratory failure Critical care was time spent personally by me on the following activities: Blood draw for specimens, development of treatment plan with patient or surrogate, discussions with primary provider, evaluation of patient's response to treatment, examination of patient, obtaining history from patient or surrogate, ordering and performing treatments and interventions, ordering and review of laboratory studies, ordering and review of radiographic studies, pulse oximetry, re-evaluation of patient's condition, review of old charts and ventilator management I assumed direction of critical care for this patient from another provider in my specialty: no Care discussed with: admitting provider Shamar Awad MD PROCEDURE/MINOR SURGICAL O RDERABLES Final Result * UNCROSSMATCHED/EMERGENCY ISSUE BLOOD PRODUCTS (03/16/2025 8:58 PM CDT) UNCROSSMATCHED UNITS Order Complete 03/16/2025 10:[address] [facility] Fab [facility] Other, specify 03/16/2025 8: 58 PM CDT 03/16/2025 8:58 PM CDT Royce Ortiz DO BLOOD BANK ORDERABLES Final Res ult [id number] [address] [place] [address], [place] [phone] documented in this encounter Visit Diagnoses Diagnosis Acute respiratory failure with hypoxia and hypercapnia (CMS/HCC)- Primary Acute respiratory failure with hypoxia and hypercapnia (CMS/HCC) Respiratory acidosis Acidosis Alcoholic intoxication with complication Closed fracture of nasal bone, initial encounter Multiple abrasions Abrasion or friction burn of other, multiple, and unspecified sites, without mention of infection Normocytic anemia Anemia, unspecified Hypotension, unspecified hypotension type Elevated lactic acid level Other nonspecific abnormal serum enzyme levels Alcoholic intoxication with complication Closed fracture of nasal bones Nasal bones, closed fracture Elevated lactic acid level Other nonspecific abnormal serum enzyme levels Hypotension Hypotension, unspecified Multiple abrasions Abrasion or friction burn of other, multiple, and unspecified sites, without mention of infection Normocytic anemia Anemia, unspecified Respiratory acidosis Acidosis documented in this encounter Administered Medications Inactive Administered Medications - up to 3 most recent administrations Medication Order MAR Action Action Date Dose Rate Site azithromycin (ZITHROMAX) tablet 500 mg 500 mg, Oral, DAILY, 5 doses, First dose on Sat03/17/25 at 0900, Last dose on Sat03/21/25 at 0900, Routine, Antibiotic Indication: Pneumonia - Community-acquired(CAP) cefePIME (MAXIPIME) 2,000 mg in sodium chloride 0.9% 50 mL IVPB (MBP) 2,000 mg, IV, EVERY 8 HOURS, First dose on Sat03/16/25 at 2300, Until Discontinued, Routine, Antibiotic Indication: Other: Enter in Comments, Antibiotic Indication: aspiration New Bag 03/17/2025 7:45 AM CDT 2,000 mg 118 mL/hr Rate Verify 03/17/2025 12:12 AM CDT 118 mL/hr Restarted 03/17/2025 12:10 AM CDT 118 mL/hr enoxaparin (LOVENOX) injection 40 mg 40 mg, subCUT, EVERY 12 HOURS, First dose on Sat03/17/25 at 0900, Until Discontinued, Routine, Indication: Prophylaxis of VTE (trauma) Given 03/17/2025 8:29 AM CDT 40 mg Abdominal Tissue famotidine PF (PEPCID) 20 mg in sodium chloride 0.9% 10 mL injection 20 mg, IV, TWO TIMES DAILY, First dose on Sat03/16/25 at 2145, Until Discontinued, Routine Given 03/17/2025 12:01 AM CDT 20 mg fentaNYL (PF) 1,500 mcg/30 mL (50 mcg/mL) intravenous solution 0-150 mcg/hr (0-3 mL/hr), IV, TITRATE, Starting on Sat03/16/25 at 2145, Until Sat03/17/25 at 0759, Should this infusion be titrated? Yes, Initial infusion dose? 25 mcg/hr, Titration Dose Increment? 12.5 mcg/hr, Titration Interval? 10 minutes, Goal Type? RASS Goal, RASS Goal? -2 to 0 Rate Change 03/17/2025 2:42 AM CDT 50 mcg/hr 1 mL/hr Rate Change 03/17/2025 1:00 AM CDT 25 mcg/hr 0.5 mL/hr Rate Change 03/17/2025 12:43 AM CDT 37.5 mcg/hr 0.75 mL/hr haloperidol lactate (HALDOL) injection 5 mg 5 mg, IV, ONE TIME ONLY, 1 dose, On Sat03/17/25 at 0915, Routine Given 03/17/2025 9:15 AM CDT 5 mg HALOPERIDOL LACTATE 5 MG/ML INJECTION SOLUTION (CABINET OVERRIDE) 1 dose, Starting on Sat03/17/25 at 0900, Until Sat03/17/25 at 0915, Mariangel Hager: cabinet override ibuprofen (MOTRIN) tablet 400 mg 400 mg, Oral, EVERY 4 HOURS PRN, Starting on Sat03/17/25 at 0809, Until Sat03/17/25 at 1314, Pain, Mild, Routine lactated ringers bolus solution 1,000 mL 1,000 mL, IV, ONE TIME ONLY, 1 dose, On Sat03/16/25 at 2130, at 999 mL/hr, Administer over 60 Minutes, Stat Started by Another Clinician 03/16/2025 9:29 PM CDT 1,000 mL 999 mL/hr lactated ringers bolus solution 1,000 mL 1,000 mL, IV, ONE TIME ONLY, 1 dose, On Sat03/16/25 at 2145, at 999 mL/hr, Administer over 60 Minutes, Stat Started by Another Clinician 03/16/2025 9:45 PM CDT 1,000 mL 999 mL/hr lactated ringers infusion IV, at 150 mL/hr, CONTINUOUS, Starting on Sat03/16/25 at 2145, Until Sat03/17/25 at 0759, Routine New Bag 03/17/2025 5:58 AM CDT 150 mL/hr Rate Verify 03/17/2025 5:14 AM CDT 150 mL/hr Rate Verify 03/17/2025 3:13 AM CDT 150 mL/hr levETIRAcetam (KEPPRA) 500 mg/5 mL injection 500 mg 500 mg, IV, TWO TIMES DAILY, First dose on Sat03/16/25 at 2145, Until Discontinued, Routine Given 03/17/2025 12:00 AM CDT 500 mg levETIRAcetam (KEPPRA) tablet 500 mg 500 mg, Oral, TWO TIMES DAILY, First dose on Sat03/17/25 at 0900, Until Discontinued, Routine Given 03/17/2025 8:29 AM CDT 500 mg magnesium SULFATE in water 2 gram/50 mL (4 %) IVPB 2 Gram 2 Gram, IV, ONE TIME ONLY, 1 dose, On Sat03/17/25 at 0700, Routine New Bag 03/17/2025 7:44 AM CDT 2 Grams 25 mL/hr PHENobarbital (LUMINAL) 130 mg/mL injection 260 mg 260 mg, IV, ONE TIME ONLY, 1 dose, On Sat03/16/25 at 2145, Routine Given 03/17/2025 12:01 AM CDT 260 mg PHENobarbital tablet 16.2 mg 16.2 mg, Oral, EVERY 6 HOURS, 4 doses, First dose on Sat03/20/25 at 0600, Last dose on Sat03/21/25 at 0000, Routine PHENobarbital tablet 32.4 mg 32.4 mg, Oral, EVERY 6 HOURS, 4 doses, First dose on Sat03/19/25 at 0600, Last dose on Sat03/20/25 at 0000, Routine PHENobarbital tablet 48.6 mg 48.6 mg, Oral, EVERY 6 HOURS, 4 doses, First dose on Sat03/18/25 at 0600, Last dose on Sat03/19/25 at 0000, Routine PHENobarbital tablet 64.8 mg 64.8 mg, Oral, EVERY 6 HOURS, 4 doses, First dose on Sat03/17/25 at 0345, Last dose on Sat03/18/25 at 0000, Routine Given 03/17/2025 4:42 AM CDT 64.8 mg potassium CHLORIDE 20 mEq/100 mL IVPB 20 mEq 20 mEq, IV, ONE TIME ONLY, 1 dose, On Sat03/17/25 at 0800, Routine New Bag 03/17/2025 8:24 AM CDT 20 mEq 50 mL/hr propofol (DIPRIVAN) 10 mg/mL continuous infusion 0-50 mcg/kg/min 81.6 kg (0-24.48 mL/hr), IV, TITRATE, Starting on Sat03/16/25 at 2200, Until Sat03/17/25 at 0759, Should this infusion be titrated? Yes, Initial infusion dose? 5 mcg/kg/min, Titration Dose Increment? 5 mcg/kg/min, Titration Interval? 10 minutes, RASS Goal? -2 to 0 Rate Change 03/17/2025 6:00 AM CDT 20 mcg/kg/min 9.79 mL/hr Rate Verify 03/17/2025 5:14 AM CDT 15 mcg/kg/min 7.38 mL/h r Rate Verify 03/17/2025 3:13 AM CDT 15 mcg/kg/min 7.38 mL/h r PROPOFOL 10 MG/ML INFUSION WRAPPER (CABINET OVERRIDE) 1 dose, Starting on Sat03/16/25 at 2111, Until Sat03/16/25 at 2133 rocuronium injection 75 mg, IV, ONE TIME ONLY, 1 dose, On Sat03/16/25 at 2215, Stat Given 03/16/2025 9:57 PM CDT 75 mg thiamine (VITAMIN B-1) injection 100 mg 100 mg, IV, ONE TIME ONLY, 1 dose, On Sat03/16/25 at 2145, Routine Given 03/17/2025 12:01 AM CDT 100 mg thiamine mononitrate (VITAMIN B-1) tablet 100 mg 100 mg, Oral, DAILY, First dose on Sat03/17/25 at 0900, Until Discontinued, Routine Given 03/17/2025 8:29 AM CDT 100 mg vancomycin in sodium chloride 0.9% (VANCOCIN) 1250 mg/262.5 mL IVPB 1,250 mg 1,250 mg, IV, EVERY 8 HOURS, First dose on Sat03/17/25 at 0000, Until Discontinued, Routine, Antibiotic Indication: Other: Enter in Comments, Antibiotic Indication: aspiration Rate Verify 03/17/2025 1:16 AM CDT 198.33 mL/hr Rate Verify 03/17/2025 12:12 AM CDT 198.33 mL/h r New Bag 03/16/2025 11:50 PM CDT 1,250 mg 198.33 mL/hr documented in this encounter Active and Recently Administered Medications Times are shown in CDT. Scheduled Medication Order 03/15/2025 03/16/2025 03/17/2025 azithromycin (ZITHROMAX) tablet 500 mg 500 mg, Oral, DAILY, 5 doses, First dose on Sat03/17/25 at 0900, Last dose on Sat03/21/25 at 0900, Routine, Antibiotic Indication: Pneumonia - Community-acquired(CAP) 0900 (Due) cefePIME (MAXIPIME) 2,000 mg in sodium chloride 0.9% 50 mL IVPB (MBP) (CANCELED) 2,000 mg, IV, EVERY 8 HOURS, First dose on Sat03/16/25 at 2300, Until Discontinued, Routine, Antibiotic Indication: Other: Enter in Comments, Antibiotic Indication: aspiration 2351 (New Bag - Provider: Medhat Perez RN) 0007 (Paused - Provider: Medhat Perez RN)0010 (Restarted - Provider: Medhat Perez RN)0012 (Rate Verify - Provider: Medhat Perez RN)0021 (Stopped - Provider: Medhat Perez RN)0745 (New Bag - Provider: Oliiva Mayberry RN)0815 (Stopped - Provider: Olivia Mayberry RN) enoxaparin (LOVENOX) injection 40 mg 40 mg, subCUT, EVERY 12 HOURS, First dose on Sat03/17/25 at 0900, Until Discontinued, Routine, Indication: Prophylaxis of VTE (trauma) 0829 (Given - Provid er: Olivia Mayberry RN) famotidine PF (PEPCID) 20 mg in sodium chloride 0.9% 10 mL injection (CANCELED) 20 mg, IV, TWO TIMES DAILY, First dose on Sat03/16/25 at 2145, Until Discontinued, Routine 0001 (Given - Provid er: Medhat Perez RN) haloperidol lactate (HALDOL) injection 5 mg (COMPLETED) 5 mg, IV, ONE TIME ONLY, 1 dose, On Sat03/17/25 at 0915, Routine 0915 (Given - Provid er: Olivia Mayberry RN) lactated ringers bolus solution 1,000 mL (COMPLETED) 1,000 mL, IV, ONE TIME ONLY, 1 dose, On Sat03/16/25 at 2130, at 999 mL/hr, Administer over 60 Minutes, Stat 212 (Started by Another Clinician - Provider: Jcarlos Murray RN - Comment: Elizabeth RN) lactated ringers bolus solution 1,000 mL (COMPLETED) 1,000 mL, IV, ONE TIME ONLY, 1 dose, On Sat03/16/25 at 2145, at 999 mL/hr, Administer over 60 Minutes, Stat 2145 (Started by Another Clinician - Provider: Jcarlos Murray RN - Comment: Elizabeth RN) levETIRAcetam (KEPPRA) 500 mg/5 mL injection 500 mg (CANCELED) 500 mg, IV, TWO TIMES DAILY, First dose on Sat03/16/25 at 2145, Until Discontinued, Routine 0000 (Given - Provid er: Medhat Perez RN) levETIRAcetam (KEPPRA) tablet 500 mg 500 mg, Oral, TWO TIMES DAILY, First dose on Sat03/17/25 at 0900, Until Discontinued, Routine 0829 (Given - Provid er: Olivia Mayberry RN) magnesium SULFATE in water 2 gram/50 mL (4 %) IVPB 2 Gram (COMPLETED) 2 Gram, IV, ONE TIME ONLY, 1 dose, On Sat03/17/25 at 0700, Routine 0744 (New Bag - Provider: Olivia Mayberry RN)0944 (Due: Stopped - Provider: Olivia Mayberry RN) naloxone (NARCAN) 0.4 mg/mL injection 0.1-0.4 mg 0.1-0.4 mg, IV, SEE ADMIN INSTRUCTIONS, Starting on Sat03/16/25 at 2137, Until Sat03/17/25 at 1314, Routine PHENobarbital (LUMINAL) 130 mg/mL injection 260 mg (COMPLETED)(Linked Group 1) 260 mg, IV, ONE TIME ONLY, 1 dose, On Sat03/16/25 at 2145, Routine 0001 (Given - Provid er: Medhat Perez, IKER) PHENobarbital tablet 16.2 mg(Linked Group 2) 16.2 mg, Oral, EVERY 6 HOURS, 4 doses, First dose on Sat03/20/25 at 0600, Last dose on Sat03/21/25 at 0000, Routine PHENobarbital tablet 32.4 mg(Linked Group 2) 32.4 mg, Oral, EVERY 6 HOURS, 4 doses, First dose on Sat03/19/25 at 0600, Last dose on Sat03/20/25 at 0000, Routine PHENobarbital tablet 48.6 mg(Linked Group 2) 48.6 mg, Oral, EVERY 6 HOURS, 4 doses, First dose on Sat03/18/25 at 0600, Last dose on Sat03/19/25 at 0000, Routine PHENobarbital tablet 64.8 mg(Linked Group 2) 64.8 mg, Oral, EVERY 6 HOURS, 4 doses, First dose on Sat03/17/25 at 0345, Last dose on Sat03/18/25 at 0000, Routine 0442 (Given - Provid er: Medhat Perez, IKER) potassium CHLORIDE 20 mEq/100 mL IVPB 20 mEq (COMPLETED)(Linked Group 3) 20 mEq, IV, ONE TIME ONLY, 1 dose, On Sat03/17/25 at 0800, Routine 0824 (New Bag - Provider: Olivia Mayberry, IKER)1024 (Due: Stopped - Provider: Olivia Mayberry, IKER) potassium CHLORIDE 20 mEq/100 mL IVPB 20 mEq(Linked Group 3) 20 mEq, IV, ONE TIME ONLY, 1 dose, On Sat03/17/25 at 1000, Routine 1000 (Due) replacement reminder - Phosphorus *FOR USE IN THE ICU SETTING ONLY - Discontinue order if patient NOT in ICU setting* ALERT: ENTERAL DOSE NOT FOR USE IN CTS PATIENTS ON DAY OF SURGERY AND POST OP DAY 1. *Follow instructions for labs ordered by Provider OR as a post replacement check as indicated below. *If Patient on dialysis, has serum creatinine 1.8 or GREATER, doubled creatinine in last 24 hours, OR urine output LESS than 0.5 mL/kg/hr contact provider PRIOR to administering replacement. For non-critical lab values, send Rx message to obtain replacement with next delivery after dose has been verified. Call pharmacy to expedite CRITICAL values needing more immediate replacement. For Phosphate level LESS than 1.1 mg/dL: If Potassium 3.8 mmol/L or GREATER: administer 30 mmol SODIUM Phosphate IVPB for 1 dose. If Potassium LESS than 3.8 mmol/L: administer 30 mmol POTASSIUM Phosphate IVPB for 1 dose. *Do NOT replace at same time as Potassium Chloride. *Notify Provider AFTER initiating replacement. TWO hours POST infusion, obtain phosphate and potassium level. If phosphate LESS than 1.1 mg/dL, repeat replacement as indicated. After replacement, verify repeat phosphate level ordered with AM labs. For Phosphate level 1.1 - 2.5 mg/dL: Administer 1 packet PhosNak enterally for 1 dose. If enteral route unavailable, administer SODIUM Phosphate 15 mmol IVPB for 1 dose., Routine, Starting on Sat03/16/25 at 2137 replacement reminder - Potassium *FOR USE IN THE ICU SETTING ONLY - Discontinue order if patient NOT in ICU setting* ALERT: ENTERAL DOSE NOT FOR USE IN CTS PATIENTS ON DAY OF SURGERY AND POST OP DAY 1. *Follow instructions for labs ordered by Provider OR as a post replacement check as indicated below. *If Patient on dialysis, has serum creatinine 1.8 or GREATER, doubled creatinine in last 24 hours, OR urine output LESS than 0.5 mL/kg/hr contact provider PRIOR to administering replacement. For non-critical lab values, send Rx message to obtain replacement with next delivery after dose has been verified. Call pharmacy to expedite CRITICAL values needing more immediate replacement. For Potassium level LESS than 3 mmol/L: Administer 40 mEq IVPB for 2 doses OR 20 mEq IVPB for 4 doses (as per local formulary). *Notify Provider AFTER initiating replacement. TWO hours POST infusion, obtain potassium and magnesium level. If potassium LESS than 3.5 mmol/L, repeat replacement as indicated. After replacement, verify repeat potassium level ordered with AM labs. For Potassium level 3 - 3.5 mmol/L: Administer 40 mEq enterally for 2 doses. If enteral route unavailable, administer 40 mEq IVPB for 2 doses OR 20 mEq IVPB for 4 doses (as per local formulary). For Potassium level 3.6 - 4 mmol/L: Administer 40 mEq enterally for 1 dose. If enteral route unavailable, administer 40 mEq IVPB for 1 dose OR 20 mEq IVPB for 2 doses (as per local formulary)., Routine, Starting on Sat03/16/25 at 2137 replacement reminder-Calcium *FOR USE IN THE ICU SETTING ONLY - Discontinue order if patient NOT in ICU setting* *Follow instructions for labs ordered by Provider OR as a post replacement check as indicated below. *Avoid Calcium replacement in patients with brain injury. *If Patient on dialysis, has serum creatinine 1.8 or GREATER, doubled creatinine in last 24 hours, OR urine output LESS than 0.5 mL/kg/hr contact provider PRIOR to administering replacement. For non-critical lab values, send Rx message to obtain replacement with next delivery after dose has been verified. For critically low Calcium, called by lab: RN coordinate with pharmacist for Calcium CHLORIDE 1 gram to be given IV push over 5 minutes, if IVPB not available. Administer into large vein (central preferred). Avoid use of veins in hand, scalp or foot. For IONIZED Calcium level LESS than 3.5 mg/dL (or 0.8 mmol/L): Administer Calcium Gluconate 1,000 mg IVPB for 1 dose. *Notify Provider AFTER initiating replacement. TWO hours POST infusion, obtain ionized calcium level. If LESS than 3.5 mg/dL (or 0.8 mmol/L), contact provider. After replacement, verify repeat ionized calcium level ordered with AM labs., Routine, Starting on Sat03/16/25 at 2137 replacement reminder-Magnesium *FOR USE IN THE ICU SETTING ONLY - Discontinue order if patient NOT in ICU setting* *Follow instructions for labs ordered by Provider OR as a post replacement check as indicated below. *If Patient on dialysis, has serum creatinine 1.8 or GREATER, doubled creatinine in last 24 hours, OR urine output LESS than 0.5 mL/kg/hr contact provider PRIOR to administering replacement. For non-critical lab values, send Rx message to obtain replacement with next delivery after dose has been verified. Call pharmacy to expedite CRITICAL values needing more immediate replacement. For Magnesium level LESS than 1 mg/dL: Administer 4 grams IVPB for 1 dose. *Notify Provider AFTER initiating replacement. EIGHT hours POST infusion, obtain magnesium level. If LESS than 1.5 mg/dL, repeat replacement as indicated. For Magnesium level 1 - 1.5 mg/dL: Administer 4 grams IVPB for 1 dose. For Magnesium level 1.6 - 1.9 mg/dL: Administer 2 grams IVPB for 1 dose., Routine, Starting on Sat03/16/25 at 2137 rocuronium injection (COMPLETED) 75 mg, IV, ONE TIME ONLY, 1 dose, On Sat03/16/25 at 2215, Stat 2157 (Given - Provider: Jcarlos Murray, IKER) thiamine (VITAMIN B-1) injection 100 mg (COMPLETED)(Linked Group 4) 100 mg, IV, ONE TIME ONLY, 1 dose, On Sat03/16/25 at 2145, Routine 0001 (Given - Provid er: Medhat Perez RN) thiamine mononitrate (VITAMIN B-1) tablet 100 mg(Linked Group 4) 100 mg, Oral, DAILY, First dose on Sat03/17/25 at 0900, Until Discontinued, Routine 0829 (Given - Provid er: Olivia Mayberry RN) vancomycin in sodium chloride 0.9% (VANCOCIN) 1250 mg/262.5 mL IVPB 1,250 mg (CANCELED) 1,250 mg, IV, EVERY 8 HOURS, First dose on Sat03/17/25 at 0000, Until Discontinued, Routine, Antibiotic Indication: Other: Enter in Comments, Antibiotic Indication: aspiration 2350 (New Bag - Provider: Medhat Perez RN) 0012 (Rate Verify - Provider: Medhat Perez RN)0116 (Rate Verify - Provider: Medhat Perez RN)0120 (Stopped - Provider: Medhat Perez RN) Continuous Medication Order 03/15/2025 03/16/2025 03/17/2025 fentaNYL (PF) 1,500 mcg/30 mL (50 mcg/mL) intravenous solution (CANCELED)(Linked Group 5) 0-150 mcg/hr (0-3 mL/hr), IV, TITRATE, Starting on Sat03/16/25 at 2145, Until Sat03/17/25 at 0759, Should this infusion be titrated? Yes, Initial infusion dose? 25 mcg/hr, Titration Dose Increment? 12.5 mcg/hr, Titration Interval? 10 minutes, Goal Type? RASS Goal, RASS Goal? -2 to 0 2243 (New Bag - Provider: Summer Marquis RN)2300 (Rate Change - Provider: Medhat Perez RN) 0043 (Rate Change - Provider: Medhat Perez RN)0100 (Rate Change - Provider: Medhat Perez RN)0242 (Rate Change - Provider: Medhat Perez RN)0759 (Stopped - Provider: Olivia Mayberry RN - Comment: [Order ends at this time. Document the following action when infusion is complete: Stopped]) lactated ringers infusion (CANCELED) IV, at 150 mL/hr, CONTINUOUS, Starting on Sat03/16/25 at 2145, Until Sat03/17/25 at 0759, Routine 2247 (New Bag - Provider: Summer Marquis RN)2324 (Rate Verify - Provider: Medhat ePrez RN)2326 (Paused - Provider: Medhat Perez RN)2330 (Restarted - Provider: Medhat Perez RN) 0012 (Rate Verify - Provider: Medhat Perez RN)0111 (Rate Change - Provider: Medhat Perez RN)0112 (Rate Verify - Provider: Medhat Perez RN)0116 (Rate Verify - Provider: Medhat Perez RN)0251 (Rate Verify - Provider: Medhat Perez RN)0313 (Rate Verify - Provider: Medhat Perez RN)0514 (Rate Verify - Provider: Medhat Perez RN)0558 (New Bag - Provider: Medhat Perez RN)0759 (Stopped - Provider: Olivia Mayberry RN - Comment: [Order ends at this time. Document the following action when infusion is complete: Stopped]) propofol (DIPRIVAN) 10 mg/mL continuous infusion (CANCELED) 0-50 mcg/kg/min 81.6 kg (0-24.48 mL/hr), IV, TITRATE, Starting on Sat03/16/25 at 2200, Until Sat03/17/25 at 0759, Should this infusion be titrated? Yes, Initial infusion dose? 5 mcg/kg/min, Titration Dose Increment? 5 mcg/kg/min, Titration Interval? 10 minutes, RASS Goal? -2 to 0 2147 (New Bag - Provider: Jcarlos Murray RN - Comment: started by Elizabeth DONG)2300 (Stopped - Provider: Medhat Perez RN) 0239 (New Bag - Provider: Medhat Perez RN)0239 (Rate Verify - Provider: Medhat Perez RN)025 (Rate Verify - Provider: Medhat Perez RN)0251 (Rate Change - Provider: Medhat Perez RN)0252 (Rate Verify - Provider: Medhat Perez RN - Comment: [Action automatically changed])0313 (Rate Verify - Provider: Medhat Perez RN)0514 (Rate Verify - Provider: Medhat Perez RN)0600 (Rate Change - Provider: Medhat Perez RN)0759 (Stopped - Provider: Olivia Mayberry RN - Comment: [Order ends at this time. Document the following action when infusion is complete: Stopped]) PRN Medication Order 03/15/2025 03/16/2025 03/17/2025 acetaminophen (TYLENOL) tablet 650 mg 650 mg, Oral, EVERY 6 HOURS PRN, Starting on Sat03/16/25 at 2137, Until Sat03/17/25 at 1314, Other (See Comment), See admin instructions, Routine ibuprofen (MOTRIN) tablet 400 mg 400 mg, Oral, EVERY 4 HOURS PRN, Starting on Sat03/17/25 at 0809, Until Sat03/17/25 at 1314, Pain, Mild, Routine PHENobarbital (LUMINAL) 130 mg/mL injection 130 mg(Linked Group 1) 130 mg, IV, EVERY 30 MINUTES PRN, 3 doses, Starting on Sat03/16/25 at 2137, Until Sat03/17/25 at 1314, Other (See Comment), CIWA-Ar of greater than or equal to 10, or agitation., Routine, During verification, add a stop time to this order so that it ends after 6 hours. No Frequency Medication Order 03/15/2025 03/16/2025 03/17/2025 CEFAZOLIN 1 GRAM SOLUTION FOR INJECTION (CABINET OVERRIDE) 1 dose, Starting on Sat03/16/25 at 2052, Until Sat03/30/25 at 2099, Suyapa Alvarez A: cabinet override 2099 (Due) DIPHTH,PERTUS(AC)TETANUS(PF)2 LF-(2.5-5-3-5MCG)-5 LF/0.5 ML IM SYRINGE (CABINET OVERRIDE) 1 dose, Starting on Sat03/16/25 at 2052, Until Sat03/30/25 at 2099, Suyapa Alvarez A: cabinet override 2099 (Due) SODIUM CHLORIDE 0.9 % INTRAVENOUS SOLUTION (CABINET OVERRIDE) 1 dose, Starting on Sat03/16/25 at 2051, Until Sat03/30/25 at 2099, Suyapa Alvarez A: cabinet override 2099 (Due) Linked Groups Order Group 1: PHENobarbital (LUMINAL) 130 mg/mL injection 260 mg (COMPLETED)Jump to med 260 mg, IV, ONE TIME ONLY, 1 dose, On Sat03/16/25 at 2145, Routine And PHENobarbital (LUMINAL) 130 mg/mL injection 130 mgJump to med 130 mg, IV, EVERY 30 MINUTES PRN, 3 doses, Starting on Sat03/16/25 at 2137, Until Sat03/17/25 at 1314, Other (See Comment), CIWA-Ar of greater than or equal to 10, or agitation., Routine, During verification, add a stop time to this order so that it ends after 6 hours. Group 2: PHENobarbital tablet 64.8 mgJump to med 64.8 mg, Oral, EVERY 6 HOURS, 4 doses, First dose on Sat03/17/25 at 0345, Last dose on Sat03/18/25 at 0000, Routine Followed by PHENobarbital tablet 48.6 mgJump to med 48.6 mg, Oral, EVERY 6 HOURS, 4 doses, First dose on Sat03/18/25 at 0600, Last dose on Sat03/19/25 at 0000, Routine Followed by PHENobarbital tablet 32.4 mgJump to med 32.4 mg, Oral, EVERY 6 HOURS, 4 doses, First dose on Sat03/19/25 at 0600, Last dose on Sat03/20/25 at 0000, Routine Followed by PHENobarbital tablet 16.2 mgJump to med 16.2 mg, Oral, EVERY 6 HOURS, 4 doses, First dose on 03/20/25 at 0600, Last dose on 03/21/25 at 0000, Routine Group 3: potassium CHLORIDE 20 mEq/100 mL IVPB 20 mEq (COMPLETED)Jump to med 20 mEq, IV, ONE TIME ONLY, 1 dose, On Sat03/17/25 at 0800, Routine Followed by potassium CHLORIDE 20 mEq/100 mL IVPB 20 mEqJump to med 20 mEq, IV, ONE TIME ONLY, 1 dose, On Sat03/17/25 at 1000, Routine Group 4: thiamine (VITAMIN B-1) injection 100 mg (COMPLETED)Jump to med 100 mg, IV, ONE TIME ONLY, 1 dose, On Sat03/16/25 at 2145, Routine Followed by thiamine mononitrate (VITAMIN B-1) tablet 100 mgJump to med 100 mg, Oral, DAILY, First dose on Sat03/17/25 at 0900, Until Discontinued, Routine Group 5: fentaNYL (PF) 1,500 mcg/30 mL (50 mcg/mL) intravenous solution (CANCELED)Jump to med 0-150 mcg/hr (0-3 mL/hr), IV, TITRATE, Starting on Sat03/16/25 at 2145, Until Sat03/17/25 at 0759, Should this infusion be titrated? Yes, Initial infusion dose? 25 mcg/hr, Titration Dose Increment? 12.5 mcg/hr, Titration Interval? 10 minutes, Goal Type? RASS Goal, RASS Goal? -2 to 0 And fentaNYL (SUBLIMAZE) bolus from infusion 25 mcg (CANCELED) 25 mcg, IV, EVERY 15 MINUTES PRN, Starting on Sat03/16/25 at 2137, Until Sat03/17/25 at 0759, Pain, Break-Through, Other (See Comment), for breakthrough pain or sedation to maintain RASS goal -2 to 0, Routine documented in this encounter Care Teams Gas Pumping Station Helper Relationship Specialty Start Date End Date Non-Staff, Physician NO ADDRESS ON FILE PCP - General 09/04/07 documented as of this encounter
--- OUTSIDE RECORDS SUMMARY | 2025-03-17 20:45 | XMS_ITS | Encounter Summary ---
Author Organization [facility] Address [address] [place] [address] Care Team Providers Care College Tutor Name Role Phone Non-Staff, Physician Primary Care Provider Unava ilable Encounter Details Date Type Department Care Team (Latest Contact Info) Description 09/13/2017 Ancillary Orders [facility] Pre-Registration [place] CALL TO MAKE APPOINTMENT ONLY [address] [place] [id number] Bonilla Chowdary MD [address] [place] [phone] Intractable epilepsy without status epilepticus, unspecified epilepsy type (CMS/HCC) Social History Tobacco Use Types Packs/Day Years Used Date Smoking Tobacco: Never Assessed Sex and Gender Information Value Date Recorded Sex Assigned at Not on file 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
--- OUTSIDE RECORDS SUMMARY | 2025-03-17 20:46 | XMS_ITS | Encounter Summary ---
Author Organization [facility] Address [address] Attn: Epic Prelude ADT LI[place] RHODES [id number] Care Team Providers Care Photoengraving Apprentice Name Role Phone Non-Staff, Physician Primary Care Provider Unava ilable Encounter Details Date Type Department Care Team (Latest Contact Info) Description 03/17/2025 Travel Social History Tobacco Use Types Packs/Day Years Used Date Smoking Tobacco: Unknown Alcohol Use Standard Drinks/Week Comments Yes 0 (1 standard drink = 0.6 oz pure alcohol) Unknown, patient intoxicated upon arrival Sex and Gender Information Value Date Recorded Sex Assigned at Not on file 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
--- OUTSIDE RECORDS SUMMARY | 2025-03-17 20:46 | XMS_ITS | Clinical Summary ---
Author Organization [facility] Address [address] [place] [address] Phone Care Team Providers Care Punch Press Operator Name Role Phone Non-Staff, Physician Primary Care Provider Unava ilable Allergies No known active allergies Medications No known medications Active Problems Problem Noted Date Diagnosed Date Acute respiratory failure with hypoxia and hyper capnia 03/16/2025 Alcoholic intoxication with complication 025 Closed fracture of nasal bones 03/16/2025 Elevated lactic acid level 03/16/2025 Hypotension 03/16/2025 Multiple abrasions 03/16/2025 Normocytic anemia 03/16/2025 Respiratory acidosis 03/16/2025 Encounters Date Type Department Care Team Description 03/17/2025 Travel 03/16/2025 9:07 PM CDT - 03/17/2025 10:00 AM CDT Hospital Encounter [facility] 4E Neuro Intensive Care [address] [place] [address] Shamar Awad MD Causa, Krisi A, DO Acute respiratory failure with hypoxia and hypercapnia (CMS/HCC) Discharge Disposition: Left Against Medical Advice from Last 3 Months Immunizations Immunization Administration Dates Next Due (M-M-R [...] on file 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 Gender Identity Not on file Sexual Orientation Not on file Last Filed Vital Signs Vital Sign Reading [...] Mass Index 19.83 03/16/2025 10:45 PM CDT Plan of Treatment Health Maintenance Due Date Last Done Comments HEPATITIS B VACCINES (3 of 3 - 3-dose series) 06/15/1999 04/20/1999, 02/22/1999 DTAP/TDAP/TD VACCINES (5 - Tdap) 2003 06/30/1996, 1992, 1992, Additional history exists HPV VACCINES (1 - Male 3-dos e series) 2007 INFLUENZA VACCINE (#1) 2025 Procedures Procedure Name Priority Date/Time Associated Diagnosis Comments XR ABDOMEN FOR FEEDING TUBE 1 VW Stat 03/17/2025 4:30 AM CDT POC GLUCOSE Routine 03/17/2025 4:14 AM CDT MAGNESIUM LEVEL Routine 03/17/2025 4:12 AM CDT COMPREHENSIVE METABOLIC PANEL Routine 03/17/2025 4:12 AM CDT CBC WITH DIFFERENTIAL Routine 03/17/2025 4:12 AM CDT TRANSFUSE FROZEN [...] AND SCREEN Stat 03/16/2025 9:50 PM CDT PTT Stat 03/16/2025 9:34 PM CDT PROTIME-INR Stat 03/16/2025 9:34 PM CDT LACTIC ACID Stat 03/16/2025 9:34 PM CDT ETHANOL LEVEL Stat 03/16/2025 9:34 PM CDT COMPREHENSIVE METABOLIC PANEL Stat 03/16/2025 9:34 PM CDT CBC WITH DIFFERENTIAL Stat 03/16/2025 9:34 PM CDT URINALYSIS W/REFLEX MICROSCOPIC Stat 03/16/2025 9:33 PM CDT DRUG SCREEN, URINE Stat 03/16/2025 9: 33 PM CDT XR CHEST PA OR AP 1 VW Stat 9:24 PM CDT POC LACTIC ACID Stat 03/16/2025 9:23 PM CDT BLOOD GAS ARTERIAL Stat 03/16/2025 9: 23 PM CDT CRITICAL CARE Routine 03/16/2025 9:07 PM CDT UNCROSSMATCHED/EMERGEN CY ISSUE BLOOD PRODUCTS Stat 03/16/2025 8:58 PM CDT from Last 3 Months Results * TRANSFUSE FROZEN PLASMA (03/17/2025 5:16 AM CDT) us Royce Ortiz DO BLOOD TRANSFUSION ORDERABLES Fi nal Result [...] lower rib fracture. Remainder unremarkable. us Royce Ortiz DO DIAGNOSTIC IMAGING ORDERABLES F inal Result * POC GLUCOSE (03/17/2025 4:14 AM CDT) Only the most recent of2 resultswithin the time period is included. Pathologist [facility] [place] GLUCOSE POC 97 74 - 99 mg/dL 03/17/2025 4:14 AM CDT [facility] SPECIMEN SOURCE, GLUCOSE POC Arterial 03/17/2025 4:14 AM CDT [facility] Blood, whole 03/17/2025 4:14 AM CDT 03/17/2025 6:07 AM CDT us Royce Ortiz DO POINT OF CARE TESTING Final Res ult Performing Organization Address City/State/[facility] Co de Phone Number [facility] CLIA # [id number] [address] [place] [address] * (ABNORMAL) CBC WITH DIFFERENTIAL (03/17/2025 4:12 AM CDT) Only the most recent of2 resultswithin the time period is included. Pathologist [facility] [place] WBC 10.5 4.8 - 10.8 K/uL 03/17/2025 4:26 AM T [facility] RBC 3.75(L) 4.60 - 6.20 M/uL 03/17/2025 4:26 AM T [facility] HEMOGLOBIN 12.3(L) 14.0 - 18.0 g/dL 03/17/2025 4:26 AM T [facility] HEMATOCRIT 35.5(L) 41.0 - 53.0 % 03/17/2025 4:26 AM T [facility] MCV 94.7 84.0 - 103.0 fL 03/17/2025 4:26 AM T [facility] MCH 32.8 27.0 - 34.0 pg 03/17/2025 4:26 AM [facility] MCHC 34.6 30.0 - 35.0 g/dL 03/17/2025 4:26 AM [facility] PLATELETS 172 140 - 440 K/uL 03/17/2025 4:26 AM [facility] MPV 10.3 8.9 - 12.8 fL 03/17/2025 4:26 AM [facility] RDW 11.9 11.0 - 14.5 % 03/17/2025 4:26 AM [facility] RDW-STDEV 41.1 37.0 - 54.0 fL 03/17/2025 4:26 AM [facility] NEUTROPHILS 73 42 - 75 % 03/17/2025 4:26 AM [facility] LYMPHOCYTES 19(L) 24 - 44 % 03/17/2025 4:26 AM [facility] MONOCYTES 7 2 - 10 % 03/17/2025 4:26 AM [facility] EOSINOPHILS 1 0 - 7 % 03/17/2025 4:26 AM [facility] BASOPHILS 0 0 - 1 % 03/17/2025 4:26 AM [facility] IMMATURE GRANULOCYTES 0 0 - 2 % 03/17/2025 4:26 AM [facility] NEUTROPHIL ABSOLUTE 7.70 2.00 - 8.00 K/uL 03/17/2025 4:26 AM [facility] LYMPHOCYTE ABSOLUTE 2.01 1.20 - 4.00 K/uL 03/17/2025 4:26 AM [facility] MONOCYTE ABSOLUTE 0.71(H) 0.10 - 0.60 K/uL 03/17/2025 4:26 AM [facility] EOSINOPHIL ABSOLUTE 0.05 0.00 - 0.70 K/uL 03/17/2025 4:26 AM [facility] BASOPHILS ABSOLUTE 0.02 0.00 - 0.20 K/uL 03/17/2025 4:26 AM CDT [facility] IMMATURE GRANULOCYTES ABSOLUTE 0.03 0.00 - 0.10 K/uL 03/17/2025 4:26 AM CDT [facility] SMEAR REVIEWED: NA - Not Applicable 03/17/2025 4:26 AM CDT [facility] Blood Arterial / Unknown 4:12 AM CDT 03/17/2025 4:21 AM CDT us Tyrellisi A Causa DO HEMATOLOGY ORDERABLES Final Res ult Performing Organization Address [facility] Co de Phone Number [facility] CLIA # [id number] [address] [address] * MAGNESIUM LEVEL (03/17/2025 4:12 AM CDT) MAGNESIUM 1.7 1.7 - 2.3 mg/dL 03/17/2025 5:36 AM CDT [facility] Blood Arterial / Unknown 4:12 AM CDT 03/17/2025 4:21 AM CDT us Royce Rodrigueza DO CHEMISTRY ORDERABLES Final Resu lt Performing Organization Address [facility] de Phone Number [facility] CLIA # [id number] [address] [address] * (ABNORMAL) COMPREHENSIVE METABOLIC PANEL (03/17/2025 4:12 AM CDT) Only the most recent of2 resultswithin the time period is included. SODIUM 143 136 - 145 mmol/L 03/17/2025 5:36 AM CDT [facility] POTASSIUM 3.6 3.5 - 5.1 mmol/L 03/17/2025 5:36 AM CDT [facility] CHLORIDE 108(H) 98 - 107 mmol/L 03/17/2025 5:36 AM [facility] CO2 23 22 - 29 mmol/L 03/17/2025 5:36 AM [facility] CALCIUM 7.9(L) 8.2 - 9.6 mg/dL 03/17/2025 5:36 AM [facility] BUN 8 8 - 23 mg/dL 03/17/2025 5:36 AM [facility] CREATININE 0.60(L) 0.67 - 1.17 mg/dL 03/17/2025 5:36 AM [facility] Comment:The GFR result is no t clinically significant on patients <18 or >70 years of age. GLUCOSE 89 74 - 99 mg/dL 03/17/2025 5:36 AM [facility] TOTAL PROTEIN 5.5(L) 6.4 - 8.3 g/dL 03/17/2025 5:36 AM [facility] ALBUMIN 3.6 3.5 - 5.2 g/dL 03/17/2025 5:36 AM [facility] BILIRUBIN TOTAL 0.3 0.0 - 1.0 mg/dL 03/17/2025 5:36 AM [facility] ALKALINE PHOSPHATASE 61 40 - 129 U/L 03/17/2025 5:36 AM [facility] AST 28 10 - 50 U/L 03/17/2025 5:36 AM [facility] ALT 29 <=50 U/L 03/17/2025 5:36 AM [facility] GFR >60 mL/min/1. 73 sq meter 03/17/2025 5:36 AM [facility] Comment:eGFR calculated with 2020 CKD-EPI equation. Vegetarian diet, extremely high or low muscle mass, and may affect results. Cystatin C with Glomerular Filtration Rate is a suitable alternative for these patients. ANION GAP 12 9 - 20 mmol/L 03/17/2025 5:36 AM [facility] Blood Arterial / Unknown 4:12 AM CDT 03/17/2025 4:21 AM CDT us Tyrellisi A Causa DO CHEMISTRY ORDERABLES Final Resu lt Performing Organization Address [facility] Co de Phone Number [facility] [place] CLIA # [id number] [address] [address] * PREPARE FRESH FROZEN PLASMA (03/17/2025 1:11 AM CDT) COMPONENT TYPE [id number] [facility] [place] COMPONENT IDENTIFICATION [id number] [facility] [place] UNIT ABO AB [facility] [place] UNIT RH POS [facility] [place] COMPONENT STATUS Issued [facility] [place] COMPONENT EXPIRATION DATE/TIME [id number] [facility] [place] COMPONENT CODING SYSTEM 8400 [facility] [place] VOLUME, BLOOD PRODUCT 339 [facility] [place] Other, specify 03/17/2025 1: 11 AM CDT us Tyrelljesas A Causa DO LAB TRANSFUSION ORDERABLES Edit ed Result - Final Performing Organization Address [facility] Phone Number [facility] [employer] [facility][id number] [address] [place] [address], [place] [phone] * PHOSPHORUS (03/17/2025 12:17 AM CDT) PHOSPHORUS 4.4 2.5 - 4.5 mg/dL 03/17/2025 12:48 AM CDT [facility] [employer] [facility] [place] Blood Arterial / Unknown 12:17 AM CDT 03/17/2025 12:21 AM CDT us Krisi A Causa DO CHEMISTRY ORDERABLES Final Resu lt Performing Organization Address City/[facility]/ZIP Co de Phone Number [facility] # [id number] [address] [facility] [place] [address] * PREPARE WHOLE BLOOD (03/16/2025 10:31 PM CDT) Only the most recent of2 resultswithin the time period is included. COMPONENT TYPE [id number] [facility] [place] COMPONENT IDENTIFICATION [id number] [facility] [place] UNIT ABO O [facility] [place] UNIT RH POS [facility] [place] COMPONENT STATUS Returned [facility] [place] COMPONENT EXPIRATION DATE/TIME [id number] [facility] [place] COMPONENT CODING SYSTEM 5100 [facility] [place] VOLUME, BLOOD PRODUCT 400 [facility] [place] 03/16/2025 10:3 1 PM CDT us Krisi A Causa DO LAB TRANSFUSION ORDERABLES Edit ed Result - Final [facility] [employer] [facility][id number] [address] [place] [address], * VERIFICATION BLOOD GROUP (03/16/2025 10:07 PM CDT) ABO GROUP A 03/16/2025 10:34 PM CDT [facility] [place] RH (D) TYPE Positive 03/16/2025 10:34 PM CDT [facility] [employer] [facility] [place] Blood Venipuncture / Unknown 03/16/2025 10:07 PM CDT 03/16/2025 10:16 PM CDT us Krisi A Causa DO BLOOD BANK ORDERABLES Final Res ult [facility] [employer] [facility] [place] CLIA#[id number] [address] [place] [address], * TYPE AND SCREEN (03/16/2025 9:50 PM CDT) ABO GROUP A 03/16/2025 11:03 PM CDT [facility] [place] RH (D) TYPE Positive 03/16/2025 11:03 PM CDT [facility] [place] ANTIBODY SCREEN Negative 03/16/2025 11:03 PM CDT [facility] [place] Blood Venipuncture / Unknown 03/16/2025 9:50 PM CDT 03/16/2025 10:16 PM CDT us Royce Ortiz DO BLOOD BANK ORDERABLES Edited Re sult - Final [facility] CLIA#[id number] [address] [place] [address], * (ABNORMAL) LACTIC ACID (03/16/2025 9:34 PM CDT) Pathologist [facility] LACTIC ACID 2.4(H) <=2.0 mmol/L 03/16/2025 10:13 PM CDT [facility] Blood Venipuncture / Unknown 03/16/2025 9:34 PM CDT 03/16/2025 9:44 PM CDT us Royce Ortiz DO CHEMISTRY ORDERABLES Final Resu lt [facility] CLIA # [id number] [address] [facility] [place] [address] * PTT (03/16/2025 9:34 PM CDT) PTT 32.7 24.8 - 37.2 seconds 03/16/2025 10:07 PM CDT [facility] Blood Venipuncture / Unknown 03/16/2025 9:34 PM CDT 03/16/2025 9:48 PM CDT [facility] - 03/16/2025 10:07 PM CDT Therapeutic Range: Hi-level PE/DVT heparin protocol 80.1 - 95.0 sec Lo-level PE/DVT heparin protocol 70.1 - 85.0 sec Cardiac Heparin Protocol 70.1 - 100.0 sec us Krisi A Causa DO HEMATOLOGY ORDERABLES Final Res ult Performing Organization Address [facility] Co de Phone Number [facility] CLIA # [id number] [address] [address] [place] [address] * (ABNORMAL) PROTIME-INR (03/16/2025 9:34 PM CDT) PROTIME 16.1(H) 12.7 - 14.9 Seconds 03/16/2025 10:07 PM CDT [facility] INR 1.2 0.8 - 1.2 03/16/2025 10:07 PM CDT [facility] Blood Venipuncture / Unknown 03/16/2025 9:34 PM CDT 03/16/2025 9:48 PM CDT [facility] - 03/16/2025 10:07 PM CDT Expected Values for INR: DVT/PE Goal INR 2.5; range 2.0 - 3.0 Valve Replacement Tissue Goal INR 2.5; range 2.0 - 3.0 Valve Replacement Mechanical Goal INR 3.0; range 2.5 - 3.5 POST-NE Goal INR 2.5; range 2.0 - 3.0 or Goal INR 3.0; range 2.5 - 3.5 Atrial Fibrillation Goal INR 2.5; range 2.0 - 3.0 Ischemic Stroke Goal INR 2.5; range 2.0 - 3.0 us Krisi A Causa DO HEMATOLOGY ORDERABLES Final Res ult Performing Organization Address [facility] de Phone Number [facility] CLIA # [id number] [facility] [address] [address] * (ABNORMAL) ETHANOL LEVEL (03/16/2025 9:34 PM CDT) ETHANOL 315.22(H) <10.10 mg/dL 03/16/2025 10:32 PM CDT [facility] ETHANOL % 0.32(H) <=0.01 %w/v 03/16/2025 10:32 PM CDT [facility] Blood Venipuncture / Unknown 03/16/2025 9:34 PM CDT 03/16/2025 9:48 PM CDT us Krisi A Causa DO CHEMISTRY ORDERABLES Final Resu lt Performing Organization Address [facility] Co de Phone Number [facility] CLIA # [id number] [address] [place] [address] * (ABNORMAL) DRUG SCREEN, URINE (03/16/2025 9:33 PM CDT) AMPHETAMINE QUAL, URINE Negative Negative 03/16/2025 10:33 PM CDT [facility] BARBITURATE QUAL, URINE Negative Negative 03/16/2025 10:33 PM CDT [facility] BENZODIAZEPINE QUAL, URINE Presumptive Positive(A) Negative 03/16/2025 10:33 PM CDT [facility] COCAINE QUAL URINE Negative Negative 03/16/2025 10:33 PM CDT [facility] OPIATE QUAL, URINE Negative Negative 03/16/2025 10:33 PM CDT [facility] CANNABINOIDS QUAL, URINE Presumptive Positive(A) Negative 03/16/2025 10:33 PM CDT [facility] OXYCODONE QUAL, URINE Negative Negative 03/16/2025 10:33 PM CDT [facility] METHADONE QUAL, URINE Negative Negative 03/16/2025 10:33 PM CDT [facility] FENTANYL QUAL, URINE Presumptive Positive(A) Negative 03/16/2025 10:33 PM CDT [facility] CREATININE, URINE 105.6 40.0 - 278.0 mg/dL 03/16/2025 10:33 PM CDT [facility] Comment:Reference Range vari es with fluid intake and diet. Urine URINE SPECIMEN OBTAINED BY CLEAN CATCH PROCEDURE / Unknown Collection / Unknown 03/16/2025 9:33 PM CDT 03/16/2025 9:48 PM CDT Narrative [facility] - 03/16/2025 10:33 PM CDT This test [...] Liliana VEGA URINE ORDERABLES Final Resul t [facility] # [id number] [address] [place] [address] * (ABNORMAL) URINALYSIS WITH REFLEX MICROSCOPIC (03/16/2025 9:33 PM CDT) COLOR UA Yellow Pale to Dark Yellow 03/16/2025 10:00 PM T [facility] CLARITY UA Turbid(A) Clear 03/16/2025 10:00 PM T [facility] SPECIFIC GRAVITY UA 1.015 1.003 - 1.035 03/16/2025 10:00 PM T [facility] PH UA 6.0 5.0 - 8.0 03/16/2025 10:00 PM CDT [facility] LEUKOCYTE ESTERASE UA Negative Negative 03/16/2025 10:00 PM CDT [facility] NITRITE UA Negative Negative 03/16/2025 10:00 PM CDT [facility] PROTEIN UA 1+(A) Negative 03/16/2025 10:00 PM CDT [facility] GLUCOSE UA Negative Negative 03/16/2025 10:00 PM CDT [facility] KETONES UA Negative Negative 03/16/2025 10:00 PM CDT [facility] UROBILINOGEN UA 0.2 <2.0 mg/dL 10:00 PM CDT [facility] BILIRUBIN UA Negative Negative 03/16/2025 10:00 PM CDT [facility] BLOOD UA Negative Negative 03/16/2025 10:00 PM CDT [facility] WBC UA 0-2 0 - 2 /hpf 03/16/2025 10:00 PM CDT [facility] RBC UA 0-2 0 - 2 /hpf 03/16/2025 10:00 PM CDT [facility] BACTERIA UA Negative Negative /hpf 03/16/2025 10:00 PM CDT [facility] AMORPHOUS CRYSTAL Present(A) Absent 03/16/2025 10:00 PM T [facility] Urine URINE SPECIMEN OBTAINED BY CLEAN CATCH PROCEDURE / Unknown Collection / Unknown 03/16/2025 9:33 PM CDT 03/16/2025 9:45 PM CDT us Shamar Awad MD URINE ORDERABLES Final Res ult [facility] CLIA # [id number] [facility] [address] [place] [address] * XR CHEST PA OR AP 1 [...] HISTORY: ASSOCIATED DIAGNOSIS: Trauma ORDERING PROVIDER: [facility] TECHNOLOGISTS NOTE: COMPARISON: None FINDINGS: Lines, tubes, and devices: The endotracheal tube terminates 5.9 cm above the corky. The enteric tube courses along the esophagus and terminates in the [id number]. Lungs and pleura: Left suprahilar opacities may represent pulmonary contusion in the setting of trauma. No effusion or pneumothorax. Cardiomediastinal silhouette: Normal cardiomediastinal silhouette. Musculoskeletal: Unremarkable. Procedure Note Roger Moffett MD - 03/17/2025 EXAMINATION: XR CHEST PA OR AP 1 VW CLINICAL HISTORY: ASSOCIATED DIAGNOSIS: Trauma ORDERING PROVIDER: [facility] [employer] NOTE: COMPARISON: None FINDINGS: Lines, tubes, and devices: The endotracheal tube terminates 5.9 cm above the corky. The enteric tube courses along the esophagus and terminates in the [id number]. Lungs and pleura: Left suprahilar opacities may represent pulmonary contusion in the setting of trauma. No effusion or pneumothorax. Cardiomediastinal silhouette: Normal cardiomediastinal silhouette. Musculoskeletal: Unremarkable. IMPRESSION: 1. Left suprahilar opacities may represent pulmonary contusion in the setting of trauma. 2. Appropriate position of endotracheal tube. MACRO: None us Protocol [facility] MD DIAGNOSTIC IMAGING ORD ERABLES Final Result * (ABNORMAL) POC LACTIC ACID (03/16/2025 9:23 PM CDT) LACTIC ACID POC 2.1(H) <=2.0 mmol/L 03/16/2025 9:23 PM CDT [facility] SPECIMEN SOURCE, GASES POC Arterial 03/16/2025 9:23 PM T [facility] SITE POC ART PUNCT 03/16/2025 9:23 PM CDT [facility] Blood 03/16/2025 9:23 PM CDT 03/16/2025 9:24 PM CDT Narrative [facility] - 03/16/2025 9:23 PM CDT References ranges displayed are for Arterial samples. us Shamar Awad MD POINT OF CARE TESTING Terri fournier Result [facility] CLIA # [id number] [address] [place] [address] * (ABNORMAL) BLOOD GAS ARTERIAL (03/16/2025 9:23 PM CDT) PH BLOOD POC 7.28(L) 7.35 - 7.45 03/16/2025 9:23 PM [facility] PCO2 POC 52(H) 35 - 45 mm Hg 03/16/2025 9:23 PM [facility] PO2 POC 216(H) 80 - 105 mm Hg 03/16/2025 9:23 PM [facility] HCO3 (CALC) POC 24 22 - 26 mmol/L 03/16/2025 9:23 PM [facility] HEMOGLOBIN POC 13.7 12.0 - 18.0 g/dL 03/16/2025 9:23 PM [facility] BASE EXCESS POC -2 -2 - 3 mmol/L 03/16/2025 9:23 PM [facility] O2 SATURATION POC 100(H) 95 - 98 % 025 9:23 PM [facility] SODIUM POC 143 138 - 146 mmol/L 03/16/2025 9:23 PM [facility] POTASSIUM POC 4.2 3.5 - 4.9 mmol/L 03/16/2025 9:23 PM [facility] HEMATOCRIT POC 41 38 - 51 % 03/16/2025 9:23 PM CDT [facility] PH TEMP CORRECT 7.28(L) 7.35 - 7.45 03/16/2025 9:23 PM T [facility] PCO2 TEMP CORRECT 52(H) 35 - 45 mm Hg 03/16/2025 9:23 PM T [facility] PO2 TEMP CORRECT 216(H) 80 - 105 mm Hg 03/16/2025 9:23 PM T [facility] SPECIMEN SOURCE, GASES POC Arterial 03/16/2025 9:23 PM T [facility] CALCIUM IONIZED POC 4.3(L) 4.8 - 5.2 mg/dL 03/16/2025 9:23 PM T [facility] TCO2 (CALC) POC 26 23 - 27 mmol/L 03/16/2025 9:23 PM T [facility] FIO2 60.0 21.0 - 100.0 % 03/16/2025 9:23 PM T [facility] Comment:FIO2 values reported <21.0 indicate O2 flow in Liters/minute. Values >/= 21.0 indicate percent O2. P/F RATIO POC 360 03/16/2025 9:23 PM T [facility] Comment: P/F Ratio Interpretation ARDS SEVERITY PaO2/FiO2 Mild 200-300 Moderate 100-200 Severe <100 PEEP POC 8 03/16/2025 9:23 PM T [facility] PUNC SITE POC ART PUNCT 03/16/2025 9:23 PM T [facility] VENT MODE POC APRV 03/16/2025 9:23 PM T [facility] Blood, arterial 03/16/2025 9 :23 PM CDT 03/16/2025 9:24 PM CDT us Tyrellisnathaniel A Causa DO ABG ORDERABLES Final Result [facility] CLIA # [id number] [facility] [place] [address] * Critical Care (03/16/2025 9:07 PM CDT) [...] specialty: no Care discussed with: admitting provider us Shamar Awad MD PROCEDURE/MINOR SURGICAL O RDERABLES Final Result * UNCROSSMATCHED/EMERGENCY ISSUE BLOOD PRODUCTS (03/16/2025 8:58 PM CDT) UNCROSSMATCHED UNITS Order Complete 03/16/2025 10:27 PM CDT [facility] [employer] [facility] Other, specify 03/16/2025 8: 58 PM CDT 03/16/2025 8:58 PM CDT us Krisi A Causa DO BLOOD BANK ORDERABLES Final Res ult [facility] [employer] [facility] CLIA#[id number] [address] [place] [address], [place] [phone] from Last 3 Months Insurance [place]ICA[place] Advance Directives For more information, please contact: [phone] * Full Code (Latest Code Status on File) Date Activated Date Inactivated Comments 03/16/2025 9:38 PM 03/17/2025 1:14 PM Care Teams [employer] Operator Relationship Specialty Start Date End Date Non-Staff, Physician NO ADDRESS ON FILE PCP - General 09/04/07
--- OUTSIDE RECORDS SUMMARY | 2025-03-17 20:46 | XMS_ITS | Encounter Summary ---
Author Organization [facility] Address [address] [place] [address] Care Team Providers Care Bill Adjuster Name Role Phone Non-Staff, Physician Primary Care Provider Unava ilable Encounter Details Date Type Department Care Team (Latest Contact Info) Description 05/01/2000 Outpatient Historical [facility] Family Medicine [address] [id number] Gerri Delacruz NO ADDRESS ON FILE Acute tonsillitis (Primary Dx) Social History Tobacco Use Types Packs/Day Years Used Date Smoking Tobacco: Never Assessed Sex and Gender Information Value Date Recorded Sex Assigned at Not on file 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
--- OUTSIDE RECORDS SUMMARY | 2025-03-17 20:46 | XMS_ITS | Encounter Summary ---
Author Organization [facility] Address [address] [place] [address] Care Team Providers Care Eeg Technician Name Role Phone Non-Staff, Physician Primary Care Provider Unava ilable Encounter Details Date Type Department Care Team (Latest Contact Info) Description 06/27/2007 Outpatient Historical [facility] Orthopedics[facility] 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
--- OUTSIDE RECORDS SUMMARY | 2025-03-17 20:46 | XMS_ITS | Clinical Summary ---
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
--- OUTSIDE RECORDS SUMMARY | 2025-03-17 20:46 | XMS_ITS | Encounter Summary ---
Author Organization [facility] Address [address] [place] [address] Care Team Providers Care Primary Care Sales Representative Name Role Phone Non-Staff, Physician Primary Care Provider Unava ilable Encounter Details Date Type Department Care Team (Latest Contact Info) Description 11/20/1999 Outpatient Historical [facility] Family Medicine [place] [address] [facility] [address] [place] [phone] Edi Jacobs MD [address] [address] Routine child health exam (Primary Dx) Social History Tobacco Use Types Packs/Day Years Used Date Smoking Tobacco: Never Assessed Sex and Gender Information Value Date Recorded Sex Assigned at Not on file 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
[2025-03-17 20:47] VITALS: BP 141/77; PULSE 69; RESP 16; TEMP 37.1; O2SAT 97
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
[2025-03-17 22:00] VITALS: BP 122/78; PULSE 67; O2SAT 95
[2025-03-18] MEDS: HYDROcodone-acetaminophen 10-325 mg Tablet 1 TAB PO (00:53)
[2025-03-18 02:59] VITALS: BP 113/60; PULSE 72; O2SAT 92
== END 2025-03-18 00:51 | disposition home or self-care (01) ==
PROVIDERS: Emergency Provider Physician Assistant
DX: S02.601A Fracture of unspecified part of body of right mandible, initial encounter for closed fracture (principal); S02.2XXA Fracture of nasal bones, initial encounter for closed fracture; Y09 Assault by unspecified means
CPT/HCPCS: 70486; 99284; J9999

== ENCOUNTER 2025-07-21 18:40 | Emergency (ER) | payer MEDICAID, SELFPAY ==
[2024-05-08 10:02] VITALS: BP 120/69
[2025-07-21 18:30] VITALS: BP 132/75; PULSE 72; RESP 17; TEMP 36.4; O2SAT 100
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
== END 2025-07-21 22:48 | disposition home or self-care (01) ==
PROVIDERS: Emergency Provider Emergency Medicine
DX: N50.811 Right testicular pain (principal); Y08.09XA Assault by strike by other specified type of sport equipment, initial encounter; Z87.891 Personal history of nicotine dependence
CPT/HCPCS: 76870; 99284